=== PATIENT | female | born 1945 | race African-American/Black ===

== ENCOUNTER 2017-03-18 20:50 | Inpatient (IN) | payer OTHER, MEDICAID ==
[~2017-03-18] VITALS: Ht 152.4 cm; Wt 65.8 kg
[2017-03-18 21:02] VITALS: BP 102/63
--- NOTE | 2017-03-18 21:56 | NUR ---
PT TAKEN TO BED 10
--- NOTE | 2017-03-18 21:56 | NUR ---
PT FAMILY DID STATE PT ON 02 AT HOME BUT PT CURRENTLY O2SAT IS 100% ON ROOM AIR
--- NOTE | 2017-03-18 21:56 | NUR ---
71Y F BIB FAMILY C/O GENERALIZED WEAKNESS WITH DIARRHEA X 2 WKS. HX. , HTN, HEART MURMUR, LESION AT LUNG, ON O2 AT HOME. PT IS VERBAL AND OBEYS SIMPLE COMMANDS. PT STATES SHE LOSS 20LBS 2 WEEKS AGO WHEN SHE HAD DIARRHEA. FAMILY STATES 2 WEEKS AGO PT WAS AMBULATORY WITH WALKER BUT NOT DOES NOT WANT TO WALK. PT AAOX4. FAMILY IS AT BEDSIDE.
[2017-03-18] MEDS ORDERED: NACL 0.9% 500 ML IV SCH (22:18)
[2017-03-18] MEDS ORDERED: NACL 0.9% 500 ML IV ONE (22:20)
[2017-03-18 22:51] LABS: APPEARANCE,URINE CLEAR (CLEAR); BILIRUBIN,URINE NEGATIVE (NEGATIVE); BLOOD, URINE NEGATIVE (NEGATIVE); COLOR,URINE YELLOW (YELLOW); LEUKOCYTE ESTERASE ,URINE NEGATIVE (NEGATIVE); NITRITE, URINE NEGATIVE (NEGATIVE); UGLUCOSE NEGATIVE (NEGATIVE)
[2017-03-18 22:54] LABS: BASOPHILS % (AUTO) 0.9 % (0.0-2.0); EOSINOPHILS # (AUTO) 0.1 K/uL (0-0.4); EOSINOPHILS % (AUTO) 2.1 % (0.0-4.0); HEMOGLOBIN 10.9 g/dL (12.0-16.0); MEAN CORPUSCULAR HEMOGLOBIN 27 pg (27-31); MEAN CORPUSCULAR HGB CONC 33 g/dL (33-37); MEAN CORPUSCULAR VOLUME 83 fL (80-94); MONOCYTES # (AUTO) 0.7 K/uL (0.8-1.0); MONOCYTES % (AUTO) 13.2 % (1.7-9.3); NEUTROPHILS # (AUTO) 3.6 K/uL (1.8-7.7); NEUTROPHILS % (AUTO) 65.8 % (42.2-75.2); PLATELET COUNT (AUTO) 173 K/uL (140-450); RED CELL DISTRIBUTION WIDTH 15.2 % (11.6-13.7); WHITE BLOOD COUNT (AUTO) 5.4 K/uL (4.8-10.8)
[2017-03-18 22:59] LABS: ALBUMIN 3.7 g/dL (3.4-5.0); ANION GAP 16.5 (8-16); ASPARTATE AMINOTRANSFERASE 29 U/L (15-37); CARBON DIOXIDE 24.5 mmol/L (21-32); CHLORIDE 100 mmol/L (98-107); CREATININE 1.9 mg/dL (0.6-1.3); GLUCOSE 109 mg/dL (74-106); SODIUM SERUM 137 mmol/L (136-145); TOTAL BILIRUBIN 0.5 mg/dL (0.0-1.0); UREA NITROGEN, BLOOD 25 mg/dL (7-18)
[2017-03-18 23:12] LABS: HYALINE CASTS, URINE 0-10 /LPF (None Seen); RBC,URINE 0-5 (RARE) /HPF (0-5); WBC,URINE 0-5 (RARE) /HPF (0-5)
[2017-03-18] MEDS ORDERED: CLOPIDOGREL 75 MG TAB PO ONE (23:35)
[2017-03-18] MEDS ORDERED: ASPIRIN 81 MG TAB.CHEW PO ONE (23:35)
--- NOTE | 2017-03-19 00:06 | NUR ---
EMERGENCY CONTACT ROSIBEL PISANO [phone]
[2017-03-19] MEDS ORDERED: LEVA0.6318 INH (00:08)
[2017-03-19] MEDS ORDERED: DALIRESP PO (00:08)
[2017-03-19] MEDS ORDERED: ZOLP5TAB1 PO (00:08)
[2017-03-19] MEDS ORDERED: BUDE1AER IH (00:08)
[2017-03-19] MEDS ORDERED: HYDROcodone/APAP 5/325 MG 1 TAB TAB PO PRN (00:10)
[2017-03-19] MEDS ORDERED: NON-FORMULARY ITEM (Levalbuterol HCl* (Xopenex*) 0.63 MG) INH PRN (00:10)
[2017-03-19] MEDS ORDERED: NITROGLYCERIN 0.4 MG TAB SL PRN (00:10)
[2017-03-19] MEDS ORDERED: ACETAMINOPHEN 325 MG TAB PO PRN (00:10)
[2017-03-19] MEDS ORDERED: MORPHINE SULFATE 2 MG/ML SYR IVP PRN (00:10)
[2017-03-19] MEDS ORDERED: ONDANSETRON 4 MG/2 ML VIAL IVP PRN (00:10)
[2017-03-19] MEDS ORDERED: ALUMINUM HYD/MAG/SIMETHICONE 30 ML UDC PO PRN (00:10)
[2017-03-19] MEDS ORDERED: LORazepam 1 MG TAB PO PRN (00:10)
[2017-03-19] MEDS ORDERED: ATOR20TA PO (00:14)
[2017-03-19] MEDS ORDERED: HYDR100T79 PO (00:14)
[2017-03-19] MEDS ORDERED: TRA200 PO (00:14)
[2017-03-19] MEDS ORDERED: VALS320T2 PO (00:14)
[2017-03-19] MEDS ORDERED: RISP0.5T3 PO (00:14)
[2017-03-19] MEDS ORDERED: FERR325E14 PO (00:14)
[2017-03-19] MEDS ORDERED: HYDR-133 PO (00:14)
[2017-03-19 00:35] VITALS: BP 145/75
--- NOTE | 2017-03-19 00:35 | NUR ---
RECEIVED PATIENT FROM ER. PATIENT A&OX4. PATIENT DENIES PAIN. PATIENT STATES HAVING SHORTNESS OF BREATH, HEAD OF THE BED IN HIGH POSITION, O2 SAT IS 100% ON ROOM AIR. PATIENT IS NOT IN OBVIOUS DISTRESS. IV SITE PATENT AND INTACT. PATIENT IS ORIENTED TO ROOM. SAFETY MEASURES ENSURED. CALL LIGHT WITHIN REACH. WILL CONTINUE TO MONITOR.
--- NOTE | 2017-03-19 00:40 | NUR ---
Patient will be admitted to care of DR GARCIA. Admited to TELE 124A. Will go to room 124A. Belongings list completed. Report to KAUR FRANCISCO .
[2017-03-19 04:00] VITALS: BP 119/62
--- NOTE | 2017-03-19 05:15 | NUR ---
PATIENT RESTING IN BED. PATIENT DENIES PAIN. STATES SLIGHT SOB. HEAD OF BED IN HIGH POSITION. O2 IS AT 2L VIA NASAL CANNULA. NO SIGNS OF DISTRESS NOTED. SAFETY MEASURES ENSURED. CALL LIGHT WITHIN REACH. WILL CONTINUE TO MONITOR.
--- NOTE | 2017-03-19 07:16 | NUR ---
ENDORSED PLAN OF CARE TO AM RN. PATIENT IN STABLE CONDITION.
--- NOTE | 2017-03-19 07:17 | NUR ---
RECEIVED REPORT FROM RESCUE WORKER NURSE. PATIENT LYING IN BED SLEEPING, AROUSABLE BY VOICE. NO DISTRESS NOTED. DENIES ANY PAIN AT THIS TIME. RESPIRATIONS EVEN, UNLABORED, ON O2 2L/MIN VIA NC. AAOX4, CALM, COOPERATIVE, SKIN WARM TO TOUCH, COLOR APPROPRIATE TO ETHNICITY. LUNGS CTA ON ALL LOBES. ABDOMEN SOFT, NON-DISTENDED. IV SITE INTACT, PATENT, ON SALINE LOCK. SKIN IS INTACT THROUGHOUT BODY. PATIENT IS ON BEDREST. REVIEWED PLAN OF CARE WITH PATIENT. PATIENT VERBALIZED UNDERSTANDING. SAFETY MEASURES IN PLACE, CALL LIGHT WITHIN REACH, FALL PREVENTIONS IN PLACE. WILL CONTINUE TO MONITOR.
[2017-03-19 07:28] LABS: CREATINE KINASE MB 7.2 ng/mL (0-3.6)
[2017-03-19 08:00] VITALS: BP 113/65
[2017-03-19] MEDS ORDERED: BUDESONIDE IH SCH (09:00)
[2017-03-19] MEDS ORDERED: FORMOTEROL FUMARATE IH SCH (09:00)
[2017-03-19] MEDS ORDERED: [UNRECOGNIZED DRUG - OTHER] IH SCH (09:00)
[2017-03-19] MEDS ORDERED: XOPENEX INHALER INH PRN (09:30)
[2017-03-19] MEDS: DOCUSATE SODIUM 100 MG GELCAP PO SCH (09:30)
--- NOTE | 2017-03-19 09:33 | NUR ---
PATIENT LYING DOWN IN BED SLEEPING, AROUSABLE BY VOICE. NO DISTRESS NOTED. DENIES ANY PAIN. SCHEDULED MEDICATIONS DUE GIVEN. PATIENT TOLERATED WELL. TREMORS NOTED ON B/L UE AND HEAD UPON ACTIVITY. SAFETY MEASURES IN PLACE, CALL LIGHT WITHIN REACH. WILL CONTINUE TO MONITOR.
[2017-03-19] MEDS ORDERED: ALBUTEROL SULFATE/IPRATROPIU 3 ML SOL IH PRN (09:40)
--- NOTE | 2017-03-19 09:50 | NUR ---
PATIENT HAS BEEN SCREENED AND CATEGORIZED HIGH NUTRITION RISK. PATIENT WILL BE SEEN WITHIN 1-2 DAYS OF ADMISSION. 03/19/17-03/20/[address]
--- NOTE | 2017-03-19 11:30 | NUR ---
PATIENT SITTING IN BED COMFORTABLY. NO DISTRESS NOTED. DENIES ANY PAIN AT THIS TIME. RESPIRATIONS EVEN, UNLABORED, ON O2 2L/MIN VIA NC. SAFETY MEASURES IN PLACE, CALL LIGHT WITHIN REACH. WILL CONTINUE TO MONITOR.
[2017-03-19 12:00] VITALS: BP 128/73
--- NOTE | 2017-03-19 12:30 | NUR ---
PATIENT SITTING IN BED WITH LUNCH TRAY IN FRONT. NO DISTRESS NOTED. DENIES ANY PAIN AT THIS TIME. ASSISTED KOSHER DIETARY SERVICE MANAGER IN CLEANING AND REPOSITIONING PATIENT. SAFETY MEASURES IN PLACE, CALL LIGHT WITHIN REACH. WILL CONTINUE TO MONITOR.
--- NOTE | 2017-03-19 13:15 | NUR ---
Jonathan SAMANIEGO, AT BEDSIDE REVIEWING PLAN OF CARE WITH PATIENT. WILL CONTINUE TO MONITOR.
--- NOTE | 2017-03-19 13:45 | NUR ---
DR. VASQUEZ AT BEDSIDE REVIEWING PLAN OF CARE WITH PATIENT. WILL CONTINUE TO MONITOR.
[2017-03-19] MEDS: NACL 0.9% 1,000 ML IV SCH ×2 (13:54→18:48)
[2017-03-19] MEDS: ALBUTEROL SULFATE/IPRATROPIU 3 ML SOL IH SCH ×2 (14:51→19:56)
[2017-03-19 15:18] LABS: CREATINE KINASE MB 7.4 ng/mL (0-3.6)
[2017-03-19 16:00] VITALS: BP 137/72
--- NOTE | 2017-03-19 16:47 | NUR ---
PATIENT SITTING IN BED WATCHING TV. NO DISTRESS NOTED. CONDITION UNCHANGED. ASSISTED WAREHOUSE SHIFT SUPERVISOR IN CLEANING AND REPOSITIONING PATIENT. SAFETY MEASURES IN PLACE, CALL LIGHT WITHIN REACH. WILL CONTINUE TO MONITOR.
--- NOTE | 2017-03-19 17:30 | NUR ---
ASSISTED PATIENT ON BEDPAN AND CLEANED AND REPOSITIONED PATIENT AFTERWARDS. BED ALARM ON. WILL CONTINUE TO MONITOR.
[2017-03-19] MEDS ORDERED: ECOTRIN 81 MG TABEC PO SCH (17:33)
--- NOTE | 2017-03-19 18:49 | NUR ---
PATIENT SITTING IN BED WATCHING TV. NO DISTRESS NOTED. DENIES ANY PAIN. SCHEDULED MEDICATIONS DUE GIVEN. SAFETY MEASURES IN PLACE, CALL LIGHT WITHIN REACH. WILL CONTINUE TO MONITOR.
--- NOTE | 2017-03-19 19:20 | NUR ---
GAVE REPORT TO EMT DISPATCHER NURSE TO CONTINUITY OF CARE. PATIENT IN STABLE CONDITION.
--- NOTE | 2017-03-19 19:22 | NUR ---
RECEIVED PT SLEEPING, EASILY AROUSABLE, AAOX4, DENIES ANY PAIN, NO SOB NOTED, VITAL SIGNS STABLE, IVF INFUSING WELL, PLAN OF CARE DISCUSS, SAFETY MEASURES IN PLACE, CALL LIGHT WITHIN REACH.
[2017-03-19 20:00] VITALS: BP 141/66
--- NOTE | 2017-03-19 20:10 | NUR ---
PT USES BEDPAN WITH ASSIST FORM TEST CONSULTANT, VOIDED FREELY.
[2017-03-19] MEDS ORDERED: DALIRESP 500 MCG PO SCH (21:00)
--- NOTE | 2017-03-19 21:10 | NUR ---
DUE PO MEDS TAKEN WITH EDUCATION PROVIDED, READY FOR CPAP, WILL NOTIFY RT, ALL NEEDS ATTENDED.
[2017-03-19] MEDS: DALIRESP 500MCG TAB PO SCH (21:12)
[2017-03-19] MEDS: SYMBICORT INH SCH (21:12)
[2017-03-19] MEDS: ZOLPIDEM 5 MG TAB PO SCH (21:12)
--- NOTE | 2017-03-19 21:35 | NUR ---
CALLED TO BEDSIDE, PT IS READY TO SLEEP, PLACED ON CPAP, TOLERATING WELL, PT STATES COMFORT, CONT PULSE OX ON O2 SAT 100%, WILL CONT TO MONITOR.
[2017-03-20] VITALS: BP 150/89
--- NOTE | 2017-03-20 | NUR ---
PT SLEEPING, EASILY AROUSABLE, VITAL SIGNS TAKEN, BP SLIGHTLY ELEVATED, DENIES CHEST PAIN, NO SOB NOTED, ON C-PAP, TOLERATING WELL, IVF INFUSING WELL, CONTINUE TO MONITOR CLOSELY.
[2017-03-20] MEDS: NACL 0.9% 1,000 ML IV SCH ×5 (00:53→16:43)
--- NOTE | 2017-03-20 03:49 | NUR ---
PT SLEEPING, EASILY AROUSABLE, VITAL SIGNS TAKEN, BP ELEVATED 162/91, ASYMPTOMATIC, DENIES ANY PAIN, NO SOB NOTED, ON C-PAP AT THIS TIME, PAGED DR Amanda GARCIA, WITH NEW ORDER.
[2017-03-20 04:00] VITALS: BP 162/91
[2017-03-20] MEDS: cloNIDine 0.1 MG TAB PO PRN ×3 (04:06→20:07)
--- NOTE | 2017-03-20 05:39 | NUR ---
PT READY TO BE TAKEN OFF CPAP FOR THE DAY, PLACED ON 1LPM NC, TOLERATING WELL, O2 SAT 100%, WILL ENDORSE TO DAY SHIFT
--- NOTE | 2017-03-20 05:50 | NUR ---
BP RECHECKED WITH 157/82, HR-74, ASYMPTOMATIC, DENIES ANY PAIN, NO SOB NOTED, ON O2 AT 1L/NC, SAT-100%, IVF INFUSING WELL, MONITORED CLOSELY.
[2017-03-20 06:13] LABS: BASOPHILS # (AUTO) 0.1 K/uL (0.00-0.22); EOSINOPHILS # (AUTO) 0.1 K/uL (0-0.4); LYMPHOCYTES # (AUTO) 0.8 K/uL (2.5-16.5); LYMPHOCYTES % (AUTO) 17.5 % (20.5-51.1); MONOCYTES # (AUTO) 0.6 K/uL (0.8-1.0); RED CELL DISTRIBUTION WIDTH 15.1 % (11.6-13.7)
[2017-03-20 06:32] LABS: BASOPHILS % (AUTO) 1.8 % (0.0-2.0); EOSINOPHILS % (AUTO) 2.8 % (0.0-4.0); HEMATOCRIT 28.5 % (36-48); HEMOGLOBIN 9.6 g/dL (12.0-16.0); MEAN CORPUSCULAR HEMOGLOBIN 28 pg (27-31); MEAN CORPUSCULAR HGB CONC 34 g/dL (33-37); MEAN CORPUSCULAR VOLUME 82 fL (80-94); MONOCYTES % (AUTO) 13.4 % (1.7-9.3); NEUTROPHILS # (AUTO) 3.1 K/uL (1.8-7.7); NEUTROPHILS % (AUTO) 64.5 % (42.2-75.2); PLATELET COUNT (AUTO) 149 K/uL (140-450); RED BLOOD CELL COUNT(AUTO) 3.46 MIL/uL (4.20-5.40); WHITE BLOOD COUNT (AUTO) 4.7 K/uL (4.8-10.8)
[2017-03-20 06:37] LABS: ANION GAP 12.7 (8-16); CARBON DIOXIDE 23.3 mmol/L (21-32); CHLORIDE 102 mmol/L (98-107); CREATININE 1.3 mg/dL (0.6-1.3); GLUCOSE 103 mg/dL (74-106); SODIUM SERUM 134 mmol/L (136-145); UREA NITROGEN, BLOOD 22 mg/dL (7-18)
[2017-03-20 06:45] LABS: MAGNESIUM 1.1 mg/dL (1.8-2.4); PHOSPHORUS 2.7 mg/dL (2.5-4.9)
--- NOTE | 2017-03-20 07:18 | NUR ---
PT EASILY AROUSABLE, NO DISTRESS NOTED, BEDSIDE REPORT GIVEN TO RN KY FOR CONTINUITY OF CARE.
--- NOTE | 2017-03-20 07:19 | NUR ---
RECEIVED REPORT FROM CONDENSER OPERATOR RN AT BEDSIDE FOR CONTINUITY OF CARE. PATIENT IS SLEEPING, EASILY AROUSABLE, AAOX4, DENIES ANY PAIN, NO SOB NOTED, BREATHING EVEN AND UNLABORED. IV ON R AC WITH NS @ 200 ML/HR, INFUSING WELL, SCDS IN PLACE, SAFETY MEASURES IN PLACE, BED ON LOWEST SETTING, BED ALARM ON, CALL LIGHT WITHIN REACH, WILL CONTINUE TO MONITOR PATIENT.
[2017-03-20] MEDS: SYMBICORT INH SCH ×2 (07:30→19:03)
[2017-03-20] MEDS: ALBUTEROL SULFATE/IPRATROPIU 3 ML SOL IH SCH ×3 (07:32→19:01)
[2017-03-20 08:00] VITALS: BP 136/78
[2017-03-20] MEDS: DOCUSATE SODIUM 100 MG GELCAP PO SCH (08:17)
[2017-03-20] MEDS: DALIRESP 500MCG TAB PO SCH ×2 (08:17→20:07)
--- NOTE | 2017-03-20 08:20 | NUR ---
ADMINISTERED MORNING MEDICATIONS, PATIENT TOLERATED IT WELL. PATIENT'S OWN INHALER, SYMBICORT, WAS NOT FOUND IN PYXIS, YELLOW BIN, OR PATIENT'S ROOM. PHARMACY MADE AWARE, THEY STATED THAT IT SHOULD BE ON THE FLOOR. MEDICATION NOT ADMINISTERED. NO SIGNS OF DISTRESS OR SOB NOTED, PATIENT BREATHING EVEN AND UNLABORED ON O2 1L VIA NC. SAFETY MEASURES IN PLACE, CALL LIGHT WITHIN REACH, WILL CONTINUE TO MONITOR PATIENT..
[2017-03-20] MEDS ORDERED: DALIRESP 500 MCG PO SCH (09:00)
[2017-03-20] MEDS ORDERED: MAG SULF 2000 MG/WATER PREMIX 50 ML IV SCH (09:31)
--- NOTE | 2017-03-20 10:15 | NUR ---
PHYSICAL THERAPY WITH THE PATIENT. WILL AWAIT RESULTS.
--- NOTE | 2017-03-20 10:45 | NUR ---
PATIENT'S COUSIN, ROSIBEL, CALLED. SHE WAS UPDATED WITH PATIENT' PLAN OF CARE. PATIENT CURRENTLY RESTING IN BED, RECD. BREATHING EVEN AND UNLABORED. SAFETY MEASURES IN PLACE, BED ON LOWEST SETTING, BED ALARM ON, CALL LIGHT WITHIN REACH, WILL CONTINUE TO MONITOR PATIENT..
[2017-03-20 12:00] VITALS: BP 169/81
--- NOTE | 2017-03-20 12:45 | NUR ---
PATIENT RESTING, FAMILY AT BEDSIDE. NO SIGNS OF DISTRESS OR SOB NOTED. BREATHING EVEN AND UNLABORED. SAFETY PRECAUTIONS IN PLACE, BED ON LOWEST SETTING, BED ALARM ON, CALL LIGHT WITHIN REACH, WILL CONTINUE TO MONITOR PATIENT.
--- NOTE | 2017-03-20 15:14 | NUR ---
03/20/2017 RD INITIAL ASSESSMENT COMPLETED PLEASE REFER TO NUTRITION ASSESSMENT UNDER CARE ACTIVITY FOR ESTIMATED NUTRITIONAL NEEDS. 1. CONTINUE CURRENT DIET TOLERATED. RD TO FOLLOW-UP IN 3-5 DAYS PATIENT IS MODERATE RISK. ANAYELI ZAVALA RD
--- NOTE | 2017-03-20 15:30 | NUR ---
PATIENT'S NIECE, ROSIBEL, STATED THAT THE PATIENT HAD RECENTLY HAD A CT OF THE ABDOMEN DONE AT [facility], RESULTS SENT TO HER PCP, DR. LYNN VICTOR. DR. VASQUEZ AWARE. HE REQUESTED THOSE RECORDS. DISCLOSURE OF HEALTH INFORMATION FORM SIGNED BY PATIENT HAS BEEN FAXED OVER TO DR. VICTOR'S OFFICE AT [phone]. AWAITING RESPONSE.
[2017-03-20 16:00] VITALS: BP 147/74
--- NOTE | 2017-03-20 17:15 | NUR ---
PATIENT RESTING IN BED, NO SIGNS OF DISTRESS NOTED. PATIENT DENIES PAIN. SAFETY PRECAUTIONS IN PLACE, BED ON LOWEST SETTING, BED ALARM ON, CALL LIGHT WITHIN REACH. WILL CONTINUE TO MONITOR PATIENT.
--- NOTE | 2017-03-20 19:20 | NUR ---
REPORT GIVEN TO MAINTENANCE PLANNER NURSE AT BEDSIDE FOR CONTINUITY OF CARE. PATIENT IN STABLE CONDITION.
--- NOTE | 2017-03-20 19:21 | NUR ---
PATIENT REPORT RECEIVED FROM MORNING NURSE AT BEDSIDE. PATIENT IS AWAKE AND ALERT. NO SIGNS AND SYMPTOMS OF DISTRESS NOTED. NO COMPLAINTS OF PAIN AT THIS TIME. IV SITE NOTED ON RIGHT AC, IVF INFUSING WELL. PATIENT ON O2 1L NC. SKIN IS INTACT. BED IN LOWEST POSITION, SIDE RAILS UP AND CALL LIGHT WITHIN REACH. WILL CONTINUE TO MONITOR.
[2017-03-20 20:00] VITALS: BP 158/89
[2017-03-20] MEDS: ZOLPIDEM 5 MG TAB PO SCH (20:06)
--- NOTE | 2017-03-20 22:00 | NUR ---
ASSISTED PATIENT WITH BEDPAN. PATIENT VOIDED. PERICARE DONE. PATIENT TOLERATED WELL. WILL CONTINUE TO MONITOR.
[2017-03-21] VITALS: BP 147/86
--- NOTE | 2017-03-21 | NUR ---
CHECKED ON PATIENT PATIENT IS ASLEEP. NO SIGNS AND SYMPTOMS OF DISTRESS NOTED. BREATHING EVEN AND UNLABORED. BED IN LOWEST POSITION, SIDE RAILS UP. WILL CONTINUE TO MONITOR.
[2017-03-21 04:00] VITALS: BP 140/74
--- NOTE | 2017-03-21 04:00 | NUR ---
CHECKED ON PATIENT. PATIENT IS ASLEEP. NO SIGNS AND SYMPTOMS OF DISTRESS NOTED. WILL CONTINUE TO MONITOR.
[2017-03-21] MEDS: NACL 0.9% 1,000 ML IV SCH (04:04)
[2017-03-21 05:47] LABS: BASOPHILS % (AUTO) 0.5 % (0.0-2.0); EOSINOPHILS # (AUTO) 0.1 K/uL (0-0.4); EOSINOPHILS % (AUTO) 2.1 % (0.0-4.0); HEMATOCRIT 26.4 % (36-48); HEMOGLOBIN 8.8 g/dL (12.0-16.0); LYMPHOCYTES # (AUTO) 0.7 K/uL (2.5-16.5); MEAN CORPUSCULAR HEMOGLOBIN 28 pg (27-31); MEAN CORPUSCULAR HGB CONC 33 g/dL (33-37); MEAN CORPUSCULAR VOLUME 84 fL (80-94); MONOCYTES # (AUTO) 0.6 K/uL (0.8-1.0); NEUTROPHILS % (AUTO) 67.4 % (42.2-75.2); PLATELET COUNT (AUTO) 152 K/uL (140-450); RED BLOOD CELL COUNT(AUTO) 3.16 MIL/uL (4.20-5.40); WHITE BLOOD COUNT (AUTO) 4.4 K/uL (4.8-10.8)
[2017-03-21 06:22] LABS: MAGNESIUM 1.3 mg/dL (1.8-2.4); PHOSPHORUS 2.7 mg/dL (2.5-4.9)
[2017-03-21] MEDS: SYMBICORT INH SCH (07:08)
--- NOTE | 2017-03-21 07:10 | NUR ---
PATIENT REPORT GIVEN TO MORNING NURSE AT BEDSIDE. PATIENT IS IN STABLE CONDITION
--- NOTE | 2017-03-21 07:11 | NUR ---
RECEIVED REPORT FROM THE PIPE ORGAN TUNER AND REPAIRER NURSE AT BEDSIDE FOR CONTINUITY OF CARE. PT IS AWAKE AND ORIENTED. INTRODUCED MYSELF AND UPDATED THE BOARD. PT HAS A NC ON O2 1L. NO SIGNS OF RESPIRATORY DISTRESS. BREATHING NORMAL AND REGULAR. PT IS ON BEDREST. SKIN INTACT. PT HAS AN IV R AC 18G NS INFUSING AT 100ML. PUMP IS BEEPING. PT BENDS HER ARM. NEED TO REMIND TO KEEP HER ARM STRAIGHT. MORNING LABS STILL PENDING. MG 1.3. STILL LOW, PER PIPE ORGAN TUNER AND REPAIRER SHE HAD MAG RIDER YESTERDAY. WILL NOTIFY MD. WILL CONTINUE TO MONITOR PT.
[2017-03-21] MEDS: ALBUTEROL SULFATE/IPRATROPIU 3 ML SOL IH SCH ×2 (07:14→12:41)
--- NOTE | 2017-03-21 07:45 | NUR ---
V/S WITHIN NORMAL RANGE. BP SLIGHTLY ELEVATED 156/79. NC OFF. NO SIGNS OF DISTRESS. DENIES PAIN. BREAKFAST IS HERE. PT READY TO EAT. CUT UP FOOD FOR PT. OPENED ALL BEVERAGES. PT SIGNED THE CONSENT FOR MR RELEASE. WILL CONTINUE TO MONITOR PT.
[2017-03-21 08:00] VITALS: BP 156/79
--- NOTE | 2017-03-21 08:03 | NUR ---
FAXED THE MR RELEASE TO [facility]. CONFIRMATION AND FAX IN CHART. WILL AWAIT RECORDS.
[2017-03-21 08:17] LABS: CARBON DIOXIDE 24.4 mmol/L (21-32); CHLORIDE 102 mmol/L (98-107); CREATININE 1.1 mg/dL (0.6-1.3); GLUCOSE 97 mg/dL (74-106); POTASSIUM 4.4 mmol/L (3.5-5.1); SODIUM SERUM 133 mmol/L (136-145); UREA NITROGEN, BLOOD 15 mg/dL (7-18)
[2017-03-21] MEDS: DALIRESP 500MCG TAB PO SCH (08:41)
[2017-03-21] MEDS: cloNIDine 0.1 MG TAB PO PRN (08:42)
[2017-03-21] MEDS: DOCUSATE SODIUM 100 MG GELCAP PO SCH (08:42)
--- NOTE | 2017-03-21 08:44 | NUR ---
ADMINISTERED MORNING MEDS. INCLUDING CLONIDINE, BP 156/79. PT TOLERATED WELL. WILL CONTINUE TO MONITOR PT.
[2017-03-21 09:11] LABS: IMMUNOGLOBULIN A 119 mg/dL (64-422); IMMUNOGLOBULIN G 708 mg/dL (700-1600); IMMUNOGLOBULIN M 94 mg/dL (26-217)
--- NOTE | 2017-03-21 09:57 | NUR ---
LATE ENTRY. P/T HERE TO GET PT UP. DAUGHTER CALLED TO F/U ON PT. WILL CONTINUE TO MONITOR PT.
--- NOTE | 2017-03-21 11:00 | NUR ---
DR. GARCIA WAS HERE TO SEE PT. PER , PT IS GOOD FOR D/C. ORDER IN. SPOKE TO DR. VASQUEZ. THEY BOTH AGREE SHE NEEDS TO BE F/U OUT PT.
--- NOTE | 2017-03-21 11:56 | NUR ---
CALLED ROSIBEL, PT'S COUSIN WHO IS HER CAREGIVER. NOTIFIED HER OF PT'S D/C. PT IS AWARE. D/C INSTRUCTIONS WILL BE ON HOLD UNTIL CAREGIVER GETS HERE. REMOVED IV, CANNULA INTACT. WILL AWAIT ROSIBEL'S ARRIVAL AND WILL GO OVER DC INSTRUCTIONS TOGETHER. WILL CONTINUE TO MONITOR PT.
[2017-03-21 12:00] VITALS: BP 149/88
--- NOTE | 2017-03-21 12:15 | NUR ---
D/C INSTRUCTIONS GIVEN TO PATIENT AND CAREGIVER. ANSWERED ALL QUESTIONS. VERBALIZED UNDERSTANDING. PT REMOVED ID BANDS AND TELE MONITOR. CAREGIVER WILL GET HER DRESSED AND WILL LET ME KNOW WHEN THEY ARE READY TO GO.
--- NOTE | 2017-03-21 12:35 | NUR ---
PT WHEELED OUT IN A WHEELCHAIR, ACCOMPANIED BY ROSIBEL, CAREGIVER AND FAMILY. ALL PERSONAL BELONGINGS WITH PT. STOPPED AT THE PHARMACY AND PICKED UP HOME MEDS. PT IN STABLE CONDITION.
== END 2017-03-21 12:35 | disposition home or self-care (01) | DRG 682 ==
LOC: MED 20:50 → MTU 03-19 00:19
PROVIDERS: ADMIT Preventive Medicine Preventive Medicine/Occupational Environmental Medicine; ATTEND Preventive Medicine Preventive Medicine/Occupational Environmental Medicine
DX: N17.9 Acute kidney failure, unspecified (principal); J96.00 Acute respiratory failure, unspecified whether with hypoxia or hypercapnia; E83.52 Hypercalcemia; D64.9 Anemia, unspecified; I34.0 Nonrheumatic mitral (valve) insufficiency; E83.42 Hypomagnesemia; J44.9 Chronic obstructive pulmonary disease, unspecified; E78.5 Hyperlipidemia, unspecified; G47.00 Insomnia, unspecified; K70.30 Alcoholic cirrhosis of liver without ascites; R73.9 Hyperglycemia, unspecified; N18.9 Chronic kidney disease, unspecified; I12.9 Hypertensive chronic kidney disease with stage 1 through stage 4 chronic kidney disease, or unspecified chronic kidney disease; Z80.9 Family history of malignant neoplasm, unspecified; Z82.49 Family history of ischemic heart disease and other diseases of the circulatory system
CPT/HCPCS: 36415; 71045; 80048; 80053; 81001; 82306; 82550; 82553; 83605; 83735; 83880; 84100; 84165; 84484; 85025; 85610; 85730; 86334; 87040; 87081; 87086; 93005; 94640; 94660; 94664; 96360; 96361; 97110; 97116; 97140; 97530; 99285; J3475; J7030; J7620; Q0092

== ENCOUNTER 2017-03-28 01:55 | Inpatient (IN) | payer OTHER, MEDICAID ==
[~2017-03-28] VITALS: Ht 167.6 cm; Wt 68.5 kg
[~2017-03-28 01:55] MED LIST: ATOR20TA PO; BUDE1AER IH; DALIRESP PO; FERR325E14 PO; HYDR100T79 PO; LEVA0.6318 INH; RISP0.5T3 PO; TRA200 PO; ZOLP5TAB1 PO
[2017-03-28 01:59] VITALS: BP 160/90
--- NOTE | 2017-03-28 02:15 | NUR ---
BIB WHEELCHAIR TO ER BED 11
[2017-03-28] MEDS ORDERED: ALBUTEROL SULFATE/IPRATROPIU 3 ML SOL IH ONE ×2 (02:17→02:20)
--- NOTE | 2017-03-28 02:25 | NUR ---
PT BIB FAMILY FOR SOB. PT COUSIN STATES PT WAS D/C FROM [facility] ON Mar, FOR SAME SYMPTOMS AND THEY HAVE NOT SUBSIDED. PT C/O SOB, FEVER, RUNNY NOSE, DIARRHEA, GENERALIZED WEAKNESS, LOSS OF APPETITE. RR ARE EVEN AND LABORED, BL BS WHEEZES ON INSPIRATION. PT IS USUALLY ON 02 AT HOME 2L VIA N.C. ABD IS ROUND, SOFT, NON TENDER ACTIVE BS X4. PT COUSIN STATES SHE GAVE TYLENOL EARLIER FOR FEVER. PT IS LAYING IN BED, RT AT BEDSIDE FOR BREATHING TX, PT IS AWAKE AND ALERT, FAMILY AT BEDSIDE, ER MD AWARE OF PT STATUS.
--- NOTE | 2017-03-28 02:29 | NUR ---
RT AT BEDSIDE FOR TX.
[2017-03-28] MEDS ORDERED: methylPREDNISolone SS 125 MG in WATER STERILE 2 ML IV ONE (02:40)
--- NOTE | 2017-03-28 02:55 | NUR ---
HOUSE SUP CALLED FOR MEDICATION NOT AVAILBLE IN ER PYXIS.
[2017-03-28] MEDS ORDERED: methylPREDNISolone SS 125 MG/2 ML VIAL ONE (02:58)
[2017-03-28 02:59] LABS: HEMATOCRIT 27.3 % (36-48); HEMOGLOBIN 8.9 g/dL (12.0-16.0); MEAN CORPUSCULAR HEMOGLOBIN 27 pg (27-31); MEAN CORPUSCULAR HGB CONC 33 g/dL (33-37); MEAN CORPUSCULAR VOLUME 83 fL (80-94); PLATELET COUNT (AUTO) 285 K/uL (140-450); RED BLOOD CELL COUNT(AUTO) 3.28 MIL/uL (4.20-5.40); RED CELL DISTRIBUTION WIDTH 15.7 % (11.6-13.7); WHITE BLOOD COUNT (AUTO) 6.9 K/uL (4.8-10.8)
[2017-03-28 03:14] LABS: LYMPHOCYTES % (MANUAL) 6 % (20-46); MONOCYTES % (MANUAL) 8 % (5-12)
[2017-03-28 03:18] LABS: ANION GAP 11.3 (8-16); CARBON DIOXIDE 26.9 mmol/L (21-32); CHLORIDE 92 mmol/L (98-107); CREATININE 1.2 mg/dL (0.6-1.3); GLUCOSE 122 mg/dL (74-106); POTASSIUM 3.2 mmol/L (3.5-5.1); SODIUM SERUM 127 mmol/L (136-145); UREA NITROGEN, BLOOD 11 mg/dL (7-18)
--- NOTE | 2017-03-28 03:18 | NUR ---
DR MILLER AT BEDSIDE. RT AT BEDSIDE TO PLACE PT ON BIPAP. WILL CONTINUE TO MONITOR.
[2017-03-28 03:20] LABS: PROTHROMBIN TIME 12.7 secs (10.8-13.4)
[2017-03-28 03:30] LABS: ALBUMIN 3.2 g/dL (3.4-5.0); ASPARTATE AMINOTRANSFERASE 32 U/L (15-37); TOTAL BILIRUBIN 0.4 mg/dL (0.0-1.0)
--- NOTE | 2017-03-28 03:37 | NUR ---
0335 PT PLACED ON BIPAP. IPAP 12 EPAP 5 FIO2 28% AND RATE OF 12. PATIENT HAS SHORTNESS OF BREATH AND TOLERATES THE MASK AT THIS TIME. ABG WAS DRAWN AND HHNTX GIVEN
--- NOTE | 2017-03-28 04:45 | NUR ---
PT IN BED RESTING, VSS WILL CONTINUE TO MONITOR.
--- NOTE | 2017-03-28 06:22 | NUR ---
PT IN BED RESTING, NO NEW NEEDS AT THIS TIME, WILL CONTINUE TO MONITOR.
[2017-03-28 06:46] VITALS: BP 179/84
--- NOTE | 2017-03-28 06:50 | NUR ---
RECIVED PT ON VENT WITH SETTINGS CHARTED PT AWAKE ALERT AURA BIPAP WELL SOME LABORED BREATHING ON EXHALATION BREATH SOUNDS PRESENT BNILAT MOSTTLY CLEAR WITH SOME EXP RALES BIPAP PLUGGED INTO RED OUTLET AMBUBAG AT BEDSIDE
--- NOTE | 2017-03-28 07:22 | NUR ---
RECEIVED REPORT FROM MARYAM STEPHENS. Addendum: 03/28/17 at 0748 by [facility] Amendment undone in EDM - 03/28/17 at 0800 by [facility] Patient appears to be resting comfortably in bed , ON B PAP 28%.. Addendum: 03/28/17 at 0800 by [email or web address] Patient appears to be resting comfortably in bed , ON B PAP 28% R 15/MIN PURSE OX 99%, BP 165/86.WILL CONTINUE TO MONITOR.
--- NOTE | 2017-03-28 07:22 | NUR ---
Pt report given to MARYAM WONG. Transfer of care at this time.
--- NOTE | 2017-03-28 08:15 | NUR ---
PT TRANSPORTED FROM ER TO ROOM 118 NO ILL EFFECTS NOTED
--- NOTE | 2017-03-28 08:15 | NUR ---
PATIENT ARRIVED ON FLOOR VIA GURNEY WITH ER NURSES. REPORT RECEIVED FROM ER NURSE JUDITH AT BEDSIDE FOR CONTINUITY OF CARE. PATIENT AWAKE AND ALERT. ON BIPAP. O2 SAT AT 99%. BREATHING EVEN AND UNLABORED. LUNG SOUNDS DIMINISHED. PATIENT DENIES PAIN. BOWEL SOUNDS PRESENT. MRSA SCREEN DONE. PATIENT CHANGED INTO YELLOW GOWN FROM HER OWN CLOTHING, YELLOW SOCKS PUT ON PATIENT, AND FALLING STAR PUT ON THE DOOR. PATIENT ON CONTACT PRECAUTION FOR POSSIBLE CDIFF INFECTION. ALL NEEDS MET. ORIENTED PATIENT TO THE ROOM, CALL LIGHT AND PHONE. UPDATED BOARD. CONTACT AND SAFETY PRECAUTION IN PLACE, BED ALARM ON, BED ON LOWEST SETTING, CALL LIGHT WITHIN REACH. WILL CONTINUE TO MONITOR PATIENT. Addendum: 03/28/17 at 1930 by Mikhail Singer RN IV TO LEFT HAND, 20G, PATENT, ASYMPTOMATIC, INTACT, AND SALINE LOCK.
--- NOTE | 2017-03-28 08:16 | NUR ---
Patient will be admitted to care of dr davis. Admited to tele. Will go to room 118. Belongings list completed. Report to negra verdin.
[2017-03-28 08:20] VITALS: BP 164/96
--- NOTE | 2017-03-28 08:25 | NUR ---
PT TRANSPORTED FROM [address] AND BACK NO ILL EFFECTS NOTED WILL CONTINUE TO MONITOR PT ON BIPAP
--- NOTE | 2017-03-28 08:59 | NUR ---
PATIENT HAS BEEN SCREENED AND CATEGORIZED HIGH NUTRITION RISK. PATIENT WILL BE SEEN WITHIN 1-2 DAYS OF ADMISSION. 03/28/18-03/29/[address]
[2017-03-28] MEDS ORDERED: NACL 0.9% 1,000 ML IV SCH ×2 (09:56→15:34)
[2017-03-28] MEDS ORDERED: MORPHINE SULFATE 4 MG/ML SYR IVP PRN ×2 (10:00→15:35)
[2017-03-28] MEDS ORDERED: ONDANSETRON 4 MG/2 ML VIAL IM/IVP PRN (10:00)
[2017-03-28] MEDS ORDERED: HYDROcodone/APAP 7.5/325 MG 1 TAB PO PRN (10:00)
[2017-03-28] MEDS ORDERED: DOCUSATE SODIUM 100 MG GELCAP PO PRN (10:00)
[2017-03-28] MEDS ORDERED: ACETAMINOPHEN 325 MG TAB PO PRN ×2 (10:00→15:35)
--- NOTE | 2017-03-28 10:15 | NUR ---
PATIENT RESTING IN BED, NO SIGNS OF SOB OR DISTRESS NOTED. PATIENT DENIES PAIN. SAFETY AND ISOLATION PRECAUTIONS IN PLACE, WILL CONTINUE TO MONITOR PATIENT.
[2017-03-28 10:49] LABS: CHOL/HDL RATIO 2.8 (1-4.5); FREE T4 (FREE THYROXINE) 1.39 ng/dL (0.76-1.46); PHOSPHORUS 1.9 mg/dL (2.5-4.9); THYROID STIMULATING HORMONE 2.27 uIU/mL (0.34-3.74)
[2017-03-28] MEDS ORDERED: NON-FORMULARY ITEM (Levalbuterol HCl* (Xopenex*) 0.63 MG) INH PRN (10:50)
[2017-03-28 10:53] LABS: MAGNESIUM 0.8 mg/dL (1.8-2.4)
[2017-03-28] MEDS ORDERED: MAGNESIUM OXIDE 400 MG TAB PO SCH (11:00)
[2017-03-28] MEDS ORDERED: methylPREDNISolone SS 125 MG/2 ML VIAL IVP SCH (11:00)
[2017-03-28] MEDS ORDERED: AZITHROMYCIN 250 MG TAB PO SCH (11:15)
--- NOTE | 2017-03-28 11:25 | NUR ---
PATIENT'S BP WAS 184/89. MD MADE AWARE. PATIENT WAS ASSESSED. ONE DOSE OF LASIX ORDERED AND ADMINISTERED. ORDERED MEDICATIONS ADMINISTERED, PATIENT TOLERATED THEM WELL. SAFETY AND ISOLATION PRECAUTIONS IN PLACE, CALL LIGHT WITHIN REACH. WILL CONTINUE TO MONITOR PATIENT.
[2017-03-28] MEDS ORDERED: FUROSEMIDE 40 MG/4 ML VIAL IVP SCH (11:36)
[2017-03-28 12:00] VITALS: BP 168/86
--- NOTE | 2017-03-28 12:10 | NUR ---
CALLED RT TO REQUEST PATIENT BE OFF BIPAB FOR LUNCH PER PATIENT'S REQUEST. WILL WAIT RT'S RESPONSE.
--- NOTE | 2017-03-28 12:12 | NUR ---
PER EJ/RN PATIENT REQUESTING TO BE OFF BIPAP TO MASK REVIEWED PATIENT STATUS WITH Rylee LANGE RCP "OK TO REMOVE FROM BIPAP" PLACED PATIENT ON SUPPLEMENTAL OXYGEN AT 2 LPM VIA VT EJ/RN NOTIFIED
--- NOTE | 2017-03-28 12:20 | NUR ---
AWAKE AND ALERT NO EVIDENCE OF SOB NOTED TOLERATING SUPPLEMENTAL OXYGEN WELL SATURATION 99% KY/RN NOTIFIED
[2017-03-28] MEDS ORDERED: HYDRALAZINE HCL 100 MG PO SCH (13:00)
[2017-03-28] MEDS: hydrALAZINE 25 MG TAB PO SCH ×2 (13:22→16:35)
[2017-03-28] MEDS: IPRATROPIUM 0.02% 0.5 MG/2.5 ML NEBU INH PRN (13:47)
[2017-03-28] MEDS: ALBUTEROL 0.083% 2.5 MG/3 ML NEBU INH PRN ×2 (13:47→19:27)
--- NOTE | 2017-03-28 14:20 | NUR ---
SUNIL GLEASON, PH# [phone], CALLED FOR UPDATE ON PATIENT. UPDATED HER ON PLAN OF CARE, SHE VERBALIZED UNDERSTANDING. PATIENT RESTING IN BED, NO SIGNS OF SOB OR DISTRESS NOTED. PATIENT DENIES PAIN. SAFETY AND ISOLATION PRECAUTIONS IN PLACE, WILL CONTINUE TO MONITOR PATIENT.
[2017-03-28 16:00] VITALS: BP 163/91
[2017-03-28 16:29] LABS: APPEARANCE,URINE CLEAR (CLEAR); BILIRUBIN,URINE NEGATIVE (NEGATIVE); BLOOD, URINE NEGATIVE (NEGATIVE); COLOR,URINE YELLOW (YELLOW); LEUKOCYTE ESTERASE ,URINE NEGATIVE (NEGATIVE); NITRITE, URINE NEGATIVE (NEGATIVE); PH,URINE 5.5 (5.0-9.0); UGLUCOSE NEGATIVE (NEGATIVE)
[2017-03-28] MEDS: MAG SULF 2000 MG/WATER PREMIX 100 ML IV SCH ×2 (17:06→20:10)
--- NOTE | 2017-03-28 17:06 | NUR ---
MAGNESIUM IVPB ADMINISTERED ORDERED. PATIENT TOLERATED IT WELL. NO SIGNS OF SOB OR DISTRESS NOTED. PATIENT DENIES PAIN. SAFETY AND ISOLATION PRECAUTIONS IN PLACE, WILL CONTINUE TO MONITOR PATIENT.
--- NOTE | 2017-03-28 19:19 | NUR ---
REPORT GIVEN TO PRINT BINDING AND FINISHING WORKER NURSE AT BEDSIDE FOR CONTINUITY OF CARE. PATIENT IN STABLE CONDITION.
--- NOTE | 2017-03-28 19:20 | NUR ---
RECEIVED PT AAOX4, VITAL SIGNS STABLE, ON CONTINUOUS PULSE OX, SAT-100% ON 2L/NC, NO SIGNS OF RESP DISTRESS, MAG RIDER INFUSING AT THIS TIME, SAFETY MEASURES IN PLACE, REPOSITION Q2H AND OFFLOAD PRESSURE AREAS, ON CONTACT ISOLATION TO R/O C-DIFF, CALL LIGHT WITHIN REACH.
[2017-03-28] MEDS: BUDESONIDE 0.25 MG/2 ML NEBU INH SCH (19:26)
[2017-03-28 20:00] VITALS: BP 141/81
[2017-03-28] MEDS: methylPREDNISolone SS 125 MG/2 ML VIAL IVP SCH (20:05)
--- NOTE | 2017-03-28 20:45 | NUR ---
PT INCONTINENT OF URINE, PERINEAL CARE DONE, REPOSITION Q2H AND OFFLOAD PRESSURE AREAS, NIECE ROSIBEL CALLED AND UPDATED ON PT'S CONDITION, PHONE HANDED TO PT AND SHE TALKED WITH HER NIECE, ALL NEEDS ATTENDED.
[2017-03-28] MEDS ORDERED: FORMOTEROL FUMARATE IH SCH (21:00)
[2017-03-28] MEDS ORDERED: [UNRECOGNIZED DRUG - OTHER] IH SCH (21:00)
[2017-03-28] MEDS ORDERED: DALIRESP 500 MCG PO SCH (21:00)
[2017-03-28] MEDS ORDERED: BUDESONIDE IH SCH (21:00)
[2017-03-29] VITALS: BP 148/65
--- NOTE | 2017-03-29 01:59 | NUR ---
PT AWAKE REQUESTING FOR A BEDPAN, VOIDED FREELY WITH 300ML YELLOW URINE, NO EPISODE OF DIARRHEA NOTED SO FAR, PERINEAL CARE DONE, REPOSITION AND OFFLOAD PRESSURE AREAS, NO RESP DISTRESS NOTED, SAT-100%, MONITORED CLOSELY.
--- NOTE | 2017-03-29 03:50 | NUR ---
PT SLEEPING, EASILY AROUSABLE, VITAL SIGNS TAKEN, BP SLIGHTLY ELEVATED, ASYMPTOMATIC, NO SOB NOTED, MONITORED CLOSELY.
[2017-03-29 04:00] VITALS: BP 146/69
[2017-03-29] MEDS: methylPREDNISolone SS 125 MG/2 ML VIAL IVP SCH (04:51)
[2017-03-29] MEDS: ALBUTEROL 0.083% 2.5 MG/3 ML NEBU INH PRN ×3 (07:05→20:26)
[2017-03-29] MEDS: BUDESONIDE 0.25 MG/2 ML NEBU INH SCH ×2 (07:05→20:26)
--- NOTE | 2017-03-29 07:10 | NUR ---
RECEIVED PT ON 2L NC, SPO2 99%. BIPAP IS STANDBY BUT IS NOT INDICATED AT THIS TIME. PT IS NOT SOB AND NOT IN RESPIRATORY DISTRESS. WILL CONTINUE TO MONITOR.
[2017-03-29 07:18] LABS: BASOPHILS % (AUTO) 0.5 % (0.0-2.0); EOSINOPHILS % (AUTO) 0.1 % (0.0-4.0); HEMATOCRIT 27.5 % (36-48); HEMOGLOBIN 9.2 g/dL (12.0-16.0); LYMPHOCYTES # (AUTO) 0.4 K/uL (2.5-16.5); LYMPHOCYTES % (AUTO) 7.8 % (20.5-51.1); MEAN CORPUSCULAR HEMOGLOBIN 28 pg (27-31); MEAN CORPUSCULAR HGB CONC 33 g/dL (33-37); MEAN CORPUSCULAR VOLUME 83 fL (80-94); MONOCYTES # (AUTO) 0.3 K/uL (0.8-1.0); MONOCYTES % (AUTO) 5.5 % (1.7-9.3); NEUTROPHILS # (AUTO) 4.1 K/uL (1.8-7.7); NEUTROPHILS % (AUTO) 86.1 % (42.2-75.2); PLATELET COUNT (AUTO) 303 K/uL (140-450); RED BLOOD CELL COUNT(AUTO) 3.31 MIL/uL (4.20-5.40); RED CELL DISTRIBUTION WIDTH 15.1 % (11.6-13.7); WHITE BLOOD COUNT (AUTO) 4.8 K/uL (4.8-10.8)
--- NOTE | 2017-03-29 07:18 | NUR ---
PT AWAKE PRESENTLY GETTING BREATHING TX, NO SIGNS OF DISTRESS, REPORT GIVEN TO MARYAM NICHOLSON FOR CONTINUITY OF CARE.
--- NOTE | 2017-03-29 07:19 | NUR ---
RECEIVED REPORT FROM SPECIMEN TRANSPORTER RN. PATIENT IS AAOX4, ON 02 NASAL CANNULA 2LPM CONTINUOUS 02 MONITORING. RESPIRATORY EFFORT EVEN AND UNLABORED. NO SIGNS AND SYMPTOMS OF ACUTE DISTRESS NOTED AT THIS TIME. PATIENT HAS IV TO LEFT AC 20G SALINE LOCK. SITE IS CLEAN, DRY, PATENT AND INTACT. DISCUSSED PLAN OF CARE WITH PATIENT AND SHE VERBALIZED UNDERSTANDING. BED IN LOWEST POSITION, SIDE RAILS UP X2, CALL LIGHT WITHIN REACH. WILL CONTINUE TO MONITOR.
[2017-03-29 08:00] VITALS: BP 124/70
[2017-03-29 08:44] LABS: ANION GAP 11.2 (8-16); CHLORIDE 90 mmol/L (98-107); CREATININE 1.5 mg/dL (0.6-1.3); GLUCOSE 170 mg/dL (74-106); POTASSIUM 3.2 mmol/L (3.5-5.1); SODIUM SERUM 127 mmol/L (136-145); UREA NITROGEN, BLOOD 17 mg/dL (7-18)
[2017-03-29 08:51] LABS: MAGNESIUM 1.9 mg/dL (1.8-2.4); PHOSPHORUS 3.1 mg/dL (2.5-4.9)
[2017-03-29] MEDS ORDERED: DOCUSATE SODIUM 100 MG GELCAP PO SCH (09:00)
[2017-03-29] MEDS: ASPIRIN 325 MG TAB PO SCH (10:03)
[2017-03-29] MEDS: ATORVASTATIN 20 MG TAB PO SCH (10:03)
[2017-03-29] MEDS: AZITHROMYCIN 250 MG TAB PO SCH (10:03)
[2017-03-29] MEDS: NACL 0.9% 1,000 ML IV SCH (10:04)
[2017-03-29] MEDS: hydrALAZINE 25 MG TAB PO SCH ×3 (10:04→17:20)
--- NOTE | 2017-03-29 10:06 | NUR ---
PER MD NUEÑZ GAVE HALF OF ORDERED DOSE OF HYDRALAZINE. GAVE 50MG.
[2017-03-29 12:00] VITALS: BP 115/70
[2017-03-29] MEDS ORDERED: POTASSIUM CHLORIDE 40 MEQ, LIDOCAINE 1% 25 MG in NACL 0.9% 250 ML IV SCH (13:00)
[2017-03-29] MEDS: methylPREDNISolone SS 40 MG/ML VIAL IVP SCH ×2 (13:49→20:49)
--- NOTE | 2017-03-29 14:10 | NUR ---
CM NOTE INITIAL REVIEW FOR CRITERIA DONE
[2017-03-29 16:00] VITALS: BP 162/76
--- NOTE | 2017-03-29 16:04 | NUR ---
03/29/2017 RD INITIAL ASSESSMENT COMPLETED PLEASE REFER TO NUTRITION ASSESSMENT UNDER CARE ACTIVITY FOR ESTIMATED NUTRITIONAL NEEDS. CONTINUE 2 GM NA, SOFT DIET TOLERATED RD/NURSING STAFF TO CONTINUE TO ENCOURAGE IMPROVED PO INTAKE RD TO FOLLOW-UP IN 2-3 DAYS PATIENT IS HIGH RISK. ANAYELI ZAVALA, RD
[2017-03-29] MEDS: IPRATROPIUM 0.02% 0.5 MG/2.5 ML NEBU INH PRN (17:34)
--- NOTE | 2017-03-29 19:29 | NUR ---
ENDORSED PATIENT TO MONTESSORI TODDLER TEACHER RN FOR CONTINUITY OF CARE. PATIENT IN STABLE CONDITION.
--- NOTE | 2017-03-29 19:30 | NUR ---
RECEIVED HANDOFF REPORT FROM AM RN. PATIENT A&OX4. PATIENT DENIES PAIN. PATIENT DENIES SOB. IV SITE PATENT AND INTACT. PATIENT HAS 2L O2 NC PATENT AND INTACT. NO SIGNS OR SYMPTOMS OF ACUTE DISTRESS NOTED. CALL LIGHT WITHIN REACH. SAFETY MEASURES ENSURED. WILL CONTINUE TO MONITOR.
[2017-03-29 20:00] VITALS: BP 139/81
[2017-03-30] VITALS: BP 167/83
[2017-03-30] MEDS: NACL 0.9% 1,000 ML IV SCH (02:25)
[2017-03-30 04:00] VITALS: BP 176/83
[2017-03-30] MEDS: hydrALAZINE 25 MG TAB PO SCH ×2 (04:39→12:33)
--- NOTE | 2017-03-30 04:43 | NUR ---
PER MD GIVE HYDRALAZINE D/T HIGH BP 176/83. PATIENT DENIES PAIN. NO SIGNS OR SYMPTOMS OF ACUTE DISTRESS NOTED. CALL LIGHT WITHIN REACH. WILL CONTINUE TO MONITOR.
[2017-03-30] MEDS: methylPREDNISolone SS 40 MG/ML VIAL IVP SCH ×2 (04:44→12:32)
[2017-03-30] MEDS: BUDESONIDE 0.25 MG/2 ML NEBU INH SCH (06:28)
[2017-03-30 07:19] LABS: FOLIC ACID 11.8 ng/mL (>3.0)
--- NOTE | 2017-03-30 07:37 | NUR ---
ENDORSED PLAN OF CARE TO AM RN. PATIENT IN STABLE CONDITION.
[2017-03-30] MEDS ORDERED: POTASSIUM CHLORIDE 40 MEQ, LIDOCAINE 1% 25 MG in NACL 0.9% 250 ML IV ONE (07:45)
[2017-03-30 08:00] VITALS: BP 176/86
--- NOTE | 2017-03-30 08:04 | NUR ---
REPORT RECEIVED FROM PROCESS PUMPER NURSE AT BEDSIDE FOR CONTINUITY OF CARE. PATIENT AWAKE IN BED. ALERT AND ABLE TO MAKE NEEDS KNOWN. NO ACUTE DISTRESS NOTED. PT WITH IV TO LAC 20G WITH NS @60ML/HR. DR TINOCO IN TO SEE PT. CALL LIGHT WITHIN REACH. WILL CONT TO MONITOR PT.
[2017-03-30 09:00] VITALS: BP 127/79
[2017-03-30] MEDS ORDERED: LORATADINE 10 MG TAB PO SCH (09:00)
[2017-03-30] MEDS ORDERED: FAMOTIDINE 20 MG TAB PO SCH (09:00)
[2017-03-30] MEDS ORDERED: MONTELUKAST SODIUM 10 MG TAB PO SCH (09:00)
[2017-03-30] MEDS: ATORVASTATIN 20 MG TAB PO SCH (09:13)
[2017-03-30] MEDS: ASPIRIN 325 MG TAB PO SCH (09:13)
[2017-03-30] MEDS: AZITHROMYCIN 250 MG TAB PO SCH (09:13)
--- NOTE | 2017-03-30 09:14 | NUR ---
ADMINISTERED SCHEDULED MEDICATIONS ORDERED. PATIENT ALERT AND ABLE TO VERBALIZE NEEDS. NO ACUTE DISTRESS NOTED. DENIES PAIN.TOLERATED WELL. PATIENT IN BED ASSISTED TO USE BED MAYO VOIDED X1. GOOD PERICARE PROVIDED. CALL LIGHT WITHIN REACH. BED IN LOW POSITION. WILL CONT TO MONITOR PT.
--- NOTE | 2017-03-30 10:13 | NUR ---
ORDER FOR DC WITH HH PT. CM TO INFORM REGARDING COMPANY. PT IN BED RESTING. NO ACUTE DISTRESS NOTED. CALL LIGHT WITHIN REACH. BED IN LOW POSITION. WILL CONT TO MONITOR PT.
[2017-03-30] MEDS ORDERED: AZIT250T11 PO (10:16)
[2017-03-30] MEDS ORDERED: MONT10TA35 PO (10:16)
[2017-03-30] MEDS ORDERED: ALBU0.0912 IH (10:17)
[2017-03-30] MEDS ORDERED: LACT1.4C PO (10:25)
[2017-03-30 10:48] LABS: BASOPHILS % (AUTO) 0.1 % (0.0-2.0); EOSINOPHILS % (AUTO) 0.2 % (0.0-4.0); HEMATOCRIT 30.8 % (36-48); HEMOGLOBIN 10.2 g/dL (12.0-16.0); LYMPHOCYTES # (AUTO) 0.3 K/uL (2.5-16.5); LYMPHOCYTES % (AUTO) 4.4 % (20.5-51.1); MEAN CORPUSCULAR HEMOGLOBIN 28 pg (27-31); MEAN CORPUSCULAR HGB CONC 33 g/dL (33-37); MEAN CORPUSCULAR VOLUME 83 fL (80-94); MONOCYTES # (AUTO) 0.6 K/uL (0.8-1.0); MONOCYTES % (AUTO) 7.9 % (1.7-9.3); NEUTROPHILS # (AUTO) 6.9 K/uL (1.8-7.7); NEUTROPHILS % (AUTO) 87.4 % (42.2-75.2); PLATELET COUNT (AUTO) 369 K/uL (140-450); RED BLOOD CELL COUNT(AUTO) 3.69 MIL/uL (4.20-5.40); RED CELL DISTRIBUTION WIDTH 15.6 % (11.6-13.7); WHITE BLOOD COUNT (AUTO) 7.8 K/uL (4.8-10.8)
[2017-03-30 11:05] LABS: ANION GAP 12.2 (8-16); CARBON DIOXIDE 27.7 mmol/L (21-32); CHLORIDE 92 mmol/L (98-107); CREATININE 1.4 mg/dL (0.6-1.3); GLUCOSE 180 mg/dL (74-106); POTASSIUM 3.9 mmol/L (3.5-5.1); SODIUM SERUM 128 mmol/L (136-145); UREA NITROGEN, BLOOD 29 mg/dL (7-18)
--- NOTE | 2017-03-30 11:50 | NUR ---
Social Service Note: I faxed inquiry to [facility], phone number , fax . Per Kim from [facility], they will send a nurse to patient's home post discharge (1 day after discharge date). Addendum: 03/30/17 at 1153 by Clarissa LESLIE I verified patient's home address and phone number listed on face sheet with patient.
[2017-03-30 12:00] VITALS: BP 167/77
--- NOTE | 2017-03-30 12:33 | NUR ---
ADMINISTERED SOLUMEDROL IVP SLOWLY FOLLOWED WITH NS FLUSH. THEN ADMINISTERED CEFTRIAXONE ORDERED IVPB. PT TOLERATED WELL. PT ALERT AND ABLE TO MAKE NEEDS KNOWN. IN BED WATCHING TV. BED IN LOW POSITION. CALL LIGHT WITHIN REACH. WILL CONT TO MONITOR PT.
--- NOTE | 2017-03-30 13:20 | NUR ---
NOTIFIED DR TINOCO THAT PATIENT ALREADY HAD HOME HEALTH SERVICES SET UP WITH [facility] AND SHIRA GLEASON WISHED TO CONT WITH [facility]. AWARE AND IN AGREEMENT.
--- NOTE | 2017-03-30 14:00 | NUR ---
SPOKE TO ROSIBEL REGARDING PATIENT DC ORDER. 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 PT ALERT AND ABLE TO VERBALIZE NEEDS, NO ACUTE DISTRESS NOTED. BED IN LOW POSITION. CALL LIGHT WITHIN REACH. WILL CONT TO MONITOR PT.
--- NOTE | 2017-03-30 16:13 | NUR ---
ROSIBEL (COUSIN) ARRIVED TO [place] PATIENT HOME. EXPLAINED DISCHARGE PAPERWORK. GAVE RX SCRIPTS AND ALL DISCHARGE INSTRUCTIONS TO ROSIBEL. INFORMED FOR HER TO SET UP APPT WITH DR BAILEY IN 3 DAYS. ROSIBEL VERBALIZED UNDERSTANDING AND AGREEMENT. MEDICATION REGIME EXPLAINED TO ROSIBEL AND SHE VERBALIZED UNDERSTANDING AND AGREEMENT. ANSWERED OF PATIENT/ROSIBEL'S QUESTIONS REGARDING DISCHARGE. PT WITH ALL PERSONAL POSSESSIONS WITH HER UPON DISCHARGE. DISCHARGE INSTRUCTIONS PROVIDED IN PREFERRED LANGUAGE OF [place]. PT IV REMOVED WITH MINIMAL BLOOD AND LUMEN COMPLETELY INTACT. ID BANDS REMOVED. AWAITING FOR PATIENT TO GET DRESSED. WILL CONTINUE TO MONITOR.
--- NOTE | 2017-03-30 16:20 | NUR ---
PHYSICAL THERAPY CO-SIGN The Physical Therapy Progress Notes documented by Steam Engineer have been reviewed. I CONCUR W/FLIGHT TOWER DISPATCHER NOTE Reviewed/Co-Signed by: Anastasia Dye PT Documentation Done by: IZZY RENDON FLIGHT TOWER DISPATCHER Addendum: 04/01/17 at 0729 by Anastasia Dye PT Amended: Links added.
--- NOTE | 2017-03-30 16:25 | NUR ---
PT ESCORTED OUT TO FRONT LOBBY VIA WC. GLEASON WITH PRIVATE VEHICLE WAITING. GOT INTO CAR WITHOUT DIFFICULTIES. PT ALERT AND ABLE TO VERBALIZE NEEDS. NO ACUTE DISTRESS NOTED. PT STABLE UPON DISCHARGE.
--- NOTE | 2017-04-01 12:23 | NUR ---
RECEIVED VM FROM [facility] CHARGE NURSE THAT PT WAS BEING DISCHARGED TO HOME ON 03/30 AND PT HAS AN ORDER TO RESUME SERVICES AND [facility] WAS CONTACTED. PT HAS INFORMED NURSING THAT SHE IS CURRENTLY ON SERVICE WITH [facility]. 0845 CALL PLACED TO [facility] AND SPOKE WITH GRETTA AND INFORMED HER THAT PT ALREADY HAS A HH AGENCY AND TO CANCEL THE REFERRAL. CALL PLACED TO [facility] 1200 AND SPOKE WITH CARLEE WHO VERIFIED THAT PT IS CURRENTLY ON THEIR SERVICES AND INFORMATION WAS FAXED PER REQUEST TO [phone]
== END 2017-03-30 16:25 | disposition home or self-care (01) | DRG 682 ==
LOC: MED 01:55 → MTU 07:37
PROVIDERS: ADMIT Family Medicine; ATTEND Family Medicine
PROC: 5A09357 Assistance with Respiratory Ventilation, Less than 24 Consecutive Hours, Continuous Positive Airway Pressure (ICD-10-PCS; principal; 2017-03-28)
DX: N17.0 Acute kidney failure with tubular necrosis (principal); J96.21 Acute and chronic respiratory failure with hypoxia; E44.0 Moderate protein-calorie malnutrition; E83.42 Hypomagnesemia; I07.1 Rheumatic tricuspid insufficiency; E11.22 Type 2 diabetes mellitus with diabetic chronic kidney disease; J44.1 Chronic obstructive pulmonary disease with (acute) exacerbation; J45.901 Unspecified asthma with (acute) exacerbation; E87.1 Hypo-osmolality and hyponatremia; I12.0 Hypertensive chronic kidney disease with stage 5 chronic kidney disease or end stage renal disease; N18.6 End stage renal disease; E83.52 Hypercalcemia; I25.10 Atherosclerotic heart disease of native coronary artery without angina pectoris; E86.0 Dehydration; E87.6 Hypokalemia; D63.8 Anemia in other chronic diseases classified elsewhere; E78.5 Hyperlipidemia, unspecified; R00.0 Tachycardia, unspecified; F29 Unspecified psychosis not due to a substance or known physiological condition; F39 Unspecified mood [affective] disorder; K74.60 Unspecified cirrhosis of liver; G47.00 Insomnia, unspecified; E87.8 Other disorders of electrolyte and fluid balance, not elsewhere classified; I34.0 Nonrheumatic mitral (valve) insufficiency; Z68.24 Body mass index [BMI] 24.0-24.9, adult
CPT/HCPCS: 36415; 36600; 70450; 71045; 73200; 80048; 80053; 81003; 82150; 82607; 82728; 82746; 82803; 82948; 83036; 83540; 83690; 83735; 83880; 84100; 84439; 84443; 84479; 84484; 85025; 85045; 85610; 87081; 87086; 93005; 94640; 94660; 96374; 97110; 97116; 97530; 99285; J0696; J1940; J2001; J2920; J2930; J3475; J3480; J7030; J7060; J7613; J7620; J7626; J7644; Q0092

== ENCOUNTER 2018-05-25 17:56 | Emergency (ER) | payer OTHER, MEDICAID ==
[~2018-05-25] VITALS: Ht 170.2 cm; Wt 54.4 kg
[~2018-05-25 17:56] MED LIST changes: +ALBU0.0912 IH; +AZIT250T11 PO; +LACT1.4C PO; +MONT10TA35 PO
[2018-05-25 18:08] VITALS: BP 151/77
--- NOTE | 2018-05-25 18:39 | NUR ---
Patient taken to ER bed 7 via w/c
--- NOTE | 2018-05-25 18:50 | NUR ---
BIB SELF. AAO X4. C/O RIGHT SWOLLEN FACE SINCE EARLIER THIS MORNING, DENIES TRAUMA OR INJURY. PT [id number]. PT STATES DIFFICULTY SWALLOWING. AFEBRILE. DENIES N/V/D. NO SOB NOTED. HOB UP. BED SIDE RAILS UP X1. ON LOW BED POSITION, LOCKED. ER MADE AWARE OF PT STATUS.
--- NOTE | 2018-05-25 19:15 | NUR ---
Pt report given to MARYAM Fagan. Transfer of care at this time.
[2018-05-25] MEDS ORDERED: KETOROLAC 30 MG/ML VIAL IM ONE (19:50)
--- NOTE | 2018-05-25 20:10 | NUR ---
Patient discharged with v/s stable. Patient acting appropriatly, states 0/10 pain at this time, states she is ready to go home. Written and verbal after care instructions given and explained. Patient alert, oriented and verbalized understanding of instructions. Wheel Chair Assisted with by caregiver. All questions addressed prior to discharge. ID band removed. Patient advised to follow up with PMD. Rx of Augmentin, Naprosyn, and Grimes given. Patient educated on indication of medication including possible reaction and side effects. Opportunity to ask questions provided and answered.
[2018-05-25 20:13] VITALS: BP 167/92
== END 2018-05-25 20:10 | disposition home or self-care (01) ==
LOC: MED 17:56
DX: K11.20 Sialoadenitis, unspecified (principal); J44.9 Chronic obstructive pulmonary disease, unspecified; I10 Essential (primary) hypertension; Z79.899 Other long term (current) drug therapy
CPT/HCPCS: 96372; 99283; J1885

== ENCOUNTER 2018-10-12 03:57 | Emergency (ER) | payer OTHER, MEDICAID ==
[~2018-10-12] VITALS: Ht 170.2 cm; Wt 56.7 kg
[2018-10-12 03:57] VITALS: BP 169/89
--- NOTE | 2018-10-12 03:57 | NUR ---
TO BED # 10 VIA WHEELCHAIR
--- NOTE | 2018-10-12 04:10 | NUR ---
72 YO F BIB FAMILY S/P FALL. LACERATION TO BACK OF HER HEAD. PT STATES SHE HIT HER HEAD APPROX 30 MINUTES AGO WHILE TRYING TO GET OUT OF BED WITH HER WALKER. FAMILY STATES WAS FOUND LYING ON BACK ON [place] FLOOR. OCCIPITAL REGION COVERED IN BLOOD; NO ACTIVE BLEEDING AT THIS TIME. PT DENIES LOC, N/V. FAMILY DENIES CHANGE IN BEHAVIOR. PT SPEAKING AND BEHAVING AT BASELINE. -- PT AWAKE, ALERT, SPEAKING WITH CLEAR SPEECH. ANSWERING QUESTIONS APPROPRIATELY. BEHAVIOR AGE APPROPRIATE. -- SKIN PINK, WARM, DRY. BREATHING EVEN, UNLABORED. PMH-- COPD, HTN
--- NOTE | 2018-10-12 04:18 | NUR ---
[facility] HERE FOR TRANSPORT TO [facility] FOR HIGHER LEVEL OF CARE.
[2018-10-12 04:25] VITALS: BP 169/89
--- NOTE | 2018-10-12 04:25 | NUR ---
Patient to be transferred to [facility]. Is being transferred due to higher level of care. Receiving facility has accepting physician and available space. ER physician has signed transfer form. Patient or responsible alliance party has agreed to transfer and signed form. Patient belongings inventoried and will be sent with patient. Copy of nursing notes, lab reports, EKG, Physicians Orders and X-rays to be sent with patient. Report called to Dr. Rosales at receiving facility by Dr. Harris. [facility] ambulance service has been called for transfer. Pt transfered to [facility]. Pt left facility at 0425.
== END 2018-10-12 04:25 | disposition short-term general hospital (02) ==
LOC: MED 03:57
DX: S01.91XA Laceration without foreign body of unspecified part of head, initial encounter (principal); J44.9 Chronic obstructive pulmonary disease, unspecified; I10 Essential (primary) hypertension; Z79.899 Other long term (current) drug therapy; Z79.51 Long term (current) use of inhaled steroids; Z79.2 Long term (current) use of antibiotics; W01.198A Fall on same level from slipping, tripping and stumbling with subsequent striking against other object, initial encounter; Y92.009 Unspecified place in unspecified non-institutional (private) residence as the place of occurrence of the external cause; Y93.89 Activity, other specified; Y99.8 Other external cause status
CPT/HCPCS: 99285

== ENCOUNTER 2019-01-13 15:44 | Inpatient (IN) | payer OTHER, MEDICAID ==
[~2019-01-13] VITALS: Ht 167.6 cm; Wt 54.4 kg
[2019-01-13 16:01] VITALS: BP 163/103
[2019-01-13] MEDS ORDERED: ASCO500T45 PO (16:20)
[2019-01-13] MEDS ORDERED: CARV6.25 PO (16:20)
[2019-01-13] MEDS ORDERED: POTA20TE15 PO (16:20)
[2019-01-13] MEDS ORDERED: AMLO5TAB PO (16:20)
[2019-01-13] MEDS ORDERED: ASPI-1718 PO (16:20)
[2019-01-13] MEDS ORDERED: ROSU5TAB PO (16:20)
[2019-01-13] MEDS ORDERED: ROFL250T PO (16:20)
[2019-01-13] MEDS ORDERED: MEGE40TA4 PO (16:20)
[2019-01-13] MEDS ORDERED: FURO-572 PO (16:20)
--- NOTE | 2019-01-13 16:27 | NUR ---
FLU SWAB DONE.
--- NOTE | 2019-01-13 16:29 | NUR ---
INFLUENZA SWAB COLLECTED AND HANDED TO [facility]
[2019-01-13 16:34] LABS: APPEARANCE,URINE CLEAR (CLEAR); BILIRUBIN,URINE NEGATIVE (NEGATIVE); BLOOD, URINE NEGATIVE (NEGATIVE); COLOR,URINE YELLOW (YELLOW); LEUKOCYTE ESTERASE ,URINE NEGATIVE (NEGATIVE); NITRITE, URINE NEGATIVE (NEGATIVE); PH,URINE 6.5 (5.0-9.0); UGLUCOSE NEGATIVE (NEGATIVE)
[2019-01-13 16:35] LABS: BASOPHILS % (AUTO) 0.6 % (0.0-2.0); EOSINOPHILS # (AUTO) 0.1 K/uL (0-0.4); EOSINOPHILS % (AUTO) 1.3 % (0.0-4.0); LYMPHOCYTES # (AUTO) 1.1 K/uL (2.5-16.5); LYMPHOCYTES % (AUTO) 14.8 % (20.5-51.1); MEAN CORPUSCULAR HEMOGLOBIN 29 pg (27-31); MEAN CORPUSCULAR HGB CONC 32 g/dL (33-37); MEAN CORPUSCULAR VOLUME 88.7 fL (80-94); MONOCYTES # (AUTO) 0.8 K/uL (0.8-1.0); NEUTROPHILS # (AUTO) 5.6 K/uL (1.8-7.7); NEUTROPHILS % (AUTO) 72.3 % (42.2-75.2); PLATELET COUNT (AUTO) 227 K/uL (140-450); RED BLOOD CELL COUNT(AUTO) 3.84 MIL/uL (4.20-5.40); RED CELL DISTRIBUTION WIDTH 17.5 % (11.6-13.7); WHITE BLOOD COUNT (AUTO) 7.7 K/uL (4.8-10.8)
--- NOTE | 2019-01-13 16:47 | NUR ---
73 Y/O F C/O SHORTNESS OF BREATH AND ELEVATED BLOOD PRESSURE X4 DAYS. PATIENT DENIES PAIN. MEDHX: COPD, HTN, HYPERLIPIDEMIA NKA
--- NOTE | 2019-01-13 16:48 | NUR ---
PT AMBULATED TO ER BED 02
[2019-01-13 16:49] LABS: RBC,URINE 0-5 /HPF (0-5); WBC,URINE 0-5 /HPF (0-5)
[2019-01-13 16:51] LABS: HYALINE CASTS, URINE 0-10 /LPF (None Seen)
[2019-01-13 16:59] LABS: CARBON DIOXIDE 24.4 mmol/L (21-32); CREATININE 1.8 mg/dL (0.6-1.3); GLUCOSE 140 mg/dL (74-106)
[2019-01-13 17:11] LABS: ALBUMIN 2.9 g/dL (3.4-5.0); ANION GAP 15.5 (8-16); ASPARTATE AMINOTRANSFERASE 28 U/L (15-37); CHLORIDE 109 mmol/L (98-107); POTASSIUM 3.9 mmol/L (3.5-5.1); SODIUM SERUM 145 mmol/L (136-145); TOTAL BILIRUBIN 0.3 mg/dL (0.0-1.0); UREA NITROGEN, BLOOD 33 mg/dL (7-18)
--- NOTE | 2019-01-13 17:40 | NUR ---
Patient being evaluated by DR LUNA at bedside.
[2019-01-13] MEDS ORDERED: FUROSEMIDE 40 MG/4 ML VIAL IVP ONE (17:50)
[2019-01-13] MEDS ORDERED: ASPIRIN 325 MG TABEC PO SCH (17:50)
[2019-01-13] MEDS ORDERED: LORazepam 2 MG/ML VIAL IM/IVP PRN (18:25)
[2019-01-13] MEDS ORDERED: ACETAMINOPHEN 325 MG TAB PO PRN (18:25)
[2019-01-13] MEDS ORDERED: HYDROcodone/APAP 5/325 MG 1 TAB TAB PO PRN (18:25)
[2019-01-13] MEDS ORDERED: ZOLPIDEM 5 MG TAB PO PRN (18:25)
[2019-01-13] MEDS ORDERED: ONDANSETRON 4 MG/2 ML VIAL IM/IVP PRN (18:25)
[2019-01-13] MEDS ORDERED: DOCUSATE SODIUM 100 MG GELCAP PO PRN (18:25)
[2019-01-13] MEDS ORDERED: MORPHINE SULFATE 2 MG/ML SYR IVP PRN (18:25)
--- NOTE | 2019-01-13 18:35 | NUR ---
PATIENT BP 172/96, DENIES ESPAÑA OR DIZINESS AT THIS TIME. MD NOTIFIED, ORDERED BP MEDICATION TO BE GIVEN.
[2019-01-13] MEDS ORDERED: hydrALAZINE 25 MG TAB PO ONE (18:40)
[2019-01-13] MEDS ORDERED: CARVEDILOL 6.25 MG TAB PO ONE (18:40)
--- NOTE | 2019-01-13 18:53 | NUR ---
CALLED PHARMACY FOR HYDROLAZINE.
[2019-01-13 19:20] VITALS: BP 158/80
--- NOTE | 2019-01-13 19:20 | NUR ---
ADMITTED A 73F FROM ER. CAME BY DARCIE DUE TO SOB . AWAKE,ALERT AND ORIENTED X4. ON TELE MONITOR. WITH O22L/NC. NO RESPIRATORY DISTRESS NOTED. WITH MILD WEAKNESS ON BLE. HL ON THE LEFT AC G#20. CLEAR AND PATENT. SKIN INTACT. PLAN OF CARE DISCUSSED AND VERBALIZED UNDERSTANDING. BED ON LOWEST POSITION. FREQ ROUNDS NEEDED. SIDE RAILS UP X2. CALL LIGHT PLACED WITHIN EASY REACH. ORIENTED TO HOSPITAL ROUTINES . WILL FOLLOW UP ADMIT ORDERS. WILL CONTINUE TO MONITOR.
[2019-01-13 19:26] LABS: PROTHROMBIN TIME 10.2 secs (10.8-13.4)
--- NOTE | 2019-01-13 19:27 | NUR ---
Patient will be admitted to care of DR. GOODMAN. Admited to MED SURG TELE. Will go to room 108A. Belongings list completed. Report to MARYAM RODRIGUEZ.
[2019-01-13 20:05] LABS: MAGNESIUM 2.1 mg/dL (1.8-2.4); PHOSPHORUS 2.7 mg/dL (2.5-4.9); THYROID STIMULATING HORMONE 3.93 uIU/mL (0.34-3.74)
[2019-01-13] MEDS ORDERED: ALBUTEROL SULFATE/IPRATROPIU 3 ML SOL IH PRN (20:35)
[2019-01-13] MEDS: NACL 0.9% 1,000 ML IV SCH (20:57)
--- NOTE | 2019-01-13 21:00 | NUR ---
VOIDED ON BEDPAN . NO DISCOMFORT NOTED.
[2019-01-13] MEDS ORDERED: NON-FORMULARY ITEM (Levalbuterol HCl* (Xopenex*) 0.63 MG) INH PRN (21:50)
--- NOTE | 2019-01-13 22:55 | NUR ---
CAO CATHETER INSERTED PER MD ORDER. PROCEDURE DONE TOLERATED BY PT.
[2019-01-14] VITALS: BP 159/88
--- NOTE | 2019-01-14 01:00 | NUR ---
MADE ROUNDS. PT ASLEEP. NO S/S FO ANY DISTRESS NOTED.
--- NOTE | 2019-01-14 02:27 | NUR ---
PT HAS EPISODE OF VTACH 12-14 SEC APPROXIMATELY. CHECKED ON PT. ASLEEP. ASKED IF PT IS OK. SHE SAID SHE IS FINE,NO PAIN NOTED. ASYMPTOMATIC. DR. COLUNGA,RESIDENT ON DUTY MADE AWARE.
--- NOTE | 2019-01-14 03:40 | NUR ---
SCD MACHINE APPLIED TO BOTH LOWER LEG. PT MADE AWARE OF THE BENEFIT FROM THE MACHINE. VERBALIZED UNDERSTANDING.
[2019-01-14 04:15] VITALS: BP 153/61
--- NOTE | 2019-01-14 05:00 | NUR ---
PT ASLEEP. NO S/S OF ANY DISTRESS NOTED.
[2019-01-14] MEDS: ALBUTEROL SULFATE/IPRATROPIU 3 ML SOL IH SCH ×3 (06:00→18:42)
[2019-01-14 06:20] LABS: BASOPHILS # (AUTO) 0.1 K/uL (0.00-0.22); BASOPHILS % (AUTO) 0.9 % (0.0-2.0); EOSINOPHILS # (AUTO) 0.1 K/uL (0-0.4); EOSINOPHILS % (AUTO) 1.9 % (0.0-4.0); HEMOGLOBIN 10.2 g/dL (12.0-16.0); LYMPHOCYTES # (AUTO) 0.8 K/uL (2.5-16.5); LYMPHOCYTES % (AUTO) 13.7 % (20.5-51.1); MEAN CORPUSCULAR HEMOGLOBIN 29 pg (27-31); MEAN CORPUSCULAR HGB CONC 33 g/dL (33-37); MEAN CORPUSCULAR VOLUME 88.2 fL (80-94); MONOCYTES # (AUTO) 0.6 K/uL (0.8-1.0); MONOCYTES % (AUTO) 9.6 % (1.7-9.3); NEUTROPHILS # (AUTO) 4.5 K/uL (1.8-7.7); NEUTROPHILS % (AUTO) 73.9 % (42.2-75.2); PLATELET COUNT (AUTO) 195 K/uL (140-450); RED BLOOD CELL COUNT(AUTO) 3.51 MIL/uL (4.20-5.40); RED CELL DISTRIBUTION WIDTH 17.5 % (11.6-13.7); WHITE BLOOD COUNT (AUTO) 6.1 K/uL (4.8-10.8)
[2019-01-14 06:25] LABS: ANION GAP 13.6 (8-16); CARBON DIOXIDE 26.2 mmol/L (21-32); CHLORIDE 109 mmol/L (98-107); CREATININE 1.8 mg/dL (0.6-1.3); GLUCOSE 87 mg/dL (74-106); POTASSIUM 3.8 mmol/L (3.5-5.1); SODIUM SERUM 145 mmol/L (136-145); UREA NITROGEN, BLOOD 32 mg/dL (7-18)
--- NOTE | 2019-01-14 06:29 | NUR ---
DR. BREWSTER,RESIDENT CAME AND CHECKED ON PT. KNEE IMMOBILIZER TO SWITCH TO LT KNEE . PAIN MED GIVEN PRIOR TO MOVING BOTH LEGS. Addendum: 01/14/19 at 0644 by Tika Castillo RN CANCEL ABOVE NOTES. CAREGIVER MISTAKE.
[2019-01-14 06:34] LABS: CHOL/HDL RATIO 3.9 (1-4.5); PHOSPHORUS 2.9 mg/dL (2.5-4.9)
--- NOTE | 2019-01-14 06:38 | NUR ---
WILL ENDORSE PT TO MARYAM LOJA CHARGE FOR CONTINUITY O F CARE.
--- NOTE | 2019-01-14 07:20 | NUR ---
RECIEVED PT FROM OIL FIELD EQUIPMENT MECHANIC SUPERVISOR NURSE. PT IS AWAKE AND ALERT, NO S/S OF ACUTE DISTRESS, NO SOB. NO C/O PAIN. SKIN INTACT. ON ROOM AIR. IV SITE L AC 20 G, INFUSING NS 10 ML/HR. FALL PRECAUTIONS IN PLACE. CALL LIGHT WITHIN REACH.
[2019-01-14 08:00] VITALS: BP 121/88
--- NOTE | 2019-01-14 08:18 | NUR ---
PATIENT HAS BEEN SCREENED AND CATEGORIZED MODERATE NUTRITION RISK. PATIENT WILL BE SEEN WITHIN 3-5 DAYS OF ADMISSION. 01/16/19 01/18/[address]
[2019-01-14] MEDS ORDERED: BUDESONIDE IH SCH (09:00)
[2019-01-14] MEDS ORDERED: [UNRECOGNIZED DRUG - OTHER] IH SCH (09:00)
[2019-01-14] MEDS ORDERED: FORMOTEROL FUMARATE IH SCH (09:00)
[2019-01-14] MEDS ORDERED: ROFLUMILAST 500 MCG PO SCH (09:00)
[2019-01-14] MEDS ORDERED: FUROSEMIDE 20 MG/2 ML VIAL IVP SCH ×2 (09:00→18:35)
[2019-01-14] MEDS ORDERED: NON-FORMULARY ITEM (Rosuvastatin Calcium* (Crestor*) 1 TAB) PO SCH (09:00)
[2019-01-14] MEDS: amLODIPine 5 MG TAB PO SCH (10:26)
[2019-01-14] MEDS: ASPIRIN 81 MG TAB.CHEW PO SCH (10:26)
[2019-01-14] MEDS: ASCORBIC ACID 500 MG TAB PO SCH ×2 (10:26→20:31)
[2019-01-14] MEDS: FERROUS SULFATE 325 MG TABEC PO SCH (10:27)
[2019-01-14] MEDS: CARVEDILOL 6.25 MG TAB PO SCH ×2 (10:27→20:31)
[2019-01-14] MEDS: MEGESTROL 40 MG TAB PO SCH ×2 (10:27→20:31)
--- NOTE | 2019-01-14 10:36 | NUR ---
AM MEDS ADMINISTERED, PT TOLERATED WELL.
--- NOTE | 2019-01-14 10:36 | NUR ---
Public Service Representative Note: Basic Screen: Yes High Risk DC Screen Yes Name: ROSIBEL VIDAL Home Relationship: COUSIN Pre-Admission Living Arrangements: Lives with Other Other: LIVES WITH COUSIN, ROSIBEL VIDAL Prior ADL Needs Assistance Current Home Health Name/Tel: N/A Current DME/02 Name/Tel: WHEELCHAIR, OXYGEN Current Hospice Name/Tel: N/A Current Dialysis Name/Tel: N/A Healthcare Decision Maker: Patient Advance Directive No - REFUSED Physician Orders for Life Sustaining Treatment Form No Patient/Family Have Educational Needs No Information Taught: Advance Directive Person Taught: Patient Teaching Tools: Verbal Factors Affecting Learning: Hearing Deficit Participation Level: Active Evaluation: Verbalizes Understanding Needs Additional Education: No Discipline: Case Mgt/Social Svcs Tentative Discharge Plan/Destination: No Needs Identified Will require assistance post discharge: No Referred to Periodicals Clerk: No Tentative Discharge Plan Summary: Patient is a 73-year-old female admitted for CHF exacerbation. Patient has PMHX of COPD, HTN, hyperlipidemia, and hard of hearing. Patient was admitted from home. SW verified demographics with patient. Patient stated she receives care from a caregiver 7-8 hours everyday who assists with ADLs. Patient reports no mental health history and no substance abuse history. Patient's plan after discharge is to return home. No further needs identified. Signature: MARELY Gavin Date: Jan 14, 2019 Time: 10:35
[2019-01-14 12:00] VITALS: BP 108/72
--- NOTE | 2019-01-14 12:05 | NUR ---
DISCHARGE PLANNIN73 YEAR OLD FEMALE FROM HOME, WHO CAME IN DUE TO SOB X3-4 MONTHS. PAST MEDICAL HISTORY OF COPD, HTN, HYPERLIPIDEMIA AND HARD OF HEARING. INITIAL DIAGNOSIS OF CHF EXACERBATION AND ELEVATED TROPONIN. CURRENT LABS INCLUDE WBC 6.1, H/H 10.2/31.0, NA/K 145/3.8, BUN/CREA 32/1.8 AND TROP 0.245-0.223. CARDIO CONSULT WITH DR. MITCHELL FOR ELEVATED TROPONIN. Addendum: 01/14/19 at 1320 by Monica Rincon CM CONT: ON LASIX IV. CXR ON ADMISSION SHOWED CARDIOMEGALY WITH MILD PULMONARY VASCULAR CONGESTION AND INTERSTITIAL EDEMA. SUPERIMPOSED INFILTRATE NOT EXCLUDED. DECREASED LUNG VOLUMES WITH MILD BIBASILAR ATELECTASIS. SUSPECTED TRACE BILATERAL PLEURAL EFFUSION. DC PLAN PENDING ON PATIENT'S RESPONSE TO TREATMENT.
--- NOTE | 2019-01-14 12:53 | NUR ---
PT RESTING COMFORTABLY IN BED WATCHING TC, NO S/S OF DISTRESS, NO SOB. ON 2L O2 NC. VS STABLE.
--- NOTE | 2019-01-14 13:45 | NUR ---
PT IS UNABLE TO PREFORM IS AT THIS TIME WILL ENDORSE TO NOC SHIFT
--- NOTE | 2019-01-14 15:06 | NUR ---
PT SEEN AT BEDSIDE BY DR GOLDMAN
[2019-01-14 16:00] VITALS: BP 137/56
[2019-01-14] MEDS: hydrALAZINE 25 MG TAB PO SCH (16:56)
--- NOTE | 2019-01-14 17:01 | NUR ---
PT IS RESTING COMFORTABLY IN BED, VISITING WITH A RELATIVE, ON 2L O2 NC, NO S/S OF DISTRESS. WILL CONTINUE MONITORING.
[2019-01-14] MEDS: NACL 0.9% 1,000 ML IV SCH (18:52)
--- NOTE | 2019-01-14 19:20 | NUR ---
PT ENDORSED TO FINISHED GOODS STOCK CLERK NURSE IN STABLE CONDITION
--- NOTE | 2019-01-14 19:21 | NUR ---
REPORT RECEIVED FROM AM NURSE AT BEDSIDE. PT IN STABLE CONDITION. AAOX4. INTRODUCED SELF TO PT. BOARD UPDATED. NO COMPLAINTS OF PAIN. NO SOB ON 2L O2 VIA NC. AFEBRILE. PT IS AMBULATORY WITH ASSIST. PT HAS CAO. IV SITE L AC 20G RUNNING NS@10ML/HR PATENT AND INTACT. SKIN WARM, DRY, AND INTACT WITH NO OPEN WOUNDS. BED LOCKED IN LOW POSITION. CALL CLEMENTS WITHIN REACH. SAFETY PRECAUTION IN PLACE. ALL NEEDS MET AT THIS TIME.
[2019-01-14] MEDS ORDERED: BUDESONIDE 0.5 MG/2 ML NEBU INH SCH (19:30)
[2019-01-14 20:00] VITALS: BP 133/61
--- NOTE | 2019-01-14 20:31 | NUR ---
AMBIEN, COREG, MEGACE, RISPERDAL, SINGULAR, AND VIT C GIVEN PO. HEPARIN GIVEN SUBQ. PT TOLERATED WELL.
[2019-01-14] MEDS ORDERED: ZOLPIDEM 5 MG TAB PO SCH (21:00)
[2019-01-14] MEDS ORDERED: risperiDONE 1 MG TAB PO SCH (21:00)
[2019-01-14] MEDS ORDERED: MONTELUKAST SODIUM 10 MG TAB PO SCH (21:00)
[2019-01-14] MEDS: FUROSEMIDE 20 MG/2 ML VIAL IVP SCH (21:51)
--- NOTE | 2019-01-14 21:51 | NUR ---
LASIX GIVEN IVP. PT TOLERATED WELL.
--- NOTE | 2019-01-14 23:45 | NUR ---
PT SLEEPING COMFORTABLY BUT AROUSABLE. NO S/S OF DISTRESS NOTED. WILL CONTINUE TO MONITOR.
[2019-01-15] VITALS: BP 133/78
--- NOTE | 2019-01-15 01:35 | NUR ---
PT SLEEPING COMFORTABLY BUT AROUSABLE. NO S/S OF DISTRESS NOTED. NO COMPLAINTS OF PAIN. NO SOB ON 2L O2 VIA NC. AFEBRILE. WILL CONTINUE TO MONITOR.
--- NOTE | 2019-01-15 03:15 | NUR ---
PT SLEEPING COMFORTABLY BUT AROUSABLE. NO S/S OF DISTRESS NOTED. RESPIRATIONS EVEN, UNLABORED, AND WNL. WILL CONTINUE TO MONITOR.
[2019-01-15 04:00] VITALS: BP 128/74
--- NOTE | 2019-01-15 05:00 | NUR ---
PT AWAKE AND ALERT UP IN BED. NO S/S OF DISTRESS NOTED. WILL CONTINUE TO MONITOR.
[2019-01-16] VITALS: BP 126/72
--- NOTE | 2019-01-16 07:15 | NUR ---
RECEIVE REPORT FROM NIGHT NURSE. PT DX WITH CHF, INCREASE TROPONIN AND HAS A HX OF COPD, HTN, HLD, R TOTAL KNEE REPLACEMENT. PT IS ON 2 L OXYGEN, NASAL CANULA. PT HAS A L AC 20 G RUNNING 10 ML/H NORMAL SALINE. PT HAS A CAO CATH IN PLACE, PT IS CURRENTLY SLEEPING, NO SIGNS OF DISTRESS. CALL LIGHT WITHIN REACH.
[2019-01-16] MEDS: ALBUTEROL SULFATE/IPRATROPIU 3 ML SOL IH SCH (07:16)
[2019-01-16 08:00] VITALS: BP 118/62
[2019-01-16] MEDS: MEGESTROL 40 MG TAB PO SCH ×2 (09:00→09:12)
[2019-01-16] MEDS: ASCORBIC ACID 500 MG TAB PO SCH ×2 (09:00→09:11)
[2019-01-16] MEDS: FUROSEMIDE 20 MG/2 ML VIAL IVP SCH ×2 (09:00→09:14)
[2019-01-16] MEDS: CARVEDILOL 6.25 MG TAB PO SCH ×2 (09:00→09:13)
[2019-01-16] MEDS: amLODIPine 5 MG TAB PO SCH (09:00)
[2019-01-16] MEDS: hydrALAZINE 25 MG TAB PO SCH (09:00)
[2019-01-16] MEDS: POTASSIUM CHLORIDE 10 MEQ TABER PO SCH (09:11)
[2019-01-16] MEDS: ASPIRIN 81 MG TAB.CHEW PO SCH (09:12)
[2019-01-16] MEDS: FERROUS SULFATE 325 MG TABEC PO SCH (09:12)
[2019-01-16] MEDS: ATORVASTATIN 20 MG TAB PO SCH (09:12)
--- NOTE | 2019-01-16 19:30 | NUR ---
RECEIVED BEDSIDE REPORT FROM AM SHIFT RN FOR PT'S CONTINUITY OF CARE. PT IS AAOX4, WATCHING TV, WITH NO COMPLAINS OF PAIN. PT IS ON EMANATIONS ANALYSIS TECHNICIAN, IS ON 2L O2 VIA NC, HAS LEFT AC 20 WITH NS AT 10ML/HR, AND SCD ARE IN PLACE. EXPLAINED TO PT THE ALL AROUND PRESSER ROUTINE, AND PT VERBALIZED UNDERSTANDING. SAFETY MEASURES ARE IN PLACE, CALL LIGHT IS WITHIN REACH. WILL MONITOR PT THROUGHOUT SHIFT.
[2019-01-16 20:00] VITALS: BP 135/75
[2019-01-16 20:11] LABS: ANION GAP 11.7 (8-16); CHLORIDE 108 mmol/L (98-107); CREATININE 2.2 mg/dL (0.6-1.3); GLUCOSE 86 mg/dL (74-106); MAGNESIUM 1.9 mg/dL (1.8-2.4); PHOSPHORUS 3.5 mg/dL (2.5-4.9); POTASSIUM 3.7 mmol/L (3.5-5.1); SODIUM SERUM 144 mmol/L (136-145); UREA NITROGEN, BLOOD 39 mg/dL (7-18)
[2019-01-16] MEDS ORDERED: ZOLPIDEM 10 MG TAB ONE (21:22)
--- NOTE | 2019-01-16 22:30 | NUR ---
ADMINISTERED SCHEDULED PO, SUBQ, AND IVP MEDICATIONS ORDERED. CARVEDILOL HELD PER MD, MEGESTROL AND RISPERIDONE NOT GIVEN, MEDS NOT AVAILABLE. PT TOLERATED THEM WELL. PT DENIES ANY PAIN OR DISCOMFORT. WILL CONTINUE TO MONITOR PT.
[2019-01-16 23:01] LABS: MAGNESIUM 1.9 mg/dL (1.8-2.4); PHOSPHORUS 3.2 mg/dL (2.5-4.9)
[2019-01-16 23:02] LABS: ANION GAP 7.1 (8-16); CARBON DIOXIDE 31.6 mmol/L (21-32); CHLORIDE 104 mmol/L (98-107); GLUCOSE 112 mg/dL (74-106); POTASSIUM 4.7 mmol/L (3.5-5.1); SODIUM SERUM 138 mmol/L (136-145)
[2019-01-16 23:03] LABS: CREATININE 2.1 mg/dL (0.6-1.3); UREA NITROGEN, BLOOD 42 mg/dL (7-18)
[2019-01-17] VITALS: BP 126/72
--- NOTE | 2019-01-17 | NUR ---
VS CHECKED AND CHARTED. PT DENIES ANY PAIN AT THIS TIME. PT LYING DOWN COMFORTABLE, SCDS IN PLACE, CALL LIGHT WITHIN REACH. WILL CONTINUE TO MONITOR PT.
--- NOTE | 2019-01-17 02:20 | NUR ---
MADE ROUNDS. PT LYING DOWN ASLEEP WITH NO SIGNS OF DISTRESS.
[2019-01-17 04:00] VITALS: BP 137/70
--- NOTE | 2019-01-17 04:35 | NUR ---
VS CHECKED AND CHARTED. PT AWAKE, LYING COMFORTABLY IN BED, DENIES ANY PAIN AT THIS TIME. WILL CONTINUE TO MONITOR PT.
--- NOTE | 2019-01-17 06:20 | NUR ---
PT AWAKE IN BED, REQUESTED AND PROVIDED SODA. PT MADE COMFORTABLE. CURRENTLY ON ROOM AIR WITHOUT RESPIRATORY DISTRESS. WILL ENDORSE TO AM SHIFT RN FOR PT'S CONTINUITY OF CARE.
[2019-01-17] MEDS: ALBUTEROL SULFATE/IPRATROPIU 3 ML SOL IH SCH (06:39)
--- NOTE | 2019-01-17 07:30 | NUR ---
RECEIVED PT AAO. NO SOB NOTED. NO C/O PAIN AT THIS TIME. INSTRUCTED PT TO CALL FOR ASSISTANCE. CALL LIGHT WITHIN REACH, VERBALIZED UNDERSTANDING.
[2019-01-17 08:00] VITALS: BP 141/79
[2019-01-17 08:07] LABS: BASOPHILS % (AUTO) 0.6 % (0.0-2.0); EOSINOPHILS # (AUTO) 0.1 K/uL (0-0.4); EOSINOPHILS % (AUTO) 2.3 % (0.0-4.0); HEMATOCRIT 29.1 % (36-48); HEMOGLOBIN 9.6 g/dL (12.0-16.0); LYMPHOCYTES # (AUTO) 0.7 K/uL (2.5-16.5); LYMPHOCYTES % (AUTO) 11.5 % (20.5-51.1); MEAN CORPUSCULAR HEMOGLOBIN 29 pg (27-31); MEAN CORPUSCULAR HGB CONC 33 g/dL (33-37); MEAN CORPUSCULAR VOLUME 88.9 fL (80-94); MONOCYTES % (AUTO) 16.8 % (1.7-9.3); NEUTROPHILS # (AUTO) 4.2 K/uL (1.8-7.7); NEUTROPHILS % (AUTO) 68.8 % (42.2-75.2); PLATELET COUNT (AUTO) 173 K/uL (140-450); RED BLOOD CELL COUNT(AUTO) 3.27 MIL/uL (4.20-5.40); RED CELL DISTRIBUTION WIDTH 17.3 % (11.6-13.7); WHITE BLOOD COUNT (AUTO) 6.1 K/uL (4.8-10.8)
[2019-01-17 08:45] LABS: ANION GAP 9.8 (8-16); CARBON DIOXIDE 29.2 mmol/L (21-32); CHLORIDE 105 mmol/L (98-107); GLUCOSE 106 mg/dL (74-106); SODIUM SERUM 140 mmol/L (136-145); UREA NITROGEN, BLOOD 39 mg/dL (7-18)
[2019-01-17 09:00] LABS: MAGNESIUM 1.9 mg/dL (1.8-2.4)
--- NOTE | 2019-01-17 09:00 | NUR ---
SPOKE WITH PT'S PETROLEUM PRODUCTION ENGINEER ROSIBEL OVER THE PHONE, STATED SHE WILL SEND ONE OF HER OTHER PETROLEUM PRODUCTION ENGINEER TO NETWORK OPERATIONS ANALYST PT.
[2019-01-17] MEDS: ASPIRIN 81 MG TAB.CHEW PO SCH (09:05)
[2019-01-17] MEDS: ATORVASTATIN 20 MG TAB PO SCH (09:05)
[2019-01-17] MEDS: hydrALAZINE 25 MG TAB PO SCH (09:06)
[2019-01-17] MEDS: ASCORBIC ACID 500 MG TAB PO SCH (09:06)
[2019-01-17] MEDS: FERROUS SULFATE 325 MG TABEC PO SCH (09:06)
[2019-01-17] MEDS: amLODIPine 5 MG TAB PO SCH (09:06)
[2019-01-17] MEDS: CARVEDILOL 6.25 MG TAB PO SCH (09:07)
[2019-01-17] MEDS: POTASSIUM CHLORIDE 10 MEQ TABER PO SCH (09:07)
[2019-01-17] MEDS: FUROSEMIDE 20 MG/2 ML VIAL IVP SCH (09:08)
[2019-01-17] MEDS ORDERED: FURO-570 PO (09:36)
[2019-01-17] MEDS ORDERED: POTA10TE30 PO (09:36)
[2019-01-17 10:38] LABS: BASOPHILS % (AUTO) 0.6 % (0.0-2.0); EOSINOPHILS # (AUTO) 0.1 K/uL (0-0.4); EOSINOPHILS % (AUTO) 1.7 % (0.0-4.0); HEMATOCRIT 31.3 % (36-48); LYMPHOCYTES # (AUTO) 1.3 K/uL (2.5-16.5); LYMPHOCYTES % (AUTO) 19.8 % (20.5-51.1); MEAN CORPUSCULAR HEMOGLOBIN 29 pg (27-31); MEAN CORPUSCULAR HGB CONC 32 g/dL (33-37); MEAN CORPUSCULAR VOLUME 89.5 fL (80-94); MONOCYTES % (AUTO) 16.3 % (1.7-9.3); NEUTROPHILS # (AUTO) 3.9 K/uL (1.8-7.7); NEUTROPHILS % (AUTO) 61.6 % (42.2-75.2); PLATELET COUNT (AUTO) 198 K/uL (140-450); RED BLOOD CELL COUNT(AUTO) 3.49 MIL/uL (4.20-5.40); RED CELL DISTRIBUTION WIDTH 17.6 % (11.6-13.7); WHITE BLOOD COUNT (AUTO) 6.4 K/uL (4.8-10.8)
--- NOTE | 2019-01-17 10:40 | NUR ---
PT'S COMPUTER SYSTEMS ADMINISTRATOR RIA IS HERE. DISCHARGE INSTRUCTIONS AND PRESCRIPTIONS GIVEN, BOTH PT AND COMPUTER SYSTEMS ADMINISTRATOR VERBALIZED FULL UNDERSTANDING OF THE INSTRUCTIONS GIVEN AND THE NEED TO FOLLOW UP WITH PCP WITHIN 5 DAYS. ARM BANDS AND IV REMOVED, CANNULA TIP INTACT. CAO DISCONTINUED, PT TOLERATED PROCEDURE WELL.
--- NOTE | 2019-01-17 10:55 | NUR ---
PT WHEELED TO THE PARKING AREA IN STABLE CONDITION. NO COMPLAINTS MADE. NO SOB NOTED. PT IS D/C HOME WITH K9 HANDLER RIA.
[2019-01-18 19:23] LABS: ANION GAP 9.5 (8-16); CARBON DIOXIDE 29.4 mmol/L (21-32); CHLORIDE 105 mmol/L (98-107); GLUCOSE 82 mg/dL (74-106); MAGNESIUM 1.9 mg/dL (1.8-2.4); PHOSPHORUS 3.7 mg/dL (2.5-4.9); POTASSIUM 3.9 mmol/L (3.5-5.1); SODIUM SERUM 140 mmol/L (136-145)
[2019-01-18 19:24] LABS: CREATININE 2.1 mg/dL (0.6-1.3); UREA NITROGEN, BLOOD 41 mg/dL (7-18)
[2019-01-20 19:00] LABS: WHITE BLOOD COUNT (AUTO) 5.2 K/uL (4.8-10.8)
[2019-01-20 19:07] LABS: HEMATOCRIT 30.2 % (36-48); HEMOGLOBIN 9.7 g/dL (12.0-16.0); MEAN CORPUSCULAR HEMOGLOBIN 29 pg (27-31); MEAN CORPUSCULAR HGB CONC 32 g/dL (33-37); RED BLOOD CELL COUNT(AUTO) 3.39 MIL/uL (4.20-5.40); RED CELL DISTRIBUTION WIDTH 17.5 % (11.6-13.7)
[2019-01-20 19:08] LABS: PLATELET COUNT (AUTO) 184 K/uL (140-450)
[2019-01-20 19:09] LABS: BASOPHILS % (AUTO) 0.7 % (0.0-2.0); EOSINOPHILS % (AUTO) 2.6 % (0.0-4.0); LYMPHOCYTES % (AUTO) 18.2 % (20.5-51.1); MONOCYTES % (AUTO) 16.7 % (1.7-9.3); NEUTROPHILS % (AUTO) 60.8 % (42.2-75.2)
[2019-01-20 19:10] LABS: EOSINOPHILS # (AUTO) 0.1 K/uL (0-0.4); LYMPHOCYTES # (AUTO) 0.9 K/uL (2.5-16.5); MONOCYTES # (AUTO) 0.9 K/uL (0.8-1.0); NEUTROPHILS # (AUTO) 3.2 K/uL (1.8-7.7)
== END 2019-01-17 10:55 | disposition home or self-care (01) | DRG 280 ==
LOC: MED 15:44 → MTU 18:24
PROVIDERS: ADMIT Family Medicine; ATTEND Family Medicine
DX: I11.0 Hypertensive heart disease with heart failure (principal); I21.A1 Myocardial infarction type 2; N17.0 Acute kidney failure with tubular necrosis; E43 Unspecified severe protein-calorie malnutrition; K85.90 Acute pancreatitis without necrosis or infection, unspecified; I31.3 Pericardial effusion (noninflammatory); Z68.1 Body mass index [BMI] 19.9 or less, adult; I50.43 Acute on chronic combined systolic (congestive) and diastolic (congestive) heart failure; J44.9 Chronic obstructive pulmonary disease, unspecified; E78.5 Hyperlipidemia, unspecified; Z96.651 Presence of right artificial knee joint; I25.10 Atherosclerotic heart disease of native coronary artery without angina pectoris; D50.9 Iron deficiency anemia, unspecified; R73.9 Hyperglycemia, unspecified; G47.00 Insomnia, unspecified; R06.03 Acute respiratory distress; E87.8 Other disorders of electrolyte and fluid balance, not elsewhere classified; F39 Unspecified mood [affective] disorder; I08.1 Rheumatic disorders of both mitral and tricuspid valves; Z79.899 Other long term (current) drug therapy; Z80.3 Family history of malignant neoplasm of breast
CPT/HCPCS: 36415; 71045; 80048; 80053; 81001; 82150; 83036; 83615; 83690; 83735; 83880; 84100; 84134; 84436; 84443; 84484; 85025; 85610; 85730; 87081; 87804; 93005; 94640; 96374; 99285; J1644; J1940; J7620; J7626

== ENCOUNTER 2019-02-15 11:07 | Emergency (ER) | payer OTHER, MEDICAID ==
[~2019-02-15] VITALS: Ht 165.1 cm; Wt 54.4 kg
[~2019-02-15 11:07] MED LIST changes: +AMLO5TAB PO; +ASCO500T45 PO; +ASPI-1718 PO; -ATOR20TA PO; -AZIT250T11 PO; +CARV6.25 PO; -DALIRESP PO; +FURO-570 PO; -LACT1.4C PO; +MEGE40TA4 PO; +POTA10TE30 PO; +ROFL250T PO; +ROSU5TAB PO; -TRA200 PO
[2019-02-15 11:29] VITALS: BP 141/71
--- NOTE | 2019-02-15 11:33 | NUR ---
PT TAKEN TO BED 12.
--- NOTE | 2019-02-15 12:40 | NUR ---
73 y/o f c/c of per pt "cold symptoms for few days" and weakness. per pt nka. hx did not remember during assessment. rx does not remember. pt denies n/v/d. side rail x1. lung sounds clear upper and diminished lower.
--- NOTE | 2019-02-15 13:08 | NUR ---
report given to negra ruggiero for continuity of care
--- NOTE | 2019-02-15 13:28 | NUR ---
Dr. Buck is evaluating the patient at bedside.
[2019-02-15 13:57] VITALS: BP 154/78
--- NOTE | 2019-02-15 13:57 | NUR ---
Patient discharged with v/s stable. Written and verbal after care instructions given and explained. Patient alert, oriented and verbalized understanding of instructions. Ambulatory with steady gait. All questions addressed prior to discharge. ID band removed. Patient advised to follow up with PMD. Rx of PREDNISONE, MOTRIN given. Patient educated on indication of medication including possible reaction and side effects. Opportunity to ask questions provided and answered.
== END 2019-02-15 13:57 | disposition home or self-care (01) ==
LOC: MED 11:07
DX: J06.9 Acute upper respiratory infection, unspecified (principal); J45.901 Unspecified asthma with (acute) exacerbation; I10 Essential (primary) hypertension; Z79.899 Other long term (current) drug therapy; Z79.82 Long term (current) use of aspirin
CPT/HCPCS: 99283

== ENCOUNTER 2019-03-29 20:45 | Inpatient (IN) | payer OTHER, MEDICAID ==
[~2019-03-29] VITALS: Ht 170.2 cm; Wt 54.4 kg
[~2019-03-29 20:45] MED LIST changes: -ASPI-1718 PO; +ASPI-1822 PO; +MEGE40TA33 PO; -MEGE40TA4 PO
[2019-03-29 20:54] VITALS: BP 145/72
--- NOTE | 2019-03-29 20:54 | NUR ---
PT WAS TAKEN TO BED 03 VIA WHEELCHAIR.
--- NOTE | 2019-03-29 21:00 | NUR ---
BROUGHT IN BY NANY BOYKIN WITH C/O COUGH, GIORGI,FOR 4 DAYS AND DIARRHEA SINCE SHE TOOK ANTIBIOTIC .
[2019-03-29] MEDS ORDERED: AZITHROMYCIN 1,000 MG in DEXTROSE 5% 500 ML IV ONE (21:20)
[2019-03-29] MEDS ORDERED: LEVOFLOXACIN 750 MG/D5W PREMIX 150 ML IV ONE (21:20)
[2019-03-29] MEDS ORDERED: ACETAMINOPHEN 325 MG TAB PO PRN (21:25)
[2019-03-29] MEDS ORDERED: ALBUTEROL SULFATE/IPRATROPIU 3 ML SOL IH PRN (21:25)
[2019-03-29] MEDS ORDERED: ONDANSETRON 4 MG/2 ML VIAL IVP PRN (21:25)
--- NOTE | 2019-03-29 21:37 | NUR ---
Patient will be admitted to care of DR. QUINTANILLA. Admited to MS . Will go to room 107 A. Belongings list completed.
[2019-03-29 21:59] LABS: BASOPHILS % (AUTO) 0.2 % (0.0-2.0); EOSINOPHILS % (AUTO) 0.6 % (0.0-4.0); HEMATOCRIT 28.5 % (36-48); HEMOGLOBIN 9.5 g/dL (12.0-16.0); LYMPHOCYTES # (AUTO) 0.9 K/uL (2.5-16.5); LYMPHOCYTES % (AUTO) 22.8 % (20.5-51.1); MEAN CORPUSCULAR HEMOGLOBIN 29 pg (27-31); MEAN CORPUSCULAR HGB CONC 33 g/dL (33-37); MEAN CORPUSCULAR VOLUME 86.9 fL (80-94); MONOCYTES # (AUTO) 0.6 K/uL (0.8-1.0); MONOCYTES % (AUTO) 16.3 % (1.7-9.3); NEUTROPHILS # (AUTO) 2.3 K/uL (1.8-7.7); NEUTROPHILS % (AUTO) 60.1 % (42.2-75.2); PLATELET COUNT (AUTO) 236 K/uL (140-450); RED BLOOD CELL COUNT(AUTO) 3.28 MIL/uL (4.20-5.40); RED CELL DISTRIBUTION WIDTH 17.5 % (11.6-13.7); WHITE BLOOD COUNT (AUTO) 3.9 K/uL (4.8-10.8)
[2019-03-29] MEDS: NACL 0.9% 1,000 ML IV SCH (22:00)
[2019-03-29] MEDS ORDERED: AZITHROMYCIN 500 MG INJ VIAL IV ONE (22:10)
[2019-03-29 22:16] LABS: ALBUMIN 2.9 g/dL (3.4-5.0); ANION GAP 11.2 (8-16); ASPARTATE AMINOTRANSFERASE 24 U/L (15-37); CARBON DIOXIDE 28.9 mmol/L (21-32); CHLORIDE 111 mmol/L (98-107); CREATININE 1.8 mg/dL (0.6-1.3); GLUCOSE 116 mg/dL (74-106); POTASSIUM 3.1 mmol/L (3.5-5.1); SODIUM SERUM 148 mmol/L (136-145); TOTAL BILIRUBIN 0.2 mg/dL (0.0-1.0); UREA NITROGEN, BLOOD 26 mg/dL (7-18)
[2019-03-29 22:25] VITALS: BP 113/70
--- NOTE | 2019-03-29 22:25 | NUR ---
Admitted from ER TO MED SURGICAL UNIT , with chief complaint of COUGHING FOR A WEEK , 73 y/o, Female, Cooperative, A/OX3, HARD OF HEARING. RESPIRATION EVEN AND UNLABORED, 02 SAT - 97% ON ROOM AIR, STATED SHE IS ON 0XYGEN AT HOME AT 2 LITERS N/C. NOTED COARSE LUNG SOUNDS ON BILATERAL LUNG AUSCULTATION. AMBULATES WITH WALKER AT HOME. HEAD TO TOE ASSESSMENT DONE WITH CHARGE NURSE FREEDOM, SKIN INTACT. DENIES PAIN 0/10.oriented to call light, bed, phone,television, bathroom, smoking policy,visiting hours, procedures, ID bracelet on. Belongings list checked.
--- NOTE | 2019-03-29 22:25 | NUR ---
Admitted from ER TO [facility] , with chief complaint of COUGHING FOR A WEEK , 73 y/o ,Female, Cooperative, oriented to call light, bed, phone,television, bathroom, smoking policy, visiting hours, procedures, ID bracelet on. Belongings list checked. Addendum: 03/29/19 at 2343 by Alexus Hawk LVN CORRECTION: PLS DISREGARD THIS NOTES.
[2019-03-29] MEDS ORDERED: PIPERACILLIN/TAZOBACTAM 2.25 GM in DEXTROSE 5% 50 ML IV SCH (23:00)
[2019-03-30 00:11] LABS: FREE T4 (FREE THYROXINE) 1.12 ng/dL (0.76-1.46); MAGNESIUM 2.2 mg/dL (1.8-2.4); PHOSPHORUS 2.5 mg/dL (2.5-4.9); THYROID STIMULATING HORMONE 2.51 uIU/mL (0.34-3.74)
[2019-03-30 00:15] LABS: PROTHROMBIN TIME 10.2 secs (10.8-13.4)
[2019-03-30] MEDS ORDERED: PIPERACILLIN/TAZOBACTAM 2.25 GM VIAL IV ONE (00:53)
[2019-03-30] MEDS: NACL 0.9% 1,000 ML IV SCH (00:55)
[2019-03-30] MEDS ORDERED: POTASSIUM CHLORIDE 10 MEQ TABER PO SCH (01:00)
--- NOTE | 2019-03-30 01:44 | NUR ---
K LEVEL - 1.3, MEDICATED WITH K-DUR PER MD ORDER.
--- NOTE | 2019-03-30 03:23 | NUR ---
Patient's Plan of Care was discussed and reviewed with MATERIAL CONTROL SUPERVISOR: RINA VELASQUEZ.
[2019-03-30 04:00] VITALS: BP 139/80
[2019-03-30] MEDS ORDERED: ALBUTEROL SULFATE/IPRATROPIU 3 ML SOL IH SCH (06:00)
[2019-03-30] MEDS ORDERED: PIPERACILLIN/TAZOBACTAM 2.25 GM in DEXTROSE 5% 50 ML IV SCH (07:00)
[2019-03-30] MEDS: NACL 0.45% 1,000 ML IV SCH (07:10)
--- NOTE | 2019-03-30 07:22 | NUR ---
PT IS IN BED IN AWAKE AND RESPONDING. NO COMPLAINS OF PAIN OR DISTRESS NOTED. CALL LIGHT IN REACH
--- NOTE | 2019-03-30 07:22 | NUR ---
CONDITION REMAIN STABLE. ENDORSED TO AM SHIFT NURSE FOR CONTINUITY OF CARE.
[2019-03-30 07:36] LABS: BASOPHILS % (AUTO) 1.6 % (0.0-2.0); EOSINOPHILS % (AUTO) 0.4 % (0.0-4.0); HEMATOCRIT 21.4 % (36-48); HEMOGLOBIN 7.2 g/dL (12.0-16.0); LYMPHOCYTES # (AUTO) 0.6 K/uL (2.5-16.5); LYMPHOCYTES % (AUTO) 18.6 % (20.5-51.1); MEAN CORPUSCULAR HEMOGLOBIN 29 pg (27-31); MEAN CORPUSCULAR HGB CONC 34 g/dL (33-37); MONOCYTES # (AUTO) 0.4 K/uL (0.8-1.0); MONOCYTES % (AUTO) 12.7 % (1.7-9.3); NEUTROPHILS % (AUTO) 66.7 % (42.2-75.2); PLATELET COUNT (AUTO) 203 K/uL (140-450); RED BLOOD CELL COUNT(AUTO) 2.49 MIL/uL (4.20-5.40); RED CELL DISTRIBUTION WIDTH 17.2 % (11.6-13.7)
[2019-03-30 07:50] LABS: ANION GAP 9.5 (8-16); CARBON DIOXIDE 27.1 mmol/L (21-32); CHLORIDE 113 mmol/L (98-107); CREATININE 1.6 mg/dL (0.6-1.3); GLUCOSE 84 mg/dL (74-106); POTASSIUM 3.6 mmol/L (3.5-5.1); SODIUM SERUM 146 mmol/L (136-145); UREA NITROGEN, BLOOD 23 mg/dL (7-18)
[2019-03-30 08:00] VITALS: BP 113/70
[2019-03-30] MEDS: hydrALAZINE 25 MG TAB PO SCH ×3 (08:17→16:36)
[2019-03-30] MEDS: CARVEDILOL 6.25 MG TAB PO SCH ×2 (08:17→21:31)
[2019-03-30] MEDS: POTASSIUM CHLORIDE 10 MEQ TABER PO SCH (08:17)
[2019-03-30] MEDS: ASCORBIC ACID 500 MG TAB PO SCH ×2 (08:18→21:30)
[2019-03-30] MEDS: amLODIPine 5 MG TAB PO SCH (08:18)
[2019-03-30] MEDS: ASPIRIN 81 MG TAB.CHEW PO SCH (08:18)
[2019-03-30] MEDS: DOCUSATE SODIUM 100 MG GELCAP PO SCH ×2 (08:18→21:32)
[2019-03-30] MEDS: MONTELUKAST SODIUM 10 MG TAB PO SCH (08:18)
[2019-03-30] MEDS: FUROSEMIDE 20 MG/2 ML VIAL IVP SCH ×2 (08:19→21:32)
--- NOTE | 2019-03-30 08:49 | NUR ---
PATIENT HAS BEEN SCREENED AND CATEGORIZED HIGH NUTRITION RISK. PATIENT WILL BE SEEN WITHIN 1-2 DAYS OF ADMISSION. 03/30/19-03/31/[address]
[2019-03-30] MEDS ORDERED: [UNRECOGNIZED DRUG - OTHER] IH SCH (09:00)
[2019-03-30] MEDS ORDERED: FERROUS SULFATE 325 MG TABEC PO SCH (09:00)
[2019-03-30] MEDS ORDERED: NON-FORMULARY ITEM (Rosuvastatin Calcium* (Crestor*) 1 TAB) PO SCH (09:00)
[2019-03-30] MEDS ORDERED: BUDESONIDE IH SCH (09:00)
[2019-03-30] MEDS ORDERED: ROFLUMILAST 500 MCG PO SCH (09:00)
[2019-03-30] MEDS ORDERED: FORMOTEROL FUMARATE IH SCH (09:00)
[2019-03-30 09:34] LABS: PHOSPHORUS 2.6 mg/dL (2.5-4.9)
--- NOTE | 2019-03-30 09:38 | NUR ---
PT IS IN BED AT THIS TIME. PT WAS ABLE TO TAKE MEDICINES. PT IS AWAKE AND ALERT AND RESPONDING. NO DISTRESS NOTED. NO COMPLAINS OF PAIN. CALL LIGHT IN REACH.
--- NOTE | 2019-03-30 10:34 | NUR ---
Generation Mechanic Helper Note: Basic Screen: Yes High Risk DC Screen Yes Name: ROSIBEL QUESADA Home Relationship: COUSIN Pre-Admission Living Arrangements: Lives with Other Prior ADL Needs Assistance Current Home Health Name/Tel: N/A Current DME/02 Name/Tel: WALKER, OXYGEN, NEBULIZER Current Hospice Name/Tel: N/A Current Dialysis Name/Tel: N/A Healthcare Decision Maker: Patient Advance Directive No Physician Orders for Life Sustaining Treatment Form No Patient/Family Have Educational Needs No Information Taught: Advance Directive Person Taught: Patient Teaching Tools: Verbal Factors Affecting Learning: None Participation Level: Refused Evaluation: Verbalizes Understanding Needs Additional Education: No Discipline: Case Mgt/Social Svcs Tentative Discharge Plan/Destination: No Needs Identified Will require assistance post discharge: No Referred to Photo Graphics Librarian: No Tentative Discharge Plan Summary: Patient is a 73-year-old female admitted for pneumonia. Patient has PMHX of COPD, HTN, CAD, and hard of hearing. Patient was admitted from home where she lives with her cousin, Rosibel Quesada. SW met with patient at bedside to verify demographics. Patient stated that she is ambulatory with a walker, and utilizes oxygen and a nebulizer at home. Patient states that Rosibel Quesada is patient's primary caregiver. Patient reports no history of mental health or substancea buse. Patient's tentative discharge plan is to return home. No further needs identified. Signature: MARELY Gavin Date: Mar 30, 2019 Time: 10:33
[2019-03-30] MEDS ORDERED: AZITHROMYCIN 250 MG TAB PO SCH (10:40)
[2019-03-30] MEDS ORDERED: FURO-572 PO (11:16)
[2019-03-30] MEDS ORDERED: RIS1 PO (11:16)
[2019-03-30] MEDS ORDERED: ROFL250T PO (11:16)
[2019-03-30] MEDS ORDERED: FERR325E14 PO (11:16)
[2019-03-30 12:00] VITALS: BP 131/57
--- NOTE | 2019-03-30 12:00 | NUR ---
STRAIGHT CATH WAS NOT DONE. PT WAS ABLE TO VOID. COLLECTED URINE SAMPLE AND SENT TO LAB.
--- NOTE | 2019-03-30 13:33 | NUR ---
PT IS RESTING IN BED AT THIS TIME. PT HAD LUNCH AND TOLERATED WELL. NO COMPLAINS OF PAIN REPORTED. CALL LIGHT IN REACH.
[2019-03-30] MEDS ORDERED: OSELTAMIVIR PHOSPHATE 30 MG CAP PO SCH (14:00)
[2019-03-30] MEDS: ALBUTEROL SULFATE/IPRATROPIU 3 ML SOL IH SCH ×2 (14:02→19:00)
--- NOTE | 2019-03-30 14:02 | NUR ---
*S.T. BEDSIDE SWALLOW EVAL COMPLETED* See report. Pt presents w/ adequate oropharyngeal swallow function across all textures; w/o overt s/s aspiration. Pt unable to self-feed, requires assistance. Pt able to chew and swallow solids. However, it was observed that much of pt's chewed food collects around lower dentition. Recommend: 1) Continue regular diet, thin liquids. Straws okay. 2) P.O. meds okay whole, one at a time. 3) Assist w/ feeding by nsg. 4) Oral care after meals due to dental residue after P.O. intake. Pt appears to be functioning at her reported baseline. No further swallow tx indicated at this time. DC to nsg care. Endorsed to MARYAM Wade. Time [id number]
[2019-03-30 16:00] VITALS: BP 135/75
[2019-03-30 16:38] LABS: APPEARANCE,URINE SL CLOUDY (CLEAR); BILIRUBIN,URINE NEGATIVE (NEGATIVE); BLOOD, URINE NEGATIVE (NEGATIVE); COLOR,URINE YELLOW (YELLOW); LEUKOCYTE ESTERASE ,URINE NEGATIVE (NEGATIVE); NITRITE, URINE NEGATIVE (NEGATIVE); PH,URINE 6.5 (5.0-9.0); UGLUCOSE NEGATIVE (NEGATIVE)
--- NOTE | 2019-03-30 17:45 | NUR ---
PT IS AWAKE AND ALERT AND RESPONDING PT'S FAMILY WAS AT BEDSIDE. NO DISTRESS NOTED. CALL LIGHT IN REACH.
--- NOTE | 2019-03-30 19:12 | NUR ---
SHIFT REPORT GIVEN TO JOCKEY'S AGENT NURSE. PT IS IN BED ALERT AND AWAKE AND RESPONSIVE. NO DISTRESS NOTED. CALL LIGHT IN REACH.
--- NOTE | 2019-03-30 19:15 | NUR ---
RECEIVED REPORT FROM LARRY FRANCISCO DAYSHIFT AT BEDSIDE FOR CONTINUITY OF CARE, PT IN STABLE CONDITION.
[2019-03-30 20:00] VITALS: BP 123/70
--- NOTE | 2019-03-30 20:00 | NUR ---
PT IN BED IV SITE IS ON RAC RUNNING NORMAL SALINE AT 20MLS/HR. PT SKIN INTACT AND SHE ADAIR ANY PAIN AT THIS TIME. V/S FOLLOWS: T 98.2 P 86 R 20 B/P 123/70 02 98% ON ROOM AIR. ALL FALLS PRECAUTIONS IN PLACE AND ALL REQUESTED NEEDS ATTENDED BY STAFF.
[2019-03-30] MEDS ORDERED: ZOLPIDEM 5 MG TAB PO SCH (21:00)
--- NOTE | 2019-03-30 21:00 | NUR ---
PT GIVEN SCHEDULED AND ORDERED MEDS AT THIS TIME. EDUCATION REGARDING ORDERED MEDICATION PROVIDED AT BEDSIDE, INCLUDING SIDE EFFECTS. PT ADAIR ANY PAIN, ALL REQUESTED NEEDS ATTENDED BY STAFF. ALL FALLS PRECAUTIONS IN PLACE.
[2019-03-30] MEDS: SIMVASTATIN 20 MG TAB PO SCH (21:30)
[2019-03-30] MEDS: OSELTAMIVIR PHOSPHATE 75 MG CAP PO SCH (21:31)
[2019-03-30] MEDS: risperiDONE 1 MG TAB PO SCH (21:31)
[2019-03-30] MEDS: FERROUS SULFATE 325 MG TABEC PO SCH (21:31)
[2019-03-31] VITALS: BP 129/68
--- NOTE | 2019-03-31 | NUR ---
PT IN BED NO S/S OF PAIN OR DISTRESS NOTED. V/S FOLLOWS; T 97.7 P 67 R 18 B/P 129/68 02 100% ON ROOM AIR. N/S RUNNING AT 25MLS/HR IV SITE INTACT AND ASYMPTOMATIC. ALL FALLS PRECAUTIONS IN PLACE AND ALL REQUESTED NEEDS ATTENDED BY STAFF.
[2019-03-31] MEDS: ALBUTEROL SULFATE/IPRATROPIU 3 ML SOL IH SCH ×3 (06:30→21:49)
[2019-03-31 07:09] LABS: FOLIC ACID 16.3 ng/mL (>3.0)
--- NOTE | 2019-03-31 07:10 | NUR ---
RECEIVED REPORT FROM NIGHT NURSE, PT ASLEEP IN BED, PT IS STABLE, NO SIGNS OF RESPIRATORY DISTRESS NOTED, SAFETY MEASURES IN PLACE, PT HAS RAC 20G RUNNING NS AT 25ML, UPDATED WHITE BOARD, CALL LIGHT WITHIN REACH,
[2019-03-31] MEDS: NACL 0.45% 1,000 ML IV SCH (07:38)
[2019-03-31 08:00] VITALS: BP 111/62
[2019-03-31 08:02] LABS: ANION GAP 8.3 (8-16); CARBON DIOXIDE 28.5 mmol/L (21-32); CHLORIDE 110 mmol/L (98-107); CREATININE 1.6 mg/dL (0.6-1.3); GLUCOSE 90 mg/dL (74-106); POTASSIUM 3.8 mmol/L (3.5-5.1); SODIUM SERUM 143 mmol/L (136-145); UREA NITROGEN, BLOOD 16 mg/dL (7-18)
[2019-03-31 08:42] LABS: BASOPHILS % (AUTO) 0.4 % (0.0-2.0); EOSINOPHILS % (AUTO) 0.3 % (0.0-4.0); HEMATOCRIT 22.2 % (36-48); HEMOGLOBIN 7.4 g/dL (12.0-16.0); LYMPHOCYTES # (AUTO) 0.9 K/uL (2.5-16.5); LYMPHOCYTES % (AUTO) 20.4 % (20.5-51.1); MEAN CORPUSCULAR HEMOGLOBIN 29 pg (27-31); MEAN CORPUSCULAR HGB CONC 33 g/dL (33-37); MEAN CORPUSCULAR VOLUME 87.3 fL (80-94); MONOCYTES # (AUTO) 0.7 K/uL (0.8-1.0); NEUTROPHILS # (AUTO) 2.6 K/uL (1.8-7.7); NEUTROPHILS % (AUTO) 62.9 % (42.2-75.2); PLATELET COUNT (AUTO) 210 K/uL (140-450); RED BLOOD CELL COUNT(AUTO) 2.55 MIL/uL (4.20-5.40); RED CELL DISTRIBUTION WIDTH 17.3 % (11.6-13.7); WHITE BLOOD COUNT (AUTO) 4.2 K/uL (4.8-10.8)
[2019-03-31] MEDS: ASCORBIC ACID 500 MG TAB PO SCH ×2 (08:55→20:50)
[2019-03-31] MEDS: CARVEDILOL 6.25 MG TAB PO SCH ×2 (08:56→20:49)
[2019-03-31] MEDS: ASPIRIN 81 MG TAB.CHEW PO SCH (08:56)
[2019-03-31] MEDS: DOCUSATE SODIUM 100 MG GELCAP PO SCH ×2 (08:56→20:50)
[2019-03-31] MEDS: amLODIPine 5 MG TAB PO SCH (08:57)
[2019-03-31] MEDS: OSELTAMIVIR PHOSPHATE 75 MG CAP PO SCH ×2 (08:57→20:50)
[2019-03-31] MEDS: FERROUS SULFATE 325 MG TABEC PO SCH ×2 (08:57→20:50)
[2019-03-31] MEDS: MONTELUKAST SODIUM 10 MG TAB PO SCH (08:57)
[2019-03-31] MEDS: POTASSIUM CHLORIDE 10 MEQ TABER PO SCH (08:58)
[2019-03-31] MEDS: hydrALAZINE 25 MG TAB PO SCH ×3 (08:58→17:06)
[2019-03-31] MEDS: FUROSEMIDE 20 MG/2 ML VIAL IVP SCH ×2 (08:59→20:49)
[2019-03-31] MEDS ORDERED: OSELTAMIVIR PHOSPHATE 30 MG CAP PO SCH ×2 (09:00)
--- NOTE | 2019-03-31 09:00 | NUR ---
PT RECEIVED ORDERED MEDICATION, EDUCATION GIVEN, PT VERBALIZED UNDERSTANDING, PT IS STABLE, CALL LIGHT WITHIN REACH.
--- NOTE | 2019-03-31 13:50 | NUR ---
GAVE PT ORDERED MEDICATION, PT EDUCATION GIVEN, PT STABLE, NO SIGNS OF DISTRESS NOTED, FAMILY AT BEDSIDE, CALL LIGHT WITHIN REACH.
--- NOTE | 2019-03-31 15:29 | NUR ---
03/31/19 RD INITIAL ASSESSMENT COMPLETED PLEASE REFER TO NUTRITION ASSESSMENT UNDER CARE ACTIVITY FOR ESTIMATED NUTRITIONAL NEEDS. 1. CONTINUE CARDIAC DIET TOLERATED 2. RECOMMEND ENSURE BID 3. RD PROVIDED NUTRITION EDUCATION FOR HIGH CALORIE AND PROTEIN DIET. PT ACCEPTED 4. RD TO FOLLOW-UP 2-3 DAYS, HIGH RISK JUAN KAT RD
[2019-03-31 16:00] VITALS: BP 117/63
--- NOTE | 2019-03-31 17:08 | NUR ---
GAVE PT ORDERED MEDICATION, MEDICATION EDUCATION GIVEN, PT VERBALIZED UNDERSTANDING, PT IS STABLE, CALL LIGHT WITHIN REACH.
--- NOTE | 2019-03-31 19:21 | NUR ---
GAVE REPORT TO NIGHT NURSE FOR CONTINUITY OF CARE, PT IS STABLE
--- NOTE | 2019-03-31 19:30 | NUR ---
ASSUMED CARE OF PATIENT. AWAKE, ALERT AND ORIENTED. NO COMPLAINS. CARE BOARD UPDATED. CALL LIGHT WITHIN REACH. PLAN OF CARE DISCUSSED WITH PATIENT AND VERBALIZED UNDERSTANDING WELL.
[2019-03-31] MEDS: risperiDONE 1 MG TAB PO SCH (20:50)
[2019-03-31] MEDS: SIMVASTATIN 20 MG TAB PO SCH (20:50)
--- NOTE | 2019-03-31 21:00 | NUR ---
PERICARE DONE. DUE MEDS GIVEN. PLAN OF CARE DISCUSSED WITH PATIENT, VERBALIZED UNDERSTANDING WELL. CALL LIGHT WITHIN REACH.
--- NOTE | 2019-03-31 22:01 | NUR ---
RECEIVED PATIENT ON 2L NASAL CANNULA, PULSE OX SAT 100%. PER PATIENT SHE WEARS 2L OXYGEN AT HOME. SCHEDULED BREATHING TREATMENT ADMINISTERED. TOLERATED TX WELL WITHOUT ADVERSE SIDE EFFECTS. PT MADE AWARE OF ORDERED MEDICATION FREQUENCY AND INSTRUCTED TO CALL NEEDED FOR SOB. NO ACUTE RESPIRATORY DISTRESS NOTED AT THIS TIME. WILL CONTINUE TO MONITOR.
--- NOTE | 2019-04-01 | NUR ---
VITAL SIGNS STABLE. AFEBRILE. PERICARE DONE BY TRAINING AND DEVELOPMENT HEAD. REPOSITIONED. CALL LIGHT WITHIN REACH.
[2019-04-01 00:54] VITALS: BP 109/61
--- NOTE | 2019-04-01 02:00 | NUR ---
SLEEPING WELL. REPOSITIONED. CALL LIGHT WITHIN REACH.
--- NOTE | 2019-04-01 04:00 | NUR ---
SLEEPING WELL. CALL LIGHT WITHIN REACH. NO COMPLAINS.
--- NOTE | 2019-04-01 07:12 | NUR ---
ENDORSED CARE AT BEDSIDE WITH ANGELES FRANCISCO, PATIENT IN STABLE CONDITION.
--- NOTE | 2019-04-01 07:13 | NUR ---
RECEIVED REPORT FROM CERTIFIED FAMILY MEDIATOR NURSE REGINALD FOR CONTINUITY OF CARE. PT IN STABLE CONDITION. RESPIRATIONS EVEN AND UNLABORED. IV INTACT AND PATENT. SAFETY MEASURES IN PLACE. BED IN LOW POSITION. BED ALARM ON. CALL LIGHT AT BEDSIDE. WILL CONTINUE TO MONITOR.
[2019-04-01 07:16] LABS: BASOPHILS % (AUTO) 0.2 % (0.0-2.0); EOSINOPHILS % (AUTO) 0.2 % (0.0-4.0); HEMATOCRIT 21.9 % (36-48); HEMOGLOBIN 7.4 g/dL (12.0-16.0); LYMPHOCYTES # (AUTO) 0.7 K/uL (2.5-16.5); LYMPHOCYTES % (AUTO) 13.5 % (20.5-51.1); MEAN CORPUSCULAR HEMOGLOBIN 29 pg (27-31); MEAN CORPUSCULAR HGB CONC 34 g/dL (33-37); MEAN CORPUSCULAR VOLUME 86.8 fL (80-94); MONOCYTES # (AUTO) 0.7 K/uL (0.8-1.0); MONOCYTES % (AUTO) 14.3 % (1.7-9.3); NEUTROPHILS # (AUTO) 3.5 K/uL (1.8-7.7); NEUTROPHILS % (AUTO) 71.8 % (42.2-75.2); PLATELET COUNT (AUTO) 210 K/uL (140-450); RED BLOOD CELL COUNT(AUTO) 2.52 MIL/uL (4.20-5.40); RED CELL DISTRIBUTION WIDTH 17.1 % (11.6-13.7); WHITE BLOOD COUNT (AUTO) 4.8 K/uL (4.8-10.8)
[2019-04-01 07:23] LABS: MAGNESIUM 1.8 mg/dL (1.8-2.4); PHOSPHORUS 3.7 mg/dL (2.5-4.9)
[2019-04-01 07:25] LABS: ANION GAP 11.4 (8-16); CARBON DIOXIDE 28.9 mmol/L (21-32); CHLORIDE 106 mmol/L (98-107); CREATININE 1.6 mg/dL (0.6-1.3); GLUCOSE 103 mg/dL (74-106); POTASSIUM 4.3 mmol/L (3.5-5.1); SODIUM SERUM 142 mmol/L (136-145); UREA NITROGEN, BLOOD 22 mg/dL (7-18)
[2019-04-01 08:00] VITALS: BP 124/67
[2019-04-01] MEDS: hydrALAZINE 25 MG TAB PO SCH ×3 (09:00→17:00)
[2019-04-01] MEDS: CARVEDILOL 6.25 MG TAB PO SCH ×2 (09:00→20:40)
[2019-04-01] MEDS: amLODIPine 5 MG TAB PO SCH (09:00)
[2019-04-01] MEDS: ALBUTEROL SULFATE/IPRATROPIU 3 ML SOL IH SCH ×3 (09:01→19:27)
[2019-04-01] MEDS: POTASSIUM CHLORIDE 10 MEQ TABER PO SCH (09:45)
[2019-04-01] MEDS: ASCORBIC ACID 500 MG TAB PO SCH ×2 (09:45→20:39)
[2019-04-01] MEDS: DOCUSATE SODIUM 100 MG GELCAP PO SCH ×2 (09:45→20:40)
[2019-04-01] MEDS: FUROSEMIDE 20 MG/2 ML VIAL IVP SCH ×2 (09:45→20:41)
[2019-04-01] MEDS: MONTELUKAST SODIUM 10 MG TAB PO SCH (09:45)
[2019-04-01] MEDS: ASPIRIN 81 MG TAB.CHEW PO SCH (09:45)
[2019-04-01] MEDS: FERROUS SULFATE 325 MG TABEC PO SCH ×2 (09:45→20:40)
--- NOTE | 2019-04-01 09:45 | NUR ---
GAVE ORDERED DUE MEDICATIONS AT THIS TIME. PT TOLERATED WELL. RESPIRATIONS EVEN AND UNLABORED. BED IN LOW POSITION. BED ALARM ON. CALL LIGHT AT BEDSIDE. WILL CONTINUE TO MONITOR.
[2019-04-01] MEDS: OSELTAMIVIR PHOSPHATE 75 MG CAP PO SCH ×2 (09:46→20:40)
[2019-04-01] MEDS: NACL 0.45% 1,000 ML IV SCH (09:59)
--- NOTE | 2019-04-01 11:32 | NUR ---
ASSISTED WITH CLEANING AND REPOSITIONING AT THIS TIME. PT TOLERATED WELL BED IN LOW POSITION. BED ALARM ON. CALL LIGHT AT BEDSIDE. WILL CONTINUE TO MONITOR.
--- NOTE | 2019-04-01 11:46 | NUR ---
DC PLANN[age] YRS OLD FEMALE PATIENT WAS ADMITTED FROM HOME WITH A DX OF PNEUMONIA PT HAS A HX OF COPD, CAD AND CHF. CXRAY SHOWED CARDIOMEGALY WITH VASCULAR CONGESTION . STARTED ON IVF, IV LASIX, GRAVURE PRESS OPERATOR CONSULT ,RT PROTOCOL . DC PLAN TO GO HOME WHE STABLE. CM TO FOLLOW
--- NOTE | 2019-04-01 13:46 | NUR ---
TREMAINE PT COUSIN CALLED TO SPEAK TO PT. PT SLEEPING AT THIS TIME. RESPIRATIONS EVEN AND UNLABORED. BED IN LOW POSITION. BED ALARM ON. CALL LIGHT AT BEDSIDE. WILL CONTINUE TO MONITOR.
--- NOTE | 2019-04-01 15:42 | NUR ---
PT WATCHING TV AT THIS TIME. RESPIRATIONS EVEN AND UNLABORED. BED IN LOW POSITION. BED ALARM ON. CALL LIGHT AT BEDSIDE. WILL CONTINUE TO MONITOR.
[2019-04-01 16:00] VITALS: BP 115/63
--- NOTE | 2019-04-01 17:48 | NUR ---
PT EATING DINNER AT THIS TIME. RESPIRATIONS EVEN AND UNLABORED. BED IN LOW POSITION. BED ALARM ON. CALL LIGHT AT BEDSIDE. WILL CONTINUE TO MONITOR.
--- NOTE | 2019-04-01 19:27 | NUR ---
GAVE REPORT TO ADVERTISING ASSOCIATE NURSE CODEY FOR CONTINUITY OF CARE. PT IN STABLE CONDITION.
--- NOTE | 2019-04-01 19:28 | NUR ---
RECEIVED BEDSIDE REPORT FROM DAY RN. PT IS AWAKE WATCHING TV. AAOX3. RESPIRATIONS EVEN AND UNLABORED ON 2L O2 VIA NC. IV ON RAC 22G INTACT AND PATENT IVF PER ORDERS. PT IS ON DROPLET PRECAUTION SIGN AT DOOR. SAFETY MEASURES IN PLACE. BED IN LOW POSITION. BED ALARM ON. POC DISCUSSED WITH PT. CALL LIGHT AT BEDSIDE. WILL CONTINUE TO MONITOR.
[2019-04-01] MEDS: risperiDONE 1 MG TAB PO SCH (20:39)
[2019-04-01] MEDS: SIMVASTATIN 20 MG TAB PO SCH (20:40)
--- NOTE | 2019-04-01 20:41 | NUR ---
VSS, CHRIS MEDICATIONS GIVEN PER ORDERS. PT TOLERATED WELL. ALL SAFETY MEASURES ARE IN PLACE. CALL LIGHT IS WITHIN REACH. WILL CONTINUE TO MONITOR.
--- NOTE | 2019-04-01 22:30 | NUR ---
PATIENT IS SLEEPING COMFORTABLY IN BED. NO S/S OF DISTRESS. CALL LIGHT IS WITHIN REACH. WILL CONTINUE TO MONITOR.
[2019-04-02] VITALS: BP 106/49
--- NOTE | 2019-04-02 00:06 | NUR ---
VITAL SIGNS ARE WITHIN NORMAL LIMITS. NO S/S OF DISTRESS. CALL LIGHT IS WITHIN REACH.
--- NOTE | 2019-04-02 02:21 | NUR ---
PATIENT IS SLEEPING COMFORTABLY IN BED. NO S/S OF DISTRESS. ALL SAFETY MEASURES ARE IN PLACE. CALL LIGHT IS WITHIN NORMAL LIMITS. CALL LIGHT IS WITHIN. WILL CONTINUE TO MONITOR.
--- NOTE | 2019-04-02 04:06 | NUR ---
PT IS SLEEPING COMFORTABLY IN BED. CHEST RISE AND FALL NOTED. NO S/S OF DISTRESS. SAFETY MEASURES ARE IN PLACE.
[2019-04-02] MEDS: NACL 0.45% 1,000 ML IV SCH (06:05)
[2019-04-02 06:58] LABS: BASOPHILS % (AUTO) 0.4 % (0.0-2.0); EOSINOPHILS % (AUTO) 0.3 % (0.0-4.0); HEMATOCRIT 22.8 % (36-48); HEMOGLOBIN 7.5 g/dL (12.0-16.0); LYMPHOCYTES # (AUTO) 0.7 K/uL (2.5-16.5); LYMPHOCYTES % (AUTO) 14.2 % (20.5-51.1); MEAN CORPUSCULAR HEMOGLOBIN 29 pg (27-31); MEAN CORPUSCULAR HGB CONC 33 g/dL (33-37); MEAN CORPUSCULAR VOLUME 87.8 fL (80-94); MONOCYTES # (AUTO) 0.9 K/uL (0.8-1.0); MONOCYTES % (AUTO) 16.8 % (1.7-9.3); NEUTROPHILS # (AUTO) 3.5 K/uL (1.8-7.7); NEUTROPHILS % (AUTO) 68.3 % (42.2-75.2); PLATELET COUNT (AUTO) 222 K/uL (140-450); RED BLOOD CELL COUNT(AUTO) 2.59 MIL/uL (4.20-5.40); RED CELL DISTRIBUTION WIDTH 17.2 % (11.6-13.7); WHITE BLOOD COUNT (AUTO) 5.1 K/uL (4.8-10.8)
[2019-04-02 07:19] LABS: ANION GAP 11.1 (8-16); CARBON DIOXIDE 29.8 mmol/L (21-32); CHLORIDE 106 mmol/L (98-107); CREATININE 1.7 mg/dL (0.6-1.3); GLUCOSE 108 mg/dL (74-106); POTASSIUM 4.9 mmol/L (3.5-5.1); SODIUM SERUM 142 mmol/L (136-145); UREA NITROGEN, BLOOD 35 mg/dL (7-18)
--- NOTE | 2019-04-02 07:35 | NUR ---
GAVE BEDSIDE REPORT TO DAY RN. PT ENDORSED IN STABLE CONDITION.
--- NOTE | 2019-04-02 07:48 | NUR ---
RECEIVED BEDSIDE REPORT FROM APPLIANCE SERVICE TECHNICIAN RN FOR CONTINUITY OF CARE. PT IS AWAKE AND WATCHING TV. AAOX3. RESPIRATIONS EVEN AND UNLABORED ON 2L O2 VIA NC. IV ON RAC 22G INTACT AND PATENT IVF PER ORDERS. PT IS ON DROPLET PRECAUTION DUE TO POSITIVE FOR INFLUENZA. SIGNS POSTED AT DOOR. SAFETY MEASURES IN PLACE. BED IN LOW POSITION. BED ALARM ON. POC DISCUSSED WITH PT AND PT VERBALIZED UNDERSTANDING. CALL LIGHT AT BEDSIDE. BOARD UPDATED. WILL MONITOR PT CLOSELY.
[2019-04-02 08:05] VITALS: BP 112/55
[2019-04-02] MEDS: hydrALAZINE 25 MG TAB PO SCH ×2 (09:00→12:11)
[2019-04-02] MEDS: amLODIPine 5 MG TAB PO SCH (09:00)
[2019-04-02] MEDS: ASPIRIN 81 MG TAB.CHEW PO SCH (09:00)
--- NOTE | 2019-04-02 09:11 | NUR ---
ADMINISTERED MORNING MEDS TO PT. PT TOLERATED WELL. ALL NEEDS MET. WILL CONTINUE TO ROUND FREQUENTLY ON PT. BED IN LOW POSITION, CALL LIGHT WITHIN REACH.
[2019-04-02] MEDS: FUROSEMIDE 20 MG/2 ML VIAL IVP SCH (09:22)
[2019-04-02] MEDS: DOCUSATE SODIUM 100 MG GELCAP PO SCH (09:23)
[2019-04-02] MEDS: OSELTAMIVIR PHOSPHATE 75 MG CAP PO SCH (09:23)
[2019-04-02] MEDS: FERROUS SULFATE 325 MG TABEC PO SCH (09:23)
[2019-04-02] MEDS: ASCORBIC ACID 500 MG TAB PO SCH (09:23)
[2019-04-02] MEDS: CARVEDILOL 6.25 MG TAB PO SCH (09:24)
[2019-04-02] MEDS: POTASSIUM CHLORIDE 10 MEQ TABER PO SCH (09:24)
[2019-04-02] MEDS: MONTELUKAST SODIUM 10 MG TAB PO SCH (09:24)
[2019-04-02] MEDS ORDERED: TAM75 PO ×2 (09:59→14:32)
--- NOTE | 2019-04-02 10:47 | NUR ---
Coloring Checker Note: Patient referred me to speak with her cousin Dana Quesada regarding Important Message from Medicare and Choice Letter. I called and spoke with Dana, I provided her with information on Important Message from Medicare, form in patient's chart. Dana stated their home health preference is [facility], phone number , fax , Choice Letter in chart. Dana told me she is a nurse and is very familiar with Important Message from Medicare and the right to decide which home health company under Medicare guidelines. I called and spoke with Kayla from [facility], phone number , made her aware of referral and faxed referral, fax . I informed Kayla plan is to discharge patient today.
--- NOTE | 2019-04-02 11:47 | NUR ---
PT EATING LUNCH IN BED. FAMILY AT BEDSIDE. ALL NEEDS MET. WILL CONTINUE TO ROUND ON PT.
--- NOTE | 2019-04-02 11:47 | NUR ---
Speech Teacher Note: Per Kayla from [facility], phone number , they can accept referral and will send a nurse to patient's home either tomorrow or 04/04/19. Patient's nurse Mahsa made aware home health services have been arranged.
--- NOTE | 2019-04-02 13:21 | NUR ---
PT SLEEPING. ALL NEEDS MET.
--- NOTE | 2019-04-02 14:50 | NUR ---
PT DISCHARGED HOME FOR CONTINUATION OF CARE WITH HOME HEALTH. DISCUSSED DISCHARGE TEACHING WITH PT AND FAMILY. BOTH VERBALIZED UNDERSTANDING. IV REMOVED WITH TIP INTACT. ALL PERSONAL BELONGINGS TAKEN WITH PT. PT LEFT IN STABLE CONDITION WITH CAREGIVER NIECE AND COUSIN. ID BAND REMOVED AND PLACED IN SHRED BIN.
== END 2019-04-02 14:35 | disposition home health service (06) | DRG 280 ==
LOC: MED 20:45 → MTU 21:24
PROVIDERS: ADMIT General Practice; ATTEND General Practice
DX: I11.0 Hypertensive heart disease with heart failure (principal); I21.A1 Myocardial infarction type 2; N17.0 Acute kidney failure with tubular necrosis; J96.01 Acute respiratory failure with hypoxia; E44.0 Moderate protein-calorie malnutrition; Z68.1 Body mass index [BMI] 19.9 or less, adult; J44.1 Chronic obstructive pulmonary disease with (acute) exacerbation; E87.0 Hyperosmolality and hypernatremia; E85.89 Other amyloidosis; I50.43 Acute on chronic combined systolic (congestive) and diastolic (congestive) heart failure; I25.10 Atherosclerotic heart disease of native coronary artery without angina pectoris; I50.9 Heart failure, unspecified; J10.1 Influenza due to other identified influenza virus with other respiratory manifestations; F03.90 Unspecified dementia, unspecified severity, without behavioral disturbance, psychotic disturbance, mood disturbance, and anxiety; D63.8 Anemia in other chronic diseases classified elsewhere; E87.6 Hypokalemia; D64.9 Anemia, unspecified; Z80.3 Family history of malignant neoplasm of breast; Z96.651 Presence of right artificial knee joint; Z82.49 Family history of ischemic heart disease and other diseases of the circulatory system
CPT/HCPCS: 36415; 36600; 71045; 80048; 80053; 81003; 82150; 82272; 82607; 82728; 82746; 82803; 83540; 83605; 83690; 83735; 83880; 84100; 84439; 84443; 84484; 85025; 85045; 85610; 85730; 87040; 87081; 87086; 87804; 92610; 93005; 94640; 96365; 96375; 97110; 97112; 97116; 97161-GP; 97530; 99285; C1758; J0456; J0696; J1644; J1940; J1956; J2543; J7030; J7060; J7620; Q0092

== ENCOUNTER 2019-11-14 18:30 | Inpatient (IN) | payer OTHER, MEDICAID, SELFPAY ==
[~2019-11-14] VITALS: Ht 167.6 cm; Wt 107.5 kg
[~2019-11-14 18:30] MED LIST changes: -ASCO500T45 PO; +ASCO500T95 PO; -FURO-570 PO; +FURO-572 PO; -LEVA0.6318 INH; +RIS1 PO; -RISP0.5T3 PO; +TAM75 PO; -ZOLP5TAB1 PO
[2019-11-14 18:36] VITALS: BP 164/82
--- NOTE | 2019-11-14 18:41 | NUR ---
73/F BIB FAMILY C/O NONBLOODY DIARRHEA, COCCYX & SHAKEEL LEGS PAIN X UNSPECIFIED AMOUNT OF TIME. DIARRHEA 3X TODAY. DENIES FALL/TRAUMA. NO OBVIOUS DEFORMITIES ON BL LEGS. PT WHEELCHAIR BOUND AT BASELINE. DENIES N/V. CONNECTED TO BEDSIDE MONITOR. BEDRAILS UP X1, BED LOCKED & LOW, ERMD TO EVALUATE. MED HX: DEMENTIA, HTN, COPD
--- NOTE | 2019-11-14 18:42 | NUR ---
DAUGHTER: ROSIBEL TEL [phone]
--- NOTE | 2019-11-14 19:07 | NUR ---
Dr. Wise at bedside.
--- NOTE | 2019-11-14 19:08 | NUR ---
REPORT RECEIVED FROM FIORELLA FRANCISCO FOR CONTINUITY OF CARE
[2019-11-14] MEDS ORDERED: ACETAMINOPHEN EXTRA STRENGTH 500 MG TAB PO ONE (19:15)
--- NOTE | 2019-11-14 19:22 | NUR ---
LAB AT BEDSIDE
--- NOTE | 2019-11-14 19:31 | NUR ---
YURIDIA SWAB DONE AND SENT TO LAB.
--- NOTE | 2019-11-14 19:46 | NUR ---
LAB AT BEDSIDE
[2019-11-14 20:15] LABS: BASOPHILS % (AUTO) 0.6 % (0.0-2.0); EOSINOPHILS # (AUTO) 0.1 K/uL (0-0.4); EOSINOPHILS % (AUTO) 1.4 % (0.0-4.0); HEMATOCRIT 31.4 % (36-48); HEMOGLOBIN 10.4 g/dL (12.0-16.0); LYMPHOCYTES # (AUTO) 0.9 K/uL (2.5-16.5); LYMPHOCYTES % (AUTO) 14.8 % (20.5-51.1); MEAN CORPUSCULAR HEMOGLOBIN 30 pg (27-31); MEAN CORPUSCULAR HGB CONC 33 g/dL (33-37); MEAN CORPUSCULAR VOLUME 89.8 fL (80-94); MONOCYTES # (AUTO) 0.8 K/uL (0.8-1.0); NEUTROPHILS # (AUTO) 4.5 K/uL (1.8-7.7); NEUTROPHILS % (AUTO) 71.2 % (42.2-75.2); PLATELET COUNT (AUTO) 180 K/uL (140-450); RED CELL DISTRIBUTION WIDTH 15.5 % (11.6-13.7); WHITE BLOOD COUNT (AUTO) 6.3 K/uL (4.8-10.8)
[2019-11-14 20:20] LABS: ALBUMIN 2.9 g/dL (3.4-5.0); ANION GAP 10.2 (8-16); ASPARTATE AMINOTRANSFERASE 28 U/L (15-37); CARBON DIOXIDE 26.4 mmol/L (21-32); CHLORIDE 112 mmol/L (98-107); GLUCOSE 109 mg/dL (74-106); POTASSIUM 3.6 mmol/L (3.5-5.1); SODIUM SERUM 145 mmol/L (136-145); TOTAL BILIRUBIN 0.3 mg/dL (0.0-1.0); UREA NITROGEN, BLOOD 38 mg/dL (7-18)
[2019-11-14] MEDS ORDERED: ASPIRIN 325 MG TAB PO ONE (20:50)
--- NOTE | 2019-11-14 21:20 | NUR ---
URINE COLLECTED AND TAKEN TO LAB
[2019-11-14 21:25] LABS: APPEARANCE,URINE CLEAR (CLEAR); BILIRUBIN,URINE NEGATIVE (NEGATIVE); BLOOD, URINE NEGATIVE (NEGATIVE); COLOR,URINE YELLOW (YELLOW); LEUKOCYTE ESTERASE ,URINE NEGATIVE (NEGATIVE); NITRITE, URINE NEGATIVE (NEGATIVE); UGLUCOSE NEGATIVE (NEGATIVE)
[2019-11-14] MEDS ORDERED: HYDR-5122 PO (21:37)
[2019-11-14] MEDS ORDERED: FURO-570 PO (21:37)
[2019-11-14] MEDS ORDERED: ROC.25 PO (21:37)
[2019-11-14] MEDS ORDERED: QUET25TA PO (21:37)
[2019-11-14] MEDS ORDERED: FAMO40PD4 PO (21:37)
[2019-11-14 21:40] LABS: HYALINE CASTS, URINE 0-10 /LPF (None Seen); RBC,URINE 0-5 /HPF (0-5); WBC,URINE 0-5 /HPF (0-5)
[2019-11-14 21:41] LABS: URINE AMORPHOUS URATE 1+ /HPF (None Seen)
[2019-11-14] MEDS ORDERED: ALBU3SOL28 IH (21:52)
[2019-11-14 22:00] VITALS: BP 180/101
--- NOTE | 2019-11-14 22:00 | NUR ---
RECEIVED REPORT FROM ER NURSE, KIMBERLY. PT AOX3 ON ROOM AIR. PT ON TELE. NO S/S RESPIRATORY DISTRESS. NO C/O PAIN AT THIS TIME. SKIN WARM DRY INTACT. BOWEL SOUNDS ACTIVE. IV SITE RAC 20G INTACT AND PATENT. SAFETY, FALLS, ASPIRATION PRECAUTIONS IN PLACE. SIDE RAILS UP X2, BED ON LOW POSITION, HOB 30 DEGREES, CALL LIGHT WITHIN REACH. ORIENTED PT TO ROOM AND HOSPITAL. VS: BP 180/101 HR 73 O2 SAT 98% RR 20 TEMP 98.8. WILL CONTINUE TO MONITOR
--- NOTE | 2019-11-14 22:00 | NUR ---
Patient will be admitted to care of DR PAUL. Admited to TELEMETRY. Will go to room 112B. Belongings list completed. Report to MARZENA FRANCISCO.
[2019-11-14] MEDS ORDERED: NACL 0.9% 1,000 ML IV SCH (22:04)
[2019-11-14] MEDS ORDERED: guaiFENesin DM 200/20 MG-10 ML 10 ML UDC PO PRN (22:05)
[2019-11-14] MEDS ORDERED: ZOLPIDEM 5 MG TAB PO PRN (22:05)
[2019-11-14] MEDS ORDERED: HYDROcodone/APAP 7.5/325 MG 1 TAB PO PRN (22:05)
[2019-11-14] MEDS ORDERED: ONDANSETRON 4 MG/2 ML VIAL IM/IVP PRN (22:05)
[2019-11-14] MEDS ORDERED: ACETAMINOPHEN 325 MG TAB PO PRN (22:05)
[2019-11-14] MEDS ORDERED: POTASSIUM CHLORIDE 10 MEQ TABER PO PRN (22:05)
[2019-11-14] MEDS ORDERED: DOCUSATE SODIUM 100 MG GELCAP PO PRN (22:05)
[2019-11-14] MEDS ORDERED: LOPERAMIDE 2 MG CAP PO PRN (22:20)
[2019-11-14] MEDS ORDERED: ALBUTEROL SULFATE/IPRATROPIU 3 ML SOL IH PRN (22:20)
[2019-11-14] MEDS ORDERED: amLODIPine 5 MG TAB PO SCH (22:25)
[2019-11-14 22:36] LABS: BARBITURATE, URINE NEGATIVE ng/ml (NEG <=200); BENZODIAZEPINE, URINE NEGATIVE ng/mL (NEG <=200); CANNABINOID, URINE NEGATIVE ng/mL (NEG <=50); COCAINE, URINE NEGATIVE ng/mL (NEG <=300); OPIATE, URINE NEGATIVE ng/mL (NEG <=2000); PHENCYCLIDINE SCREEN,URINE NEGATIVE ng/mL (NEG <=25)
[2019-11-14 22:38] LABS: CHOL/HDL RATIO 3.2 (1-4.5); FREE T4 (FREE THYROXINE) 0.96 ng/dL (0.76-1.46); MAGNESIUM 2.1 mg/dL (1.8-2.4); PHOSPHORUS 3.7 mg/dL (2.5-4.9); THYROID STIMULATING HORMONE 2.19 uIU/mL (0.34-3.74)
[2019-11-14] MEDS: hydrALAZINE 25 MG TAB PO SCH (22:52)
--- NOTE | 2019-11-14 22:59 | NUR ---
PT BP 180/101. MD MADE AWARE. ADMINISTERED MEDS ORDERED, TOLERATED WELL. PT HAS NO DISTRESS. WILL CONTINUE TO MONITOR
[2019-11-15] VITALS (7 sets, daily range): BP systolic 104–178; BP diastolic 77–88
--- NOTE | 2019-11-15 01:15 | NUR ---
ASSISTED PT TO BED MAYO. VOIDED CLEAR YELLOW URINE, NO DIARRHEA. NO DISTRESS NOTED. WILL CONTINUE TO MONITOR. CALL LIGHT WITHIN REACH. SAFETY PRECAUTIONS IN PLACE
--- NOTE | 2019-11-15 01:52 | NUR ---
PT BP 148/78 HR 73. NO DISTRESS NOTED. DENIES PAIN, WILL CONTINUE TO MONITOR Addendum: 11/15/19 at 0359 by Satish Tran RN TIME [id number]
--- NOTE | 2019-11-15 03:00 | NUR ---
PT ASLEEP IN BED. RESPIRATIONS EVEN AND UNLABORED. NO S/S DISTRESS NOTED. WILL CONTINUE TO MONITOR
--- NOTE | 2019-11-15 04:45 | NUR ---
CLEANED, TURNED, CHANGED PT, TOLERATED WELL. NO DISTRESS NOTED. WILL CONTINUE TO MONITOR.
[2019-11-15 06:11] LABS: BASOPHILS % (AUTO) 0.5 % (0.0-2.0); EOSINOPHILS # (AUTO) 0.1 K/uL (0-0.4); EOSINOPHILS % (AUTO) 1.9 % (0.0-4.0); HEMATOCRIT 29.8 % (36-48); HEMOGLOBIN 10.2 g/dL (12.0-16.0); LYMPHOCYTES # (AUTO) 1.2 K/uL (2.5-16.5); LYMPHOCYTES % (AUTO) 18.7 % (20.5-51.1); MEAN CORPUSCULAR HEMOGLOBIN 30 pg (27-31); MEAN CORPUSCULAR HGB CONC 34 g/dL (33-37); MEAN CORPUSCULAR VOLUME 88.4 fL (80-94); MONOCYTES # (AUTO) 0.7 K/uL (0.8-1.0); MONOCYTES % (AUTO) 11.9 % (1.7-9.3); NEUTROPHILS # (AUTO) 4.1 K/uL (1.8-7.7); PLATELET COUNT (AUTO) 178 K/uL (140-450); RED BLOOD CELL COUNT(AUTO) 3.37 MIL/uL (4.20-5.40); RED CELL DISTRIBUTION WIDTH 15.3 % (11.6-13.7); WHITE BLOOD COUNT (AUTO) 6.2 K/uL (4.8-10.8)
[2019-11-15 06:21] LABS: ANION GAP 11.9 (8-16); CARBON DIOXIDE 23.4 mmol/L (21-32); CHLORIDE 111 mmol/L (98-107); CREATININE 2.7 mg/dL (0.6-1.3); GLUCOSE 84 mg/dL (74-106); POTASSIUM 3.3 mmol/L (3.5-5.1); SODIUM SERUM 143 mmol/L (136-145); UREA NITROGEN, BLOOD 36 mg/dL (7-18)
--- NOTE | 2019-11-15 07:15 | NUR ---
RECEIVED REPORT FROM NOC SHIFT RN. PT IS STABLE IN NO DISTRESS, ABLE TO COMMUNICATE APPROPRIATELY. SAFETY MEASURES IN PLACE. WILL CONTINUE WITH POC.
--- NOTE | 2019-11-15 07:15 | NUR ---
ENDORSED PT TO DAY RN FOR CONTINUITY OF CARE. PT IS IN STABLE CONDITION
[2019-11-15] MEDS: hydrALAZINE 25 MG TAB PO SCH ×3 (08:08→21:00)
[2019-11-15] MEDS: PANTOPRAZOLE 40 MG TABEC PO SCH (08:08)
--- NOTE | 2019-11-15 08:20 | NUR ---
PT IS AWAKE AND ORIENTED X 4 ABLE TO COMMUNICATE EFFECTIVELY HAS LOUD TONE. PLEASANT AND COOPERATIVE. IN NO DISTRESS. PT TOLERATED PO MEDICATIONS LUNG SOUNDS ARE CLEAR ABDOMEN IS FLAT SOFT AND NON-TENDER NO EPISODES OF DIARRHEA DENIES ANY DISCOMFORT. ATE ABOUT 50% OF BREAKFAST. V/S: 97.6, 72, 18, 165/80, 98% RA. CONTINUES TO RECEOIVE IVF NS AT 45 WITH NO ISSUES. IV SITE PATENT AND INTACT. RECEIVED PHONE CALL OF ELEVATED TROPONIN LEVEL 0.291 WHICH IS UP FROM YESTERDAY (0.279). DR. PAUL NOTIFIED. PT ALSO RECEIVED K-DUR FOR K LEVEL OF 3.3 PER STANDING ORDER. PT ASSISTED WITH BEDPAN VOIDED X 1. SAFETY MEASURE IN PLACE.
[2019-11-15] MEDS ORDERED: FUROSEMIDE 20 MG/2 ML VIAL IVP SCH (09:30)
--- NOTE | 2019-11-15 09:40 | NUR ---
PATIENT HAS BEEN SCREENED AND CATEGORIZED HIGH NUTRITION RISK. PATIENT WILL BE SEEN WITHIN 1-2 DAYS OF ADMISSION. 11/15/19 - 11/16/19 MALACHI HERNANDEZ MBA, RD
[2019-11-15] MEDS: ALBUTEROL SULFATE/IPRATROPIU 3 ML SOL IH SCH ×3 (09:56→19:00)
--- NOTE | 2019-11-15 10:36 | NUR ---
PT ASSISTED WITH BEDPAN, VOIDED X 1 DENIES ANY DISTRESS. STILL NO BM FOR C.DIFF COLLECTION.
[2019-11-15] MEDS ORDERED: POTASSIUM CHLORIDE 40 MEQ, LIDOCAINE MPF 1% 25 MG in NACL 0.9% 250 ML IV ONE (10:45)
--- NOTE | 2019-11-15 10:58 | NUR ---
ENVIRONMENTAL COMPLIANCE TECHNICIAN NOTE: Patient's Orientation Unable To Assess Information Provided By ROSIBEL VIDAL - COUSIN Comments SW WAS UNABLE TO MEET PATIENT AT BEDSIDE DUE TO MEDICAL CONDITION. SW COMPLETED ASSESSMENT WITH PATIENT'S COUSIN, ROSIBEL VIDAL. Epic Professional, Realtionship and Phone Number ROSIBEL VIDAL COUSIN [phone] Healthcare Power of Nurses Medical Assistants Phlebotomists No Does Patient Have a POLST No Is A Social Work Consult Needed No Mandate Report Filed No Explanation Of Identifying Problems PATIENT IS A 73-YEAR-OLD FEMALE ADMITTED FOR WEAKNESS. PATIENT HAS PMHX OF CARDIAC DISORDERS, COPD, AND HYPERTENSION. Admitted From Home Pre-Admission Level Of Functioning Status Total Care Level Of Functioning Comment PER ROSIBEL, PATIENT REQUIRES TOTAL CARE WITH ADLS. Prior Resources/Services Used In Last 12 Months [facility] Prior Resources/Service Comments PATIENT RECEIVES 185 HOURS MONTHLY FROM [facility]. Prior DME Walker Wheelchair Dialysis Comments ROSIBEL REPORTED THAT PATIENT DOES NOT RECEIVE DIALYSIS. Living Situation Lives With Family House Patient Had Caregiver Yes Name and Contact Number Of Designated Caregiver MISS BUCIO Explanation Of Home Support PATIENT RECEIVES 185 HOURS FROM [facility]. PER ROSIBEL, SHE DOES NOT HAVE CAREGIVER'S FIRST NAME OR CONTACT INFORMATION. Financial Issues No Known Financial Issue Referral To The Financial Counselor Needed No Factors/Needs No D/C Needs Identified Pt/Rep Participated In Discharge Plan Yes Patient/Family Agress With Discharge Plan Yes Discharge Plan Comments TENTATIVE DISCHARGE PLAN IS FOR PATIENT TO RETURN HOME. DC Plan Status Initiated
[2019-11-15] MEDS: NIFEdipine 30 MG TABER PO SCH (11:17)
--- NOTE | 2019-11-15 12:40 | NUR ---
PT HAS MOMENTS OF YELLING HOWEVER NOT AGITATED AND REDIRECTABLE. TOLERATING PO MEDICATION WELL WAS GIVEN NEW ORDER OF LASIX WITH NO ISSUES. 97.8, 69, 18, 178/86, 98% RA PAIN 0/10.
[2019-11-15] MEDS ORDERED: HYDRALAZINE HCL 100 MG PO SCH (13:00)
[2019-11-15] MEDS: CALCITONIN INJ 200 IU/ML VIAL SUBQ SCH (13:16)
[2019-11-15] MEDS: SPIRONOLACTONE 25 MG TAB PO SCH (13:19)
--- NOTE | 2019-11-15 14:25 | NUR ---
PROVISION OF CARE PROVIDED PT HAD EPISODE OF INCONTINENCE X 1 PRIOR TO THAT USE BEDPAN X 1 AND UA SPECIMEN WAS COLLECTED AND ROUTED TO LABS ALL NEEDS MET.
--- NOTE | 2019-11-15 16:20 | NUR ---
PROVISION OF CARE PROVIDED INCONTINENCE X 1 TOLERATING PO MEDICATION V/S: 97.6, 80, 18, 159/81, 95% RA. PAIN 0/10. ALL NEEDS MET.
[2019-11-15] MEDS: ATORVASTATIN 20 MG TAB PO SCH (16:50)
--- NOTE | 2019-11-15 18:39 | NUR ---
ATE 50% OF DINNER, COOPERATIVE ASSISTED WITH BEDPAN VOIDED WITH NO PROBLEMS. IN NO DISTRESS.
--- NOTE | 2019-11-15 19:20 | NUR ---
RECEIVED REPORT FROM DAY RN. PT AOX4 ON ROOM AIR. NO S/S RESPIRATORY DISTRESS. NO C/O PAIN AT THIS TIME. IV SITE RAC 20G, PATENT AND INTACT, RUNNING NS AT 5 ML/HR. SKIN WARM DRY AND INTACT. BOWEL SOUNDS ACTIVE. SAFETY MEASURES IN. CALL LIGHT WITHIN REACH. WILL CONTINUE TO MONITOR
--- NOTE | 2019-11-15 19:20 | NUR ---
PT ENDORSED TO NOC SHIFT RN FOR CONTINUITY OF CARE. PT IS STABLE IN NO DISTRESS. LAYING IN BED.
[2019-11-15] MEDS: QUEtiapine FUMARATE 25 MG TAB PO SCH (20:37)
[2019-11-15] MEDS: MEGESTROL 40 MG TAB PO SCH (20:37)
[2019-11-15] MEDS: FUROSEMIDE 20 MG/2 ML VIAL IVP SCH (21:22)
[2019-11-15] MEDS: carvediloL 6.25 MG TAB PO SCH (21:22)
--- NOTE | 2019-11-15 21:22 | NUR ---
PT BP 173/78 HR 79. ADMINISTERED SCHEDULED MEDS. PROVIDED MEDICATION EDUCATION. PT VERBALIZED UNDERSTANDING. PT TOLERATED WELL. NO DISTRESS NOTED. SAFETY MEASURES IN PLACE. WILL CONTINUE TO MONITOR
--- NOTE | 2019-11-15 21:23 | NUR ---
PT REFUSED HYDRALAZINE. EDUCATED PT ON RISK AND BENEFITS OF MEDICATION. PT STILL REFUSED. WILL CONTINUE TO MONITOR
[2019-11-15 21:36] LABS: URINE TOTAL PROTEIN 254.5 mg/dL (0-12)
--- NOTE | 2019-11-16 | NUR ---
PT REFUSED SCHEDULED MEDICATION, CALCITONIN. EDUCATED PT ON RISK AND BENEFITS OF MEDICATION. PT STILL REFUSED. PT WISHES TO SLEEP AND NOT BE WOKEN UP AND BOTHERED. WILL CONTINUE TO MONITOR
--- NOTE | 2019-11-16 01:05 | NUR ---
PT ASLEEP IN BED. RESPIRATIONS EVEN AND UNLABORED. WILL CONTINUE TO MONITOR
--- NOTE | 2019-11-16 03:26 | NUR ---
PT ASLEEP IN BED. NO DISTRESS NOTED. WILL CONTINUE TO MONITOR
--- NOTE | 2019-11-16 03:45 | NUR ---
ASSISTED PT TO BED MAYO, VOIDED CLEAR YELLOW URINE. CHANGED AND CLEANED AND TURNED PT. NO DIARRHEA. TOLERATED WELL. WILL CONTINUE TO MONITOR
--- NOTE | 2019-11-16 04:00 | NUR ---
PT REFUSED TO BE PUT ON TELE MONITOR. PT STATES, "LEAVE ME ALONE". WILL CONTINUE TO MONITOR
[2019-11-16] MEDS: hydrALAZINE 25 MG TAB PO SCH ×3 (05:00→20:41)
--- NOTE | 2019-11-16 06:30 | NUR ---
LAB CALLED. PT REFUSED TO GET LABS DRAWN. EDUCATED THE PATIENT ON MONITORING AND IMPORTANCE OF LABS. PT STILL REFUSED. WILL CONTINUE TO MONITOR
[2019-11-16] MEDS ORDERED: POTASSIUM CHLORIDE 40 MEQ, LIDOCAINE MPF 1% 25 MG in NACL 0.9% 250 ML IV PRN (07:00)
[2019-11-16] MEDS: ALBUTEROL SULFATE/IPRATROPIU 3 ML SOL IH SCH ×3 (07:31→20:34)
--- NOTE | 2019-11-16 07:35 | NUR ---
ENDORSED PT TO DAY RN FOR CONTINUITY OF CARE. PT IS IN STABLE CONDITION
--- NOTE | 2019-11-16 07:36 | NUR ---
RECEIVED REPORT FROM CERTIFIED MEDICATION TECHNICIAN RN FOR CONTINUITY OF CARE. PATIENT IS AAOX3, WITH OCCASIONAL CONFUSION DUE TO DEMENTIA. RT IS WITH THE PATENT, BREATHING TREATMENT. NO RESPIRATORY DISTRESS NOTED AT THIS TIME. SKIN INTACT. WARM AND DRY. IV SITE RIGHT AC 20G NOTED, INTACT. PATIENT REFUSED BLOOD DRAW THIS MORNING. SAFETY MEASURES IN PLACE, CALL LIGHT WITHIN REACH. WILL CONTINUE TO MONITOR.
[2019-11-16 08:00] VITALS: BP 150/77
[2019-11-16 08:08] LABS: T4 (THYROXINE) 7.1 ug/dL (4.5-12.0)
--- NOTE | 2019-11-16 08:51 | NUR ---
DC PLANNIN YRS OLD FEMALE PATIENT WAS ADMITTED FROM HOME WITH A DX OF WEAKNESS, ACUTE RENAL INSUFFICIENCY, HYPERCALCEMIA ,CHRONIC ELEVATED TROPONIN. PT HAS A HX OF DEMENTIA , HTN, CAD AND COPD. CXR SHOWED CARDIOMEGALY WITH PULMONARY VASCULAR CONGESTION. ARTERIAL BILATERAL LOWER EXTREMITY SHOWED CALCIFICATION IS SEEN IN THE LEFT POPLITEAL ARTERY. VENOUS DOPPLER SHOWED NEGATIVE FOR DVT. COVID TEST AND INFLUENZA A&B NEGATIVE. STARTED ON LASIX , CHF PROTOCOL INITIATED ,TYPESETTER APPRENTICE CONSULT AND CONTINUED HOME MEDS . DC PLAN TO GO HOME WHEN STABLE CM TO FOLLOW. Addendum: 11/18/19 at 1102 by Ciera Maynard CM DC RISK CONSULTANT: RECEIVED ORDER FOR PATIENT TO DC TO SNF FOR PT/REHAB. SPOKE TO PATIENTS FAMILY MEMBER ROSIBEL VIDAL [phone] TO DISCUSS DC TO SNF. SHE REFUSES PATIENT TO GO TO SNF AND WILL TAKE CARE OF HER AT HOME. THEY ALREADY HAVE A HOME HEALTH AGENCY WHO COMES OUT AND ASSISTS THE PATIENT. THE NAME OF THE HOME HEALTH AGENCY IS [facility]. NOTIFIED DR. PAUL. PATIENT'S FAMILY MEMBER ROSIBEL STATED THAT SHE IS ABLE TO [employer]GE[employer] THE PATIENT.
[2019-11-16] MEDS ORDERED: FUROSEMIDE 40 MG TAB PO SCH (09:00)
[2019-11-16] MEDS ORDERED: amLODIPine 5 MG TAB PO SCH (09:00)
[2019-11-16] MEDS: lisinopriL 20 MG TAB PO SCH (09:55)
[2019-11-16] MEDS: NIFEdipine 30 MG TABER PO SCH (09:55)
[2019-11-16] MEDS: carvediloL 6.25 MG TAB PO SCH ×2 (09:55→20:41)
[2019-11-16] MEDS: PANTOPRAZOLE 40 MG TABEC PO SCH (09:55)
[2019-11-16] MEDS: SPIRONOLACTONE 25 MG TAB PO SCH (09:55)
[2019-11-16] MEDS: FUROSEMIDE 20 MG/2 ML VIAL IVP SCH (09:55)
[2019-11-16] MEDS: MEGESTROL 40 MG TAB PO SCH ×2 (09:55→20:41)
[2019-11-16] MEDS: QUEtiapine FUMARATE 25 MG TAB PO SCH ×2 (09:55→20:42)
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
--- NOTE | 2019-11-16 10:35 | NUR ---
ENDORSED PATIENT TO RN HELEN FOR CONTINUITY OF CARE.
[2019-11-16 11:45] LABS: BASOPHILS % (AUTO) 0.5 % (0.0-2.0); EOSINOPHILS # (AUTO) 0.1 K/uL (0-0.4); EOSINOPHILS % (AUTO) 1.3 % (0.0-4.0); HEMATOCRIT 33.5 % (36-48); HEMOGLOBIN 11.2 g/dL (12.0-16.0); LYMPHOCYTES # (AUTO) 0.8 K/uL (2.5-16.5); LYMPHOCYTES % (AUTO) 12.9 % (20.5-51.1); MEAN CORPUSCULAR HEMOGLOBIN 30 pg (27-31); MEAN CORPUSCULAR HGB CONC 33 g/dL (33-37); MEAN CORPUSCULAR VOLUME 88.3 fL (80-94); MONOCYTES # (AUTO) 0.6 K/uL (0.8-1.0); MONOCYTES % (AUTO) 8.8 % (1.7-9.3); NEUTROPHILS # (AUTO) 4.8 K/uL (1.8-7.7); NEUTROPHILS % (AUTO) 76.5 % (42.2-75.2); PLATELET COUNT (AUTO) 204 K/uL (140-450); RED BLOOD CELL COUNT(AUTO) 3.79 MIL/uL (4.20-5.40); RED CELL DISTRIBUTION WIDTH 15.2 % (11.6-13.7); WHITE BLOOD COUNT (AUTO) 6.3 K/uL (4.8-10.8)
[2019-11-16] MEDS: CALCITONIN INJ 200 IU/ML VIAL SUBQ SCH ×2 (11:53)
[2019-11-16 12:00] VITALS: BP 145/80
[2019-11-16 12:29] LABS: CARBON DIOXIDE 25.1 mmol/L (21-32); CHLORIDE 107 mmol/L (98-107); CREATININE 2.9 mg/dL (0.6-1.3); GLUCOSE 89 mg/dL (74-106); POTASSIUM 4.1 mmol/L (3.5-5.1); SODIUM SERUM 140 mmol/L (136-145); UREA NITROGEN, BLOOD 33 mg/dL (7-18)
--- NOTE | 2019-11-16 12:30 | NUR ---
DUE MEDS GIVEN. TOLERATED MEDS WELL
--- NOTE | 2019-11-16 13:33 | NUR ---
11/16/19 RD INITIAL ASSESSMENT COMPLETED PLEASE REFER TO NUTRITION ASSESSMENT UNDER CARE ACTIVITY FOR ESTIMATED NUTRITIONAL NEEDS. 1. RECOMMEND CARDIAC MECHANICAL DIET TOLERATED 2. RECOMMEND ENSURE BID 3. ENCOURAGE PO INTAKE AND PROVIDE ASSISTANCE WITH MEALS 4. RD TO FOLLOW-UP 2-3 DAYS, HIGH RISK JUAN KAT, RD
--- NOTE | 2019-11-16 15:15 | NUR ---
PT ASLEEP IN BED. FLACC 0, NO SOB, NO S/S OF DISTRESS
[2019-11-16 16:00] VITALS: BP 149/67
[2019-11-16] MEDS: ATORVASTATIN 20 MG TAB PO SCH (16:54)
--- NOTE | 2019-11-16 17:15 | NUR ---
IV INFILTRATED. REMOVED IV WITH LUMEN INTACT. ATTEMPTED TO REINSERT 3X BUT WAS UNABLE. WILL ASK FOR ER NURSE TO REINSERT
--- NOTE | 2019-11-16 18:50 | NUR ---
PT ASLEEP IN BED. FLACC 0, NO SOB, NO S/S OF DISTRESS
--- NOTE | 2019-11-16 19:30 | NUR ---
RECEIVED REPORT FROM HELEN RN DAYSHIFT NURSE AT BEDSIDE FOR CONTINUITY OF CARE, PT IN STABLE CONDITION.
--- NOTE | 2019-11-16 19:30 | NUR ---
RECEIVED REPORT AT BEDSIDE FORM MARYAM CERVANTES DAYSHIFT NURSE FOR CONTINUITY OF CARE, PT IN STABLE CONDITION.
--- NOTE | 2019-11-16 20:00 | NUR ---
PT IN BED AOX2-3, SHE IS AWAKE AND ALERT ON ROOM AIR WITH C/O OF PAIN OR DISTRESS NOTED. PT SKIN INTACT AND LACKS IV SITE. PT ON FALLS PRECAUTIONS. V/S FOLLOWS: T 98.7 P 60 R 20 B/P 155/77 02 98% ON ROOM AIR. ALL REQUESTED NEEDS ATTENDED BY STAFF.
--- NOTE | 2019-11-16 21:30 | NUR ---
PT WAS GIVEN ORDERED AND SCHEDULED MEDS AT THIS TIME, EXCEPT FOR IV LASIX DUE TO NO IV SITE. IV SITE ATTEMPTED BUT UNSUCCESSFUL. ALL REQUESTED NEEDS ATTENDED BY STAFF AND ALL FALL PRECAUTIONS IN PLACE.
[2019-11-17] VITALS: BP 123/65
--- NOTE | 2019-11-17 | NUR ---
INFORMED MD PAUL THAT PT WAS UNABLE TO RECEIVE ORDERED LASIX IVP BECAUSE PT HAD NO IV ACCESS. PT NOW HAS A NEW IV RAC 22G INTACT AND ASYMPTOMATIC. SAID OK TO GIVE, WELL 0500 HYDRALAZINE WITH PARAMETERS TO HOLD IF SPB IS 110 OR UNDER OR IF DIASTOLIC IS UNDER 75. LASIX GIVEN IV WELL ORDERED AND SCHEDULED MIDNIGHT MEDS. ALL REQUESTED NEEDS ATTENDED STAFF: V/S FOLLOWS: T 97.9 P 59 R 18 B/P 123/65 02 100% ON ROOM AIR.
[2019-11-17] MEDS: ALBUTEROL SULFATE/IPRATROPIU 3 ML SOL IH SCH ×4 (00:35→19:51)
--- NOTE | 2019-11-17 00:36 | NUR ---
PT WAS SLEEPING AND REFUSED Tx NO DISTRESS NOTED PT ON RA
[2019-11-17] MEDS: FUROSEMIDE 20 MG/2 ML VIAL IVP SCH ×2 (00:57→09:42)
[2019-11-17] MEDS: CALCITONIN INJ 200 IU/ML VIAL SUBQ SCH ×2 (00:57→12:00)
--- NOTE | 2019-11-17 02:00 | NUR ---
PT WAS ASSISTED WITH BED MAYO REQUESTED NO SOB, PAIN OR DISTRESS NOTED. ALL FALLS PRECAUTIONS IN PLACE.
[2019-11-17 04:00] VITALS: BP 140/69
[2019-11-17] MEDS: hydrALAZINE 25 MG TAB PO SCH ×3 (05:46→21:16)
--- NOTE | 2019-11-17 07:20 | NUR ---
RECEIVED BEDSIDE REPORT FROM NIGHTSHIFT NURSE. PT RESTING IN BED. ABLE TO MAKE NEEDS KNOWN. RESPIRATIONS EVEN AND UNLABORED WITH NO SOB OR RESPIRATORY DISTRESS. SKIN WARM AND DRY TO TOUCH. IV SITE IN RAC 20G IS CLEAN, DRY, AND INTACT. SAFETY MEASURES IN PLACE. WILL CONTINUE TO MONITOR
[2019-11-17 07:28] LABS: ANION GAP 12.3 (8-16); CARBON DIOXIDE 25.6 mmol/L (21-32); CHLORIDE 107 mmol/L (98-107); CREATININE 2.9 mg/dL (0.6-1.3); GLUCOSE 86 mg/dL (74-106); POTASSIUM 3.9 mmol/L (3.5-5.1); SODIUM SERUM 141 mmol/L (136-145); UREA NITROGEN, BLOOD 30 mg/dL (7-18)
[2019-11-17 07:37] LABS: BASOPHILS # (AUTO) 0.1 K/uL (0.00-0.22); BASOPHILS % (AUTO) 1.3 % (0.0-2.0); EOSINOPHILS # (AUTO) 0.1 K/uL (0-0.4); EOSINOPHILS % (AUTO) 2.2 % (0.0-4.0); HEMATOCRIT 33.8 % (36-48); HEMOGLOBIN 11.5 g/dL (12.0-16.0); LYMPHOCYTES # (AUTO) 1.1 K/uL (2.5-16.5); LYMPHOCYTES % (AUTO) 20.4 % (20.5-51.1); MEAN CORPUSCULAR HEMOGLOBIN 30 pg (27-31); MEAN CORPUSCULAR HGB CONC 34 g/dL (33-37); MEAN CORPUSCULAR VOLUME 88.2 fL (80-94); MONOCYTES # (AUTO) 0.6 K/uL (0.8-1.0); MONOCYTES % (AUTO) 12.2 % (1.7-9.3); NEUTROPHILS # (AUTO) 3.3 K/uL (1.8-7.7); NEUTROPHILS % (AUTO) 63.9 % (42.2-75.2); PLATELET COUNT (AUTO) 205 K/uL (140-450); RED BLOOD CELL COUNT(AUTO) 3.83 MIL/uL (4.20-5.40); RED CELL DISTRIBUTION WIDTH 15.5 % (11.6-13.7); WHITE BLOOD COUNT (AUTO) 5.2 K/uL (4.8-10.8)
[2019-11-17 08:00] VITALS: BP 133/61
[2019-11-17] MEDS: PANTOPRAZOLE 40 MG TABEC PO SCH (09:40)
[2019-11-17] MEDS: SPIRONOLACTONE 25 MG TAB PO SCH (09:40)
[2019-11-17] MEDS: QUEtiapine FUMARATE 25 MG TAB PO SCH ×2 (09:40→21:15)
[2019-11-17] MEDS: lisinopriL 20 MG TAB PO SCH (09:41)
[2019-11-17] MEDS: MEGESTROL 40 MG TAB PO SCH ×2 (09:41→21:15)
[2019-11-17] MEDS: carvediloL 6.25 MG TAB PO SCH ×2 (09:41→21:15)
[2019-11-17] MEDS: NIFEdipine 30 MG TABER PO SCH (09:42)
--- NOTE | 2019-11-17 09:51 | NUR ---
ADMINISTERED SCHED MED PRESCRIBED PER MD ORDER. PT TOLERATED WELL. MEDICATION EDUCATION PERFORMED. PT VERBALIZED UNDERSTANDING. SAFETY MEASURES IN PLACE. WILL CONTINUE TO MONITOR
--- NOTE | 2019-11-17 11:15 | NUR ---
PT RESTING IN BED. ABLE TO MAKE NEEDS KNOWN. RESPIRATIONS EVEN AND UNLABORED WITH NO SOB OR RESPIRATORY DISTRESS. SKIN WARM AND DRY TO TOUCH. SAFETY MEASURES IN PLACE. WILL CONTINUE TO MONITOR
[2019-11-17 12:00] VITALS: BP 130/74
--- NOTE | 2019-11-17 13:32 | NUR ---
ADMINISTERED SCHED MED PRESCRIBED PER MD ORDER. PT TOLERATED WELL. MEDICATION EDUCATION PERFORMED. PT VERBALIZED UNDERSTANDING. SAFETY MEASURES IN PLACE. WILL CONTINUE TO MONITOR
--- NOTE | 2019-11-17 16:00 | NUR ---
PT REFUSED TO HAVE VITAL SIGNS TAKEN. PT BECAME COMBATIVE AND SWUNG HER ARMS AT STAFF. MD AND CHARGE ARE AWARE. SAFETY MEASURES IN PLACE. WILL CONTINUE TO MONITOR
[2019-11-17] MEDS: ATORVASTATIN 20 MG TAB PO SCH (17:15)
--- NOTE | 2019-11-17 17:15 | NUR ---
ADMINISTERED SCHED MED PRESCRIBED PER MD ORDER. PT TOLERATED WELL. MEDICATION EDUCATION PERFORMED. PT VERBALIZED UNDERSTANDING. SAFETY MEASURES IN PLACE. WILL CONTINUE TO MONITOR
--- NOTE | 2019-11-17 19:46 | NUR ---
ENDORSED AT BEDSIDE TO CHARGE NURSE. PT IS STABLE.
--- NOTE | 2019-11-17 19:55 | NUR ---
RECEIVED REPORT FROM AM SHIFT. PT SEEN AND ASSESSED. FOUND PT ON ROOM AIR WITH SPO2 OF 97%. PT IS IN NO APPARENT RESPIRATORY DISTRESS AT THIS TIME. HHN TX GIVEN ORDERED AND PT TOLERATED TX WELL WITH NO ADVERSE REACTION. WILL CONTINUE TO MONITOR PT.
[2019-11-17 20:00] VITALS: BP 121/60
--- NOTE | 2019-11-17 20:18 | NUR ---
RECEIVED ENDORSEMENT REPORT FROM NURSE LOJA. PT IS STABLE, RESTING COMFORTABLY IN BED. IN NO ACUTE DISTRESS, NO SOB, NO PAIN/DISCOMFORT NOTED AT THIS TIME. NOTED IV SALINE LOCK ON RAC G2O. PATENT AND FLUSHED. SAFETY MEASURES IN PLACED, BED IN LOWEST POSITION. SIDERAILS UP X2. CALL LIGHT WITHIN REACH. WILL CONTINUE TO MONITOR.
--- NOTE | 2019-11-17 21:15 | NUR ---
PT IN BED RESTING, SCHEDULED MEDS GIVEN PER ORDER, TOLERATED WELL. SAFETY MEASURES IN PLACED. CALL LIGHT WITHIN REACH. WILL CONTINUE TO MONITOR.
--- NOTE | 2019-11-17 23:15 | NUR ---
PT IS LYING IN BED, CONSTANTLY YELLING RANDOM WORDS. PT IS IRRITABLE, YELLING AT NURSES AND ALSO ASKING FOR HELP BUT COULD NOT REALLY STATE WHAT SHE REALLY NEEDED HELP FOR. SAFETY MEASURES IN PLACED. CALL LIGHT WITHIN REACH. WILL CONTINUE TO MONITOR.
[2019-11-18] VITALS: BP 137/70
[2019-11-18] MEDS: CALCITONIN INJ 200 IU/ML VIAL SUBQ SCH (00:12)
--- NOTE | 2019-11-18 00:21 | NUR ---
PT COMPLAINED THAT SHE CAN'T SLEEP AND ASKED FOR SOMETHING TO HELP HER GO TO SLEEP. ADMINISTERED AMBIEN PRN ORDERED. WILL CONTINUE TO MONITOR.
[2019-11-18] MEDS: ALBUTEROL SULFATE/IPRATROPIU 3 ML SOL IH SCH ×3 (00:22→13:00)
--- NOTE | 2019-11-18 00:30 | NUR ---
HHN TX GIVEN ORDERED AND PT TOLERATED TX WELL WITH NO ADVERSE REACTION. PT IS IN NO RESPIRATORY DISTRESS AT THIS TIME. WILL CONTINUE TO MONITOR PT.
--- NOTE | 2019-11-18 02:21 | NUR ---
PT IS COMFORTABLY SLEEPING IN BED. NO ACUTE DISTRESS, NO SOB NOTED. RESPIRATIONS EQUAL. SAFETY MEASURES IN PLACED. WILL CONTINUE TO MONITOR.
[2019-11-18 04:00] VITALS: BP 135/69
--- NOTE | 2019-11-18 04:21 | NUR ---
PT IS CALMER AT THIS TIME, VS TAKEN AND IS STABLE, WNL. AFEBRILE. KEPT CLEAN AND DRY. SAFETY MEASURES IN PLACED. WILL CONTINUE TO MONITOR.
[2019-11-18] MEDS: hydrALAZINE 25 MG TAB PO SCH ×3 (05:16→14:59)
[2019-11-18 06:14] LABS: BASOPHILS % (AUTO) 0.8 % (0.0-2.0); EOSINOPHILS # (AUTO) 0.1 K/uL (0-0.4); EOSINOPHILS % (AUTO) 1.3 % (0.0-4.0); HEMATOCRIT 31.5 % (36-48); HEMOGLOBIN 10.9 g/dL (12.0-16.0); LYMPHOCYTES # (AUTO) 1.1 K/uL (2.5-16.5); LYMPHOCYTES % (AUTO) 19.6 % (20.5-51.1); MEAN CORPUSCULAR HEMOGLOBIN 30 pg (27-31); MEAN CORPUSCULAR HGB CONC 35 g/dL (33-37); MEAN CORPUSCULAR VOLUME 88.2 fL (80-94); MONOCYTES # (AUTO) 0.8 K/uL (0.8-1.0); MONOCYTES % (AUTO) 13.7 % (1.7-9.3); NEUTROPHILS # (AUTO) 3.6 K/uL (1.8-7.7); NEUTROPHILS % (AUTO) 64.6 % (42.2-75.2); PLATELET COUNT (AUTO) 183 K/uL (140-450); RED BLOOD CELL COUNT(AUTO) 3.57 MIL/uL (4.20-5.40); RED CELL DISTRIBUTION WIDTH 15.4 % (11.6-13.7); WHITE BLOOD COUNT (AUTO) 5.6 K/uL (4.8-10.8)
--- NOTE | 2019-11-18 06:21 | NUR ---
PT RESTING IN BED QUIETLY. NO DISTRESS, NO PAIN/DISCOMFORT NOTED. ALL NEEDS ATTENDED. SAFETY MEASURES IN PLACED. WILL CONTINUE TO MONITOR.
[2019-11-18 06:36] LABS: ALBUMIN 3.2 g/dL (3.4-5.0); ANION GAP 11.7 (8-16); ASPARTATE AMINOTRANSFERASE 32 U/L (15-37); CARBON DIOXIDE 27.1 mmol/L (21-32); CHLORIDE 106 mmol/L (98-107); CREATININE 3.1 mg/dL (0.6-1.3); GLUCOSE 79 mg/dL (74-106); POTASSIUM 3.8 mmol/L (3.5-5.1); SODIUM SERUM 141 mmol/L (136-145); TOTAL BILIRUBIN 0.4 mg/dL (0.0-1.0); UREA NITROGEN, BLOOD 31 mg/dL (7-18)
--- NOTE | 2019-11-18 07:34 | NUR ---
PT ENDORSED TO AM SHIFT NURSE IN STABLE CONDITION, FOR CONTINUITY OF CARE.
--- NOTE | 2019-11-18 07:35 | NUR ---
RECEIVED REPORT FROM TRAM OPERATOR NURSE KISHA-MARYAM. PT RESTING IN BED, AOX2/3-CONFUSION, ON ROOM AIR WITH RIGHT AC #20G/SL. DISCUSSED PLAN OF CARE AND PT VERBALIZED UNDERSTANDING. CALL LIGHT WITHIN REACH. NO S/S OF RESPIRATORY DISTRESS OR DISCOMFORT NOTED AT THIS TIME. WILL CONTINUE TO MONITOR.
[2019-11-18 08:00] VITALS: BP 147/71
--- NOTE | 2019-11-18 09:10 | NUR ---
AM BREATHING TX OMITTED DUE TO HIGHER CLINICAL PRIORITY. NO RESPIRATORY DISTRESS NOTED.
[2019-11-18] MEDS: lisinopriL 20 MG TAB PO SCH (09:52)
[2019-11-18] MEDS: NIFEdipine 30 MG TABER PO SCH (09:52)
[2019-11-18] MEDS: carvediloL 6.25 MG TAB PO SCH (09:52)
[2019-11-18] MEDS: MEGESTROL 40 MG TAB PO SCH (09:52)
[2019-11-18] MEDS: QUEtiapine FUMARATE 25 MG TAB PO SCH (09:53)
[2019-11-18] MEDS: FUROSEMIDE 20 MG/2 ML VIAL IVP SCH (09:53)
[2019-11-18] MEDS: SPIRONOLACTONE 25 MG TAB PO SCH (09:53)
[2019-11-18] MEDS: PANTOPRAZOLE 40 MG TABEC PO SCH (09:53)
--- NOTE | 2019-11-18 09:54 | NUR ---
SCHEDULED MEDICATIONS GIVEN AND TOLERATED WELL. CALL LIGHT WITHIN REACH. NO S/S OF RESPIRATORY DISTRESS OR DISCOMFORT NOTED AT THIS TIME. WILL CONTINUE TO MONITOR.
--- NOTE | 2019-11-18 11:56 | NUR ---
11/18/19 RD FOLLOW UP COMPLETED PLEASE REFER TO NUTRITION ASSESSMENT UNDER CARE ACTIVITY FOR ESTIMATED NUTRITIONAL NEEDS. 1. CONTINUE CARDIAC MECHANICAL DIET TOLERATED 2. CONTINUE ENSURE BID 3. ENCOURAGE PO INTAKE AND PROVIDE ASSISTANCE WITH MEALS 4. RD TO FOLLOW-UP 2-3 DAYS, HIGH RISK JUAN KAT, RD
[2019-11-18 12:00] VITALS: BP 124/49
--- NOTE | 2019-11-18 12:00 | NUR ---
VITAL SIGNS TAKEN AND TOLERATED WELL.CALL LIGHT WITHIN REACH. NO S/S OF RESPIRATORY DISTRESS OR DISCOMFORT NOTED AT THIS TIME. WILL CONTINUE TO MONITOR.
--- NOTE | 2019-11-18 13:00 | NUR ---
BREATHING TX WAS OMITTED DUE TO HIGHER CLINICAL PRIORITY.
--- NOTE | 2019-11-18 13:00 | NUR ---
SCHEDULED MEDICATION APRESOLINE NOT GIVEN DUE TO LOW BP 124/49, HR 62.
--- NOTE | 2019-11-18 15:00 | NUR ---
PT RESTING IN BED. CALL LIGHT WITHIN REACH. NO S/S OF RESPIRATORY DISTRESS OR DISCOMFORT NOTED AT THIS TIME. WILL CONTINUE TO MONITOR.
[2019-11-18 16:00] VITALS: BP 121/54
--- NOTE | 2019-11-18 16:00 | NUR ---
VITAL SIGNS TAKEN AND TOLERATED WELL. CALL LIGHT WITHIN REACH. NO S/S OF RESPIRATORY DISTRESS OR DISCOMFORT NOTED AT THIS TIME. WILL CONTINUE TO MONITOR.
[2019-11-18] MEDS: ATORVASTATIN 20 MG TAB PO SCH (17:47)
--- NOTE | 2019-11-18 17:47 | NUR ---
SCHEDULED MEDICATION GIVEN AND TOLERATED WELL. CALL LIGHT WITHIN REACH. NO S/S OF RESPIRATORY DISTRESS OR DISCOMFORT NOTED AT THIS TIME. WILL CONTINUE TO MONITOR.
--- NOTE | 2019-11-18 18:00 | NUR ---
DISCHARGE PAPERWORK GIVEN TO PATIENT. SHE IS UNABLE TO SIGN. 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
--- NOTE | 2019-11-18 19:35 | NUR ---
IV REMOVED- CANNULA INTACT, ID BAND REMOVED. PT DRESSED BY VIMAL HERNANDEZ.
--- NOTE | 2019-11-18 19:39 | NUR ---
VIMAL HERNANDEZ ASSISTED PT VIA WHEELCHAIR TO FRONT LOBBY WHERE FAMILY AWAITING PT TO TAKE HER HOME.
--- NOTE | 2019-11-18 20:02 | NUR ---
PT WAS D/C HOME
== END 2019-11-18 19:40 | disposition home health service (06) | DRG 280 ==
LOC: MED 18:30 → MTU 21:19
PROVIDERS: ADMIT Family Medicine; ATTEND Family Medicine
DX: I13.0 Hypertensive heart and chronic kidney disease with heart failure and stage 1 through stage 4 chronic kidney disease, or unspecified chronic kidney disease (principal); I21.A1 Myocardial infarction type 2; N17.0 Acute kidney failure with tubular necrosis; I50.43 Acute on chronic combined systolic (congestive) and diastolic (congestive) heart failure; E44.0 Moderate protein-calorie malnutrition; Z68.38 Body mass index [BMI] 38.0-38.9, adult; Z20.828 Contact with and (suspected) exposure to other viral communicable diseases; R19.7 Diarrhea, unspecified; M25.561 Pain in right knee; E83.52 Hypercalcemia; E87.6 Hypokalemia; D64.9 Anemia, unspecified; F01.50 Vascular dementia, unspecified severity, without behavioral disturbance, psychotic disturbance, mood disturbance, and anxiety; F20.9 Schizophrenia, unspecified; K80.20 Calculus of gallbladder without cholecystitis without obstruction; M47.817 Spondylosis without myelopathy or radiculopathy, lumbosacral region; K44.9 Diaphragmatic hernia without obstruction or gangrene; R91.1 Solitary pulmonary nodule; J44.9 Chronic obstructive pulmonary disease, unspecified; I25.10 Atherosclerotic heart disease of native coronary artery without angina pectoris; N18.9 Chronic kidney disease, unspecified; I70.202 Unspecified atherosclerosis of native arteries of extremities, left leg; E27.8 Other specified disorders of adrenal gland; I08.3 Combined rheumatic disorders of mitral, aortic and tricuspid valves; I27.20 Pulmonary hypertension, unspecified; Z79.899 Other long term (current) drug therapy; Z83.3 Family history of diabetes mellitus; Z80.3 Family history of malignant neoplasm of breast; Z82.49 Family history of ischemic heart disease and other diseases of the circulatory system
CPT/HCPCS: 36415; 71045; 80048; 80053; 80305; 81001; 82150; 82306; 82570; 83036; 83690; 83735; 83880; 84100; 84436; 84439; 84443; 84479; 84484; 85025; 85610; 85730; 87081; 87804; 93005; 93925; 93970; 94640; 97110; 97112; 97116; 97161-GP; 97530; 99285; J0630; J1644; J1940; J7030; Q0092

== ENCOUNTER 2020-02-11 14:52 | Emergency (ER) | payer OTHER, MEDICAID ==
[~2020-02-11] VITALS: Ht 170.2 cm; Wt 50.8 kg
[~2020-02-11 14:52] MED LIST changes: -ALBU0.0912 IH; +ALBU3SOL28 IH; -ASPI-1822 PO; +FAMO40PD4 PO; +FURO-570 PO; -FURO-572 PO; +HYDR-5122 PO; -MONT10TA35 PO; +QUET25TA PO; -RIS1 PO; +ROC.25 PO; -TAM75 PO
--- NOTE | 2020-02-11 15:03 | NUR ---
PT W/C ASSISTED TO BED 11.
[2020-02-11 15:05] VITALS: BP 159/100
--- NOTE | 2020-02-11 15:12 | NUR ---
74 Y/O BIB COUSIN ROSIBEL C/O FACE SWELLING , RUNNY NOSE X 3 DAYS , SHAKEEL PINK EYES & GOT MED MOXIFLOXIN EYEDRROP FROM HER DOCTOR 02/04/20. PMH: DEMENTIA, COPD, CHF, SEVERE ANEMIA RX: EXTENSIVE LIST SEE CHART NKA
--- NOTE | 2020-02-11 15:20 | NUR ---
Dr. Buck at pt bedside.
[2020-02-11 15:45] VITALS: BP 159/100
--- NOTE | 2020-02-11 15:45 | NUR ---
Patient discharged with v/s stable. Written and verbal after care instructions given and explained. Patient alert, oriented and verbalized understanding of instructions. Wheel Chair Assisted with by caregiver. All questions addressed prior to discharge. ID band removed. Patient advised to follow up with PMD. Rx of prednisone 50mg PO X5days given. Patient educated on indication of medication including possible reaction and side effects. Opportunity to ask questions provided and answered.
== END 2020-02-11 15:45 | disposition home or self-care (01) ==
LOC: MED 14:52
DX: H10.89 Other conjunctivitis (principal); R22.0 Localized swelling, mass and lump, head; I11.9 Hypertensive heart disease without heart failure; F03.90 Unspecified dementia, unspecified severity, without behavioral disturbance, psychotic disturbance, mood disturbance, and anxiety; J44.9 Chronic obstructive pulmonary disease, unspecified; Z79.899 Other long term (current) drug therapy
CPT/HCPCS: 99283